=== PATIENT | male | born 1960 | race Caucasian/White ===

== ENCOUNTER 2020-02-10 10:08 | Outpatient (REF) | payer BC, SELFPAY ==
[2020-02-10 11:46] LABS: Estimated Average Glucose 166 mg/dL; Hemoglobin A1c % 7.4 %
[2020-02-10 12:02] LABS: Alanine Aminotransferase 55 U/L (0-40); Anion Gap 12 (12-20); Aspartate Amino Transferase 30 U/L (5-37); Blood Urea Nitrogen 15 mg/dL (9-16); Calcium 8.8 mg/dL (8.4-10.2); Carbon Dioxide 28 mmol/L (22-29); Chloride 102 mmol/L (96-108); Cholesterol 134 mg/dL; Estimated Glomerular Filt Rate > 60; Glucose Fasting 118 mg/dL (60-99); HDL Cholesterol 31 mg/dL; LDL Cholesterol Calculated 85 mg/dl; Potassium 4.6 mmol/l (3.3-5.1); Sodium 137 mmol/L (135-145); Triglycerides 94 mg/dL
[2020-02-10 12:23] LABS: Creatinine Urine 162.46 mg/dL; Microalbum/Creatinine Ratio Ur 14.1 ug/mg cr
== END 2020-02-10 10:09 | disposition home or self-care (01) ==
LOC: HO.HMGCLDS 10:08
PROVIDERS: PCP Internal Medicine; Visit Provider Internal Medicine
DX: E78.5 Hyperlipidemia, unspecified (principal); I10 Essential (primary) hypertension; E11.65 Type 2 diabetes mellitus with hyperglycemia
CPT/HCPCS: 80048; 80061; 82043; 83036; 84450; 84460

== ENCOUNTER 2020-05-27 10:47 | Outpatient (REF) | payer BC, SELFPAY ==
[2020-05-27 14:36] LABS: Alanine Aminotransferase 45 U/L (0-40); Anion Gap 13 (12-20); Aspartate Amino Transferase 25 U/L (5-37); Blood Urea Nitrogen 19 mg/dL (9-16); Calcium 8.6 mg/dL (8.4-10.2); Carbon Dioxide 26 mmol/L (22-29); Chloride 101 mmol/L (96-108); Cholesterol 122 mg/dL; Estimated Glomerular Filt Rate > 60; Glucose Fasting 119 mg/dL (60-99); HDL Cholesterol 26 mg/dL; LDL Cholesterol Calculated 78 mg/dl; Potassium 4.3 mmol/L (3.3-5.1); Sodium 136 mmol/L (135-145); Triglycerides 93 mg/dL
[2020-05-27 14:39] LABS: Microalbumin Urine < 5.0 mg/L
== END 2020-05-27 10:48 | disposition home or self-care (01) ==
LOC: HO.HMGCLDS 10:47
PROVIDERS: PCP Internal Medicine; Visit Provider Internal Medicine
DX: I10 Essential (primary) hypertension (principal); E66.9 Obesity, unspecified; E78.2 Mixed hyperlipidemia; E11.65 Type 2 diabetes mellitus with hyperglycemia
CPT/HCPCS: 36415; 80048; 80061; 82043; 84450; 84460

== ENCOUNTER 2020-10-24 11:48 | Outpatient (REF) | payer BC, SELFPAY ==
[2020-10-24 14:13] LABS: Estimated Average Glucose 209 mg/dL; Hemoglobin A1C 282.1692 umol/L; Hemoglobin A1c % 8.9 %
[2020-10-24 15:26] LABS: Alanine Aminotransferase 33 U/L (0-40); Anion Gap 15 (12-20); Aspartate Amino Transferase 21 U/L (5-37); Blood Urea Nitrogen 13 mg/dL (9-16); Calcium 8.9 mg/dL (8.4-10.2); Carbon Dioxide 24 mmol/L (22-29); Chloride 105 mmol/L (96-108); Cholesterol 121 mg/dL; Estimated Glomerular Filt Rate > 60; Glucose Fasting 151 mg/dL (60-99); HDL Cholesterol 30 mg/dL; LDL Cholesterol Calculated 68 mg/dl; Potassium 4.6 mmol/L (3.3-5.1); Sodium 139 mmol/L (135-145); Triglycerides 119 mg/dL
== END 2020-10-24 11:49 | disposition home or self-care (01) ==
LOC: HO.HMGCLDS 11:48
PROVIDERS: PCP Internal Medicine; Visit Provider Internal Medicine
DX: E11.65 Type 2 diabetes mellitus with hyperglycemia (principal); E66.9 Obesity, unspecified; E78.2 Mixed hyperlipidemia; I10 Essential (primary) hypertension
CPT/HCPCS: 36415; 80048; 80061; 83036; 84450; 84460

== ENCOUNTER 2021-02-03 07:05 | Outpatient (REF) | payer BC, SELFPAY ==
[2021-02-03 12:06] LABS: Estimated Average Glucose 203 mg/dL; Hemoglobin A1c % 8.7 %
[2021-02-03 12:11] LABS: Alanine Aminotransferase 54 U/L (0-40); Anion Gap 14 (12-20); Aspartate Amino Transferase 29 U/L (5-37); Blood Urea Nitrogen 13 mg/dL (9-16); Calcium 8.9 mg/dL (8.4-10.2); Carbon Dioxide 25 mmol/L (22-29); Chloride 103 mmol/L (96-108); Cholesterol 180 mg/dL; Estimated Glomerular Filt Rate > 60; Glucose Fasting 169 mg/dL (60-99); HDL Cholesterol 30 mg/dL; LDL Cholesterol Calculated 130 mg/dl; Potassium 4.6 mmol/L (3.3-5.1); Sodium 137 mmol/L (135-145); Triglycerides 103 mg/dL
== END 2021-02-03 07:06 | disposition home or self-care (01) ==
LOC: HO.HMGCLDS 07:05
PROVIDERS: PCP Internal Medicine; Visit Provider Internal Medicine
DX: I10 Essential (primary) hypertension (principal); E66.9 Obesity, unspecified; E78.2 Mixed hyperlipidemia; E11.65 Type 2 diabetes mellitus with hyperglycemia
CPT/HCPCS: 36415; 80048; 80061; 83036; 84450; 84460

== ENCOUNTER 2021-05-24 06:01 | Outpatient (REF) | payer BC, SELFPAY ==
[2021-05-24 11:34] LABS: Alanine Aminotransferase 37 U/L (0-40); Anion Gap 16 (12-20); Aspartate Amino Transferase 21 U/L (5-37); Blood Urea Nitrogen 14 mg/dL (9-16); Calcium 9.3 mg/dL (8.4-10.2); Carbon Dioxide 26 mmol/L (22-29); Chloride 101 mmol/L (96-108); Cholesterol 123 mg/dL; Estimated Glomerular Filt Rate > 60; Glucose Fasting 133 mg/dL (60-99); HDL Cholesterol 27 mg/dL; LDL Cholesterol Calculated 76 mg/dl; Potassium 4.7 mmol/L (3.3-5.1); Sodium 138 mmol/L (135-145); Triglycerides 102 mg/dL
[2021-05-24 12:13] LABS: Creatinine Urine 214.45 mg/dL; Microalbum/Creatinine Ratio Ur 9.3 ug/mg cr
[2021-05-24 12:17] LABS: Estimated Average Glucose 177 mg/dL; Hemoglobin A1c % 7.8 %
== END 2021-05-24 06:02 | disposition home or self-care (01) ==
LOC: HO.HMGCLDS 06:01
PROVIDERS: Visit Provider Internal Medicine
DX: E11.65 Type 2 diabetes mellitus with hyperglycemia (principal); E78.2 Mixed hyperlipidemia; E66.9 Obesity, unspecified; I10 Essential (primary) hypertension
CPT/HCPCS: 36415; 80048; 80061; 82043; 83036; 84450; 84460

== ENCOUNTER 2021-07-06 16:35 | Outpatient (REF) | payer BC, SELFPAY ==
[2021-07-06 16:48] LABS: Appearance Urine CLEAR; Color Urine YELLOW; Glucose Urine UA NEG (NEG); Leukocyte Esterase Urine NEG (NEG); Nitrite Urine NEG (NEG); Specific Gravity - Urine >= 1.030 (1.005-1.025); UACC Culture Trigger NO; Urine Blood 1+ (NEG); Urine Ketones NEG (NEG); Urine Protein 1+ MG/DL (NEG-TRACE)
[2021-07-06 17:02] LABS: Bacteria Urine TRACE /LPF; RBC Urine 0-2 /HPF (0); Squamous Epithelial Cell Urine TRACE /LPF; WBC Urine 0 /HPF (0-4)
== END 2021-07-06 16:36 | disposition home or self-care (01) ==
LOC: HO.LNP 16:35
PROVIDERS: Visit Provider Internal Medicine
DX: R10.30 Lower abdominal pain, unspecified (principal)
CPT/HCPCS: 81001

== ENCOUNTER 2021-07-28 08:53 | Outpatient (REF) | payer BC, SELFPAY ==
--- NOTE | ~2021-07-28 | US_ITS ---
EXAMINATION: US PELVIS LIMITED (BLADDER) CLINICAL INFORMATION: Lower abdominal pain, unspecified. COMPARISON: X-ray abdomen 08/29/2019. TECHNIQUE: Real-time imaging of the bladder. FINDINGS: BLADDER: Well distended and normal. Bilateral ureteral jets are demonstrated. Prevoid bladder volume is 524 mL. Postvoid bladder volume is 166 mL. ADDITIONAL FINDINGS: The prostate is enlarged. US/US bladder IMPRESSION: Moderate to significant postvoid urinary bladder retention. Normal bilateral ureteral jets seen.
== END 2021-07-28 08:54 | disposition home or self-care (01) ==
LOC: HO.HMGCX 08:53
PROVIDERS: Visit Provider Internal Medicine
DX: R10.30 Lower abdominal pain, unspecified (principal); R31.29 Other microscopic hematuria
CPT/HCPCS: 76857

== ENCOUNTER 2021-09-05 08:09 | Outpatient (REF) | payer BC, SELFPAY ==
[2021-09-05 11:56] LABS: Alanine Aminotransferase 39 U/L (0-40); Anion Gap 16 (12-20); Aspartate Amino Transferase 20 U/L (5-37); Blood Urea Nitrogen 24 mg/dL (9-16); Calcium 9.1 mg/dL (8.4-10.2); Carbon Dioxide 24 mmol/L (22-29); Chloride 102 mmol/L (96-108); Cholesterol 125 mg/dL; Estimated Glomerular Filt Rate > 60; Glucose Fasting 147 mg/dL (60-99); HDL Cholesterol 29 mg/dL; LDL Cholesterol Calculated 76 mg/dl; Potassium 4.7 mmol/L (3.3-5.1); Sodium 137 mmol/L (135-145); Triglycerides 101 mg/dL
[2021-09-05 12:18] LABS: Estimated Average Glucose 166 mg/dL; Hemoglobin A1c % 7.4 %
== END 2021-09-05 08:10 | disposition home or self-care (01) ==
LOC: HO.HMGCLDS 08:09
PROVIDERS: PCP Internal Medicine; Visit Provider Internal Medicine
DX: E11.65 Type 2 diabetes mellitus with hyperglycemia (principal); I10 Essential (primary) hypertension; E66.9 Obesity, unspecified; E78.2 Mixed hyperlipidemia
CPT/HCPCS: 36415; 80048; 80061; 83036; 84450; 84460

== ENCOUNTER 2022-02-02 06:16 | Outpatient (REF) | payer BC, SELFPAY ==
[2022-02-02 12:00] LABS: Estimated Average Glucose 174 mg/dL; Hemoglobin A1c % 7.7 %
[2022-02-02 12:50] LABS: Alanine Aminotransferase 43 U/L (0-40); Anion Gap 16 (12-20); Aspartate Amino Transferase 22 U/L (5-37); Blood Urea Nitrogen 15 mg/dL (9-16); Carbon Dioxide 25 mmol/L (22-29); Chloride 102 mmol/L (96-108); Cholesterol 90 mg/dL; Estimated Glomerular Filt Rate > 60; Glucose Fasting 154 mg/dL (60-99); HDL Cholesterol 25 mg/dL; LDL Cholesterol Calculated 50 mg/dl; Potassium 4.3 mmol/L (3.3-5.1); Sodium 139 mmol/L (135-145); Triglycerides 78 mg/dL
== END 2022-02-02 06:17 | disposition home or self-care (01) ==
LOC: HO.HMGCLDS 06:16
PROVIDERS: PCP Internal Medicine; Visit Provider Internal Medicine
DX: I10 Essential (primary) hypertension (principal); E66.9 Obesity, unspecified; E78.2 Mixed hyperlipidemia; E11.65 Type 2 diabetes mellitus with hyperglycemia
CPT/HCPCS: 36415; 80048; 80061; 83036; 84450; 84460

== ENCOUNTER → 2022-03-19 07:11 | Outpatient (REF) | payer BC, SELFPAY | LOC: HO.CARD 07:11 | PROVIDERS: Visit Provider Internal Medicine | DX: R00.0 Tachycardia, unspecified (principal); I10 Essential (primary) hypertension | CPT/HCPCS: 93242 ==

== ENCOUNTER → 2022-03-22 12:38 | Outpatient (BNVA) | payer BC, SELFPAY | PROVIDERS: PCP Internal Medicine; Referring Provider Internal Medicine; Visit Provider Internal Medicine | DX: Z13.89 Encounter for screening for other disorder (principal) ==

== ENCOUNTER 2022-03-22 13:21 | Inpatient (IN) | payer BC, SELFPAY ==
[2022-03-22 13:25] VITALS: BP 147/95; PULSE 138; RESP 18; TEMP 36.4; O2SAT 96; BMI 35.9
--- NOTE | 2022-03-22 13:40 | ED_ITS ---
HPI - General Adult General Chief complaint: Arrhythmia/Palpitations Stated complaint: sent from cardiology. a-flutter Time Seen by Provider: 03/22/22 13:39 Source: patient Mode of arrival: ambulatory Limitations: no limitations History of Present Illness HPI narrative: Patient is a 61 year old assigned male at with a history of HTN and DM presenting to the emergency department today with palpitations. Patient states that over the last few weeks he has had palpitations. Patient states that he was evaluated by cardiology who recommended he come to the emergency department, immediately. Patient states that he is somewhat short of breath. Patient denies any dizziness, lightheadedness, abdominal pain, nausea, vomiting, fever, chills, blurry vision, double vision, loss of vision, chest pain, back pain, night sweats, pain with urination, increased urinary frequency, increased urinary urgency, blood in his urine or stool, syncope or a near syncopal episode, recent trauma or falls, bowel incontinence, bladder incontinence, bowel retention, bladder retention, or any other complaints at this time. Onset (ago): week(s) Severity: mild Severity scale (1-10): 2 Relieving factors: none Exacerbating factors: none Associated symptoms: shortness of breath Treatments prior to arrival: none Related Data Home Medications Medication Instructions Recorded Confirmed aspirin 81 mg tablet,delayed 81 mg PO DAILY 03/07/22 03/22/22 release (Adult Low Dose Aspirin) Previous Rx's Medication Instructions Recorded atorvastatin 80 mg tablet 80 mg PO DAILY #90 tabs 12/19/21 lisinopril 20 mg tablet 20 mg PO DAILY #90 tabs 12/19/21 metformin 1,000 mg tablet 1,000 mg PO BID #180 tabs 12/19/21 metoprolol succinate 25 mg 25 mg PO DAILY #30 tabs 03/07/22 tablet,extended release 24 hr Allergies Allergy/AdvReac Type Severity Reaction Status Date / Time No Known Allergies Allergy Verified 03/22/22 12:52 Review of Systems Constitutional: Constitutional: Reports no additional constitutional complaints, Denies chills, Denies fever(s) and Denies night sweats Eyes: Eyes: Reports no additional eye complaints, Denies blurry vision, Denies change in vision, Denies diplopia, Denies eye discharge, Denies loss of vision and Denies eye pain ENT: Denies dizziness Cardiovascular: Cardiovascular: Reports no additional cardiovascular complaints, Denies chest pain, Reports rapid heart rate, Denies lightheadedness, Denies Loss of Consciousness and Reports dyspnea Respiratory: Respiratory: Reports no additional respiratory complaints and Reports dyspnea Gastrointestinal: Gastrointestinal: Reports no additional gastrointestinal complaints, Denies abdominal pain, Denies melena, Denies hematochezia, Denies change in bowel habits and Denies change in stool character Genitourinary: Genitourinary: Reports no additional male genitourinary complaints, Denies hematuria, Denies oliguria, Denies difficulty urinating, Denies dysuria, Denies urinary frequency, Denies urinary hesitancy, Denies urin db incontinence and Denies urinary urgency Musculoskeletal: Musculoskeletal: Reports no additional musculoskeletal complaints, Denies numbness and Denies tingling Neurologic: Denies dizziness, Denies loss of vision, Denies numbness and Denies tingling Psychiatric: Psychiatric: Reports no additional psychiatric complaints Endocrine: Endocrine: Reports no additional endocrine complaints Hematologic/Lymphatic: Hematologic/Lymphatic: Reports no additional hematologic/lymphatic complaints Allergic/Immunologic: Allergic/Immunologic: Reports no additional allergic/immunologic complaints [facility] Past Medical History Attestation statement: The following information was validated with the patient. Source: old records reviewed and nursing notes reviewed Medical History COVID-19 vaccination refused Depression Diabetes mellitus with hyperglycemia, without long-term current use of insulin Essential hypertension History of COVID-19 Incomplete right bundle branch block Lower abdominal pain Mixed dyslipidemia Obesity Sinus tachycardia Tubular adenoma of colon Urethral stricture Surgical History No pertinent past surgical history Family History Family History Father Diabetes mellitus Smoker High cholesterol Mother Cirrhosis Brother No problems noted. Sister No problems noted. Son No problems noted. Daughter No problems noted. 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 Current occupational exposures/hazards: Yes Cognitive needs: No Hearing needs: No Vision needs: Yes Physical Exam ED Vital Signs: Vital Signs - 24 hr 03/22/22 13:25 Temperature 97.5 F Pulse Rate 138 H Respiratory Rate 18 Blood Pressure 147/95 H Pulse Oximetry 96 Oxygen Delivery Method Room Air BMI result Body Mass Index 35.9 Const General: cooperative, no acute distress, alert and awake Nutritional Appearance: well nourished Orientation/consciousness: patient oriented x3 Limitations: no limitations HENMT Head: Yes normal to inspection and Yes atraumatic Ears: hearing grossly normal bilaterally and external ears normal General nose exam: Normal external nose present, no nasal discharge noted and no epistaxis Face and sinus: Yes normal facial exam, No abrasion and No laceration Mouth: Normal oral and palatal mucosa present, no drooling and no muffled voice Eyes General: appearance normal, both eyes and all related structures Periorbital: periorbital findings normal Eyelids: Yes eyelids normal Conjunctivae: conjunctivae normal Pupils: Equal, round and reactive pupils present EOM: EOMs intact bilaterally Neck Neck: Yes normal visual inspection, Yes full ROM and Yes no lymphadenopathy Chest Chest palpation & inspection: normal inspection of the chest Resp Effort & Inspection: normal respiratory effort and able to speak in complete sentences Auscultation: clear to auscultation bilaterally Cardio Rate: regular rate Rhythm: abnormal rhythm irregularly irregular GI Inspection: Yes normal to inspection Palpation (GI): Soft to palpation, not firm, nontender, no guarding and not rigid Neuro General: patient oriented x3 and moves all extremities Cranial nerves: Yes Equal, round and reactive pupils present Cognition (Neuro): normal cognition Motor exam (neuro): 5/5 motor strength present throughout Sensory Exam: Normal double simultaneous stimulation for sensation Coordination: [id number] test normal Extrem General: Yes normal to inspection, Yes full ROM and Yes capillary refill normal Psych Appearance: grossly normal Mental Status: mental status grossly normal Affect: normal affect Attitude: cooperative Thought process: Normal thought process present Thought content: Normal thought content present Insight: Good insight present (Psych) Medications Administered Generic Name Dose Route Start Last Admin Trade Name Freq PRN Reason Stop Dose Admin Diltiazem HCl 125 mg/ Sodium 125 mls @ 0 mls/hr 03/22/22 16:30 03/22/22 17:21 Chloride IVCONT 15 mg/hr .Q0M MUU 15 mls/hr Titration Protocol Per Protocol Discontinued Medications Generic Name Dose Route Start Last Admin Trade Name Lamar PRN Reason Stop Dose Admin Diltiazem HCl 10 mg 03/22/22 16:14 03/22/22 16:20 Diltiazem Hcl 50 Mg/10 Ml Vial IVPUSH 03/22/22 16:15 10 mg STAT STA Administration Sodium Chloride 1,000 mls @ 999 mls/hr 03/22/22 14:15 03/22/22 15:41 Ns IV 03/22/22 15:15 Infused .Q1H1M UMU Infusion Metoprolol Tartrate 5 mg 03/22/22 13:40 03/22/22 14:16 Metoprolol Tartrate 5 Mg/5 Ml Vial IVPUSH 03/22/22 13:41 5 mg ONCE ONE Administration Metoprolol Tartrate 5 mg 03/22/22 14:48 03/22/22 15:25 Metoprolol Tartrate 5 Mg/5 Ml Vial IVPUSH 03/22/22 14:49 5 mg ONCE ONE Administration Metoprolol Tartrate 5 mg 03/22/22 15:31 03/22/22 15:52 Metoprolol Tartrate 5 Mg/5 Ml Vial IVPUSH 03/22/22 15:32 5 mg ONCE ONE Administration Medical Decision Making Medical Decision Making [facility] Narrative: Patient is a 61 year old assigned male at with a history of HTN and DM presenting to the emergency department today with a rapid heart rate. Patient's physical exam showed a rapid irregular cardiac rhythm but was otherwise unremarkable. Patient's blood work was unremarkable. Patient's EKG auto-read as sinus tachycardia however, the vice president marketing & development read it as atrial flutter with a rapid rate. Patient's chest x-ray showed no acute process. I explained my physical exam findings as well as all test results to the patient. I answered all questions asked by the patient. Patient was given 5mg of lopressor every 15 minutes for a total of 15mg that did not decrease his heart rate. Patient was given 10mg of Cardizem that did not decrease his heart rate. Patient was then started on a cardizem drip. I spoke to Dr. Valadez who recommended the patient be admitted to medicine and cardiology will consult. I spoke to the hospitalist team who agreed to admission. Patient verbalized agreement and understanding with this treatment plan and admission. Differential Diagnosis Differential Diagnoses: The differential diagnosis associated with the prese ntation includes atrial flutter with RVR Consult Healthcare Provider Management of the patient was discussed with: Hospitalist (agreed to admission) and District Resource Officer (spoke to Dr. Valadez who recommended admission with cards follow) Lab Data MDM Lab Attestation statement: I reviewed the patient's lab results. Result Diagrams: 03/22/22 13:55 03/22/22 13:55 Labs: Lab Results 03/22/22 03/22/22 03/22/22 Range/Units 13:55 13:55 13:55 WBC 9.5 (4.8-10.8) X10*3/uL RBC 5.33 (4.60-5.80) X10*6/uL Hgb 14.6 (14.0-18.0) g/dl Hct 43.8 (42.0-52.0) % MCV 82.2 (80.0-98.0) fL MCH 27.4 (27.0-33.0) pg MCHC 33.3 (31.0-36.0) g/dl RDW 12.7 (11.0-16.0) % Plt Count 347 (160-400) X10*3/uL MPV 9.1 L (9.4-12.4) fL Immature Gran % (Auto) 0.3 (0.0-0.4) % Neut % (Auto) 59.1 (45-73) % Lymph % (Auto) 25.1 (20-40) % [place] % (Auto) 9.8 (2-11) % Eos % (Auto) 5.0 H (0-4) % Baso % (Auto) 0.7 (0-2) % Lymph # (Auto) 2.4 (1.2-4.9) X10*3/uL [place] # (Auto) 0.9 (0.1-1.2) X10*3/uL Eos # (Auto) 0.5 H (0.0-0.4) X10*3/uL Baso # (Auto) 0.1 (0.0-0.2) X10*3/uL Abs Immat Gran (auto) 0.03 (0.00-0.03) X10*3/uL Absolute Neuts (auto) 5.6 (2.0-8.3) x10*3/uL Absolute Nucleated RBC 0.000 (0.0-0.012) X10*3/uL Nucleated RBC % (auto) 0.0 (0.0-0.2) /100WBC PT 13.6 H (10.0-13.1) SEC INR 1.2 H (0.9-1.1) APTT 33.3 (26.0-36.4) SEC D-Dimer High Sensitivty NG/ML Sodium 138 (135-145) mmol/L Potassium 4.8 (3.3-5.1) mmol/L Chloride 106 (96-108) mmol/L Carbon Dioxide 23 (22-29) mmol/L Anion Gap 14 (12-20) BUN 17 H (9-16) mg/dL Creatinine 0.86 (0.5-1.4) mg/dL Estim Creat Clear Calc 115.1 Estimated GFR > 60 Random Glucose 122 H (60-115) mg/dL Calcium 9.0 (8.4-10.2) mg/dL Total Bilirubin 0.5 (0.0-1.0) mg/dL AST 19 (5-37) U/L ALT 29 (0-40) U/L Alkaline Phosphatase 60 (39-117) U/L Troponin I High Sens (<3.5-35.0) ng/L Total Protein 6.8 (6.5-8.0) g/dL Albumin 4.1 (3.5-5.0) g/dL COVID-19 (BHUPINDER) (Negative) COVID-19 Clin Com 03/22/22 03/22/22 03/22/22 Range/Units 13:55 17:07 17:08 WBC (4.8-10.8) X10*3/uL RBC (4.60-5.80) X10*6/uL Hgb (14.0-18.0) g/dl Hct (42.0-52.0) % MCV (80.0-98.0) fL MCH (27.0-33.0) pg MCHC (31.0-36.0) g/dl RDW (11.0-16.0) % Plt Count (160-400) X10*3/uL MPV (9.4-12.4) fL Immature Gran % (Auto) (0.0-0.4) % Neut % (Auto) (45-73) % Lymph % (Auto) (20-40) % [place] % (Auto) (2-11) % Eos % (Auto) (0-4) % Baso % (Auto) (0-2) % Lymph # (Auto) (1.2-4.9) X10*3/uL [place] # (Auto) (0.1-1.2) X10*3/uL Eos # (Auto) (0.0-0.4) X10*3/uL Baso # (Auto) (0.0-0.2) X10*3/uL Abs Immat Gran (auto) (0.00-0.03) X10*3/uL Absolute Neuts (auto) (2.0-8.3) x10*3/uL Absolute Nucleated RBC (0.0-0.012) X10*3/uL Nucleated RBC % (auto) (0.0-0.2) /100WBC PT (10.0-13.1) SEC INR (0.9-1.1) APTT (26.0-36.4) SEC D-Dimer High Sensitivty 218 NG/ML Sodium (135-145) mmol/L Potassium (3.3-5.1) mmol/L Chloride (96-108) mmol/L Carbon Dioxide (22-29) mmol/L Anion Gap (12-20) BUN (9-16) mg/dL Creatinine (0.5-1.4) mg/dL Estim Creat Clear Calc Estimated GFR Random Glucose (60-115) mg/dL Calcium (8.4-10.2) mg/dL Total Bilirubin (0.0-1.0) mg/dL AST (5-37) U/L ALT (0-40) U/L Alkaline Phosphatase (39-117) U/L Troponin I High Sens 4.2 (<3.5-35.0) ng/L Total Protein (6.5-8.0) g/dL Albumin (3.5-5.0) g/dL COVID-19 (BHUPINDER) Negative (Negative) COVID-19 Clin Com See Note Radiology Impression Discussion of test interpretation with radiology: I have reviewed the radiologist's reading. Radiologist Impression: EXAMINATION: XR CHEST CLINICAL INFORMATION: Atrial fibrillation. COMPARISON: Chest and rib radiographs dated 04/25/2018. TECHNIQUE: 2 views of the chest were obtained. FINDINGS: No significant abnormality is noted involving the heart, lungs, mediastinum, bony thorax or soft tissues. XR/XR chest 2V IMPRESSION: No acute cardiopulmonary process. Dictated By: Jose Angel Gamboa MD Signed By: Electronically signed by Jose Angel Gamboa MD 03/22/22 1506 Critical Care Time Critical Care Time Critical Care Time: Yes Total Critical Care Time: 30 Attestation: I spent 30 minutes of Critical Care Time with this patient. This does not include time spent on separately reported billable procedures. Discharge Plan Discharge Clinical Impression: Atrial flutter with rapid ventricular response Patient Disposition: Admitted As Inpatient Prescriptions: No Action metformin 1,000 mg tablet 1,000 mg PO BID Qty: 180 1RF atorvastatin 80 mg tablet 80 mg PO DAILY Qty: 90 1RF lisinopril 20 mg tablet 20 mg PO DAILY Qty: 90 1RF aspirin [Adult Low Dose Aspirin] 81 mg tablet,delayed release (DR/EC) 81 mg PO DAILY metoprolol succinate 25 mg tablet extended release 24 hr 25 mg PO DAILY Qty: 30 1RF
--- NOTE | 2022-03-22 13:41 | ECG_ITS ---
Test Reason : PALPUTATIONS Blood Pressure : / mmHG Vent. Rate : 137 BPM Atrial Rate : 137 BPM P-R Int : 120 ms QRS Dur : 130 ms QT Int : 306 ms P-R-T Axes : 072 122 -10 degrees QTc Int : 462 ms Atrial flutter Right bundle branch block Left posterior fascicular block Bifascicular block Abnormal ECG When compared with ECG of 06-MAR-2010 07:26, Vent. rate has increased BY 77 BPM Right bundle branch block has replaced Incomplete right bundle branch block Nonspecific T wave abnormality now evident in Inferior leads T wave amplitude has decreased in Anterior leads Referred By: Fior Evans Electronically Signed By:Asher Garsia
[2022-03-22 13:59] LABS: MANUAL DIFF FLAG NO
[2022-03-22 14:01] LABS: Basophils Absolute Auto 0.1 X10*3/uL (0.0-0.2); Basophils Percent Auto 0.7 % (0-2); Eosinophils Absolute Auto 0.5 X10*3/uL (0.0-0.4); Hematocrit 43.8 % (42.0-52.0); Hemoglobin 14.6 g/dl (14.0-18.0); Imm Gran Abs Auto 0.03 X10*3/uL (0.00-0.03); Imm Gran Pct Auto 0.3 % (0.0-0.4); Lymphocytes Absolute Auto 2.4 X10*3/uL (1.2-4.9); Lymphocytes Percent Auto 25.1 % (20-40); Mean Corpuscular HGB Conc 33.3 g/dl (31.0-36.0); Mean Corpuscular Hemoglobin 27.4 pg (27.0-33.0); Mean Corpuscular Volume 82.2 fL (80.0-98.0); Mean Platelet Volume 9.1 fL (9.4-12.4); Monocytes Absolute Auto 0.9 X10*3/uL (0.1-1.2); Monocytes Percent Auto 9.8 % (2-11); Neutrophils Absolute Auto 5.6 x10*3/uL (2.0-8.3); Neutrophils Percent Auto 59.1 % (45-73); Platelet Count 347 X10*3/uL (160-400); Red Blood Count 5.33 X10*6/uL (4.60-5.80); Red Cell Distribution Width 12.7 % (11.0-16.0); White Blood Count 9.5 X10*3/uL (4.8-10.8)
[2022-03-22 14:08] LABS: INTERNATIONAL NORM RATIO 1.2 (0.9-1.1); Prothrombin Time 13.6 SEC (10.0-13.1)
[2022-03-22 14:11] LABS: Partial Thromboplastin Time 33.3 SEC (26.0-36.4)
[2022-03-22] MEDS: 0.9 % Sodium Chloride 1,000 ML 999 ML IV (14:15)
[2022-03-22 14:16] LABS: Alanine Aminotransferase 29 U/L (0-40); Albumin Level 4.1 g/dL (3.5-5.0); Alkaline Phosphatase 60 U/L (39-117); Anion Gap 14 (12-20); Aspartate Amino Transferase 19 U/L (5-37); Bilirubin Total 0.5 mg/dL (0.0-1.0); Blood Urea Nitrogen 17 mg/dL (9-16); Carbon Dioxide 23 mmol/L (22-29); Chloride 106 mmol/L (96-108); Creatinine Clr Calc Pharmacy 115.1; Estimated Glomerular Filt Rate > 60; Glucose Random 122 mg/dL (60-115); Potassium 4.8 mmol/L (3.3-5.1); Sodium 138 mmol/L (135-145); Total Protein 6.8 g/dL (6.5-8.0)
[2022-03-22] MEDS: Metoprolol Tartrate 5 MG/5 ML VIAL IVPUSH ×3 (14:16→15:52)
[2022-03-22 14:23] LABS: Troponin-I High Sensitivity 4.2 ng/L (<3.5-35.0)
[2022-03-22] MEDS: dilTIAZem HCL 50 MG/10 ML VIAL 10 MG IVPUSH (16:20)
[2022-03-22] MEDS: dilTIAZem HCL 125 MG in 0.9 % Sodium Chloride 100 ML 10 MG IVCONT (16:57)
[2022-03-22 17:39] LABS: D Dimer High Sensitivity 218 NG/ML
[2022-03-22 17:41] LABS: COVID-19 Test Negative (Negative); IDNOW Serial# 9DB6401D
--- NOTE | 2022-03-22 18:11 | PM.IMHP ---
History of Present Illness Date of Service: 03/22/22 Chief Complaint: dyspnea 61yo M with HTN, NIDDM, obesity, and HLD who was [place] to [place] Val[place] [facility] [place] his PCP, Dr Jeanna Harris, for a 2-month history of dyspnea on exertion. He denies lightheadedness, palpitations, or chest pain. In the office, he was found to have new-onset atrial flutter with rapid ventricular response in the 130s-140s. He was sent to the ED. He was given 5 mg of IV metoprolol three times without response. He was then given 10 mg of IV diltiazem, also without response. Thus, a diltiazem drip was ordered and hospital admission was requested. Review of Systems Review of Systems: Yes all other systems are reviewed and are negative [facility] Medical History COVID-19 vaccination refused Depression Diabetes mellitus with hyperglycemia, without long-term current use of insulin Essential hypertension History of COVID-19 Incomplete right bundle branch block Lower abdominal pain Mixed dyslipidemia Obesity Sinus tachycardia Tubular adenoma of colon Urethral stricture Family History Father Diabetes mellitus Smoker High cholesterol Mother Cirrhosis Brother No problems noted. Sister No problems noted. Son No problems noted. Daughter No problems noted. 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 Glucose (Glucose Gel 15 Gm Gel..Gram.) 15 gm PO Q15M PRN; Protocol PRN Reason: per Hypoglycemia Standing Ord. Diltiazem HCl 125 mg/ Sodium (Chloride) 125 mls @ 0 mls/hr IVCONT .Q0M [facility]; Protocol Last Titration: 03/22/22 17:21 Dose: 15 mg/hr, 15 mls/hr Insulin Human Lispro (Insulin Lispro 100 Unit/Ml 3 Ml Vial) 0 unit SUBCUT QIDACHS [facility]; Protocol Pharmacy Consult (Consult Rx Perform Med Rec) 1 each MISCELLANE ONCE PRN PRN Reason: will be admitted Pharmacy Consult (Consult Rx Perform Med Rec) 1 each MISCELLANE STAT STA Stop: 03/22/22 17:42 Home Medications Medication Instructions Recorded Confirmed Last Taken Type aspirin 81 mg tablet,delayed 81 mg PO DAILY 03/07/22 03/22/22 Unknown History release (Adult Low Dose Aspirin) Physical Exam Vital Signs and Narrative: Vital Signs: Last Vital Signs Temp 97.5 F 03/22/22 13:25 Pulse 138 H 03/22/22 13:25 Resp 18 03/22/22 13:25 BP 147/95 H 03/22/22 13:25 Pulse Ox 96 03/22/22 13:25 O2 Del Method 03/22/22 13:25 BMI result Body Mass Index 35.9 Gen: in no acute distress HEENT: sclera anicteric, moist mucus membranes Neck: supple, no JVD Lungs: clear to auscultation bilaterally Heart: regular, rapid in the 130s, no murmurs Abd: soft, non-tender, non-distended Ext: no edema Skin: warm/well-perfused Neuro: alert and oriented x3, no focal findings Psych: appropriate affect Results Labs CBC and Chem 7: 03/22/22 13:55 03/22/22 13:55 Labs: Laboratory Results - last 24 hr 03/22/22 03/22/22 03/22/22 13:55 13:55 13:55 MCV 82.2 MCH 27.4 MCHC 33.3 RDW 12.7 Plt Count 347 MPV 9.1 L Immature Gran % (Auto) 0.3 Neut % (Auto) 59.1 Lymph % (Auto) 25.1 [place] % (Auto) 9.8 Eos % (Auto) 5.0 H Baso % (Auto) 0.7 Lymph # (Auto) 2.4 [place] # (Auto) 0.9 Eos # (Auto) 0.5 H Baso # (Auto) 0.1 Abs Immat Gran (auto) 0.03 Absolute Neuts (auto) 5.6 Absolute Nucleated RBC 0.000 Nucleated RBC % (auto) 0.0 PT 13.6 H INR 1.2 H APTT 33.3 D-Dimer High Sensitivty Anion Gap 14 Estim Creat Clear Calc 115.1 Estimated GFR > 60 Random Glucose 122 H Calcium 9.0 Total Bilirubin 0.5 AST 19 ALT 29 Alkaline Phosphatase 60 Troponin I High Sens Total Protein 6.8 Albumin 4.1 COVID-19 (BHUPINDER) COVID-19 Clin Com 03/22/22 03/22/22 03/22/22 13:55 17:07 17:08 MCV MCH MCHC RDW Plt Count MPV Immature Gran % (Auto) Neut % (Auto) Lymph % (Auto) [place] % (Auto) Eos % (Auto) Baso % (Auto) Lymph # (Auto) [place] # (Auto) Eos # (Auto) Baso # (Auto) Abs Immat Gran (auto) Absolute Neuts (auto) Absolute Nucleated RBC Nucleated RBC % (auto) PT INR APTT D-Dimer High Sensitivty 218 Anion Gap Estim Creat Clear Calc Estimated GFR Random Glucose Calcium Total Bilirubin AST ALT Alkaline Phosphatase Troponin I High Sens 4.2 Total Protein Albumin COVID-19 (BHUPINDER) Negative COVID-19 Clin Com See Note Imaging Radiologist's Impressions: Impressions Chest X-Ray 03/22/22 14:40 IMPRESSION: No acute cardiopulmonary process. Assessment and Plan (1) Atrial flutter with rapid ventricular response: Status: Acute Plan 61yo M with HTN, HLD, obesity, and DM2 referred to Cardiology for 2 months of exertional dyspnea and found to have atrial flutter with RVR unresponsive to IV metoprolol and IV diltiazem push # AF/RVR - admit to [facility] [place]. start diltiazem IV infusion. [id number] 2, will anticoagulate with apixaban. check TSH + Mg. check TTE. Cardiology consultation. # HTN - continue lisinopril + metoprolol succinate # DM2, A1c 7.7 (Jan 2022) - hold MTF, give correction-dose lispro # HLD - continue atorvastatin # VTE prophylaxis: apixaban # code status: full I anticipate that the patient will stay at least 2 midnights as an inpatient in the hospital due to the above reasons. It is neither reasonable nor safe to care for them in a less acute setting. Time Spent With Patient Time: Total time managing care of this patient today ____ minutes. Quality Stroke Does the patient have a stroke diagnosis?: No VTE Prior VTE?: No VTE Risk Level:: Medical - moderate - high VTE Device Contraindication: N/A - Device Ordered VTE Drug Contraindication: N/A - Med Ordered
--- NOTE | 2022-03-22 18:21 | PHA.MEDREC ---
Pharmacy Consult ? Medication Reconciliation Pharmacy has completed the medication reconciliation.
[2022-03-22 18:31] LABS: Thyroid Stimulating Hormone 0.68 uIU/mL (0.32-4.0)
[2022-03-22] MEDS: Apixaban 5 MG TABLET PO (22:37)
[2022-03-22] MEDS: Metoprolol Succinate ER 25 MG TAB.ER.24H PO (22:37)
[2022-03-22 23:28] VITALS: BP 114/74; PULSE 107; RESP 16; TEMP 36.4; O2SAT 96
[2022-03-23] VITALS (7 sets, daily range): BP systolic 93–125; BP diastolic 56–83; PULSE 62–133; RESP 14–20; TEMP 36.1–37.1; O2SAT 91–96
[2022-03-23] MEDS: dilTIAZem HCL 125 MG in 0.9 % Sodium Chloride 100 ML 15 MG IVCONT ×2 (02:32→13:55)
[2022-03-23] MEDS: Aspirin Enteric Coated 81 MG TABLET.DR PO (08:29)
[2022-03-23] MEDS: Apixaban 5 MG TABLET PO ×2 (08:29→20:59)
[2022-03-23] MEDS: Atorvastatin Calcium 80 MG TABLET PO (08:29)
[2022-03-23] MEDS: lisinopriL 20 MG TABLET PO (08:30)
[2022-03-23] MEDS: Furosemide 40 MG/4 ML VIAL IVPUSH (10:04)
[2022-03-23] MEDS: Digoxin 0.125 MG TABLET 0.25 MG PO ×3 (10:04→21:00)
--- NOTE | 2022-03-23 11:25 | P.CONCA_ITS ---
History of Present Illness
--- NOTE | 2022-03-23 11:25 | PM.CNCAR ---
History of Present Illness History of Present Illness Date of Service: 03/23/22 Requesting physician: Sanket Valadez Chief complaint: aflutter, CHF Narrative: 61-year-old gentleman who is presenting for atrial flutter. He apparently saw his primary care physician and was referred to our office for atrial flutter. He also has been experiencing some shortness of breath. He was advised to get admitted to the hospital. He has been getting metoprolol and heart rates for anywhere between 110 to 120s. He does not feel any palpitations but he has been noticing some dyspnea. Denies any peripheral edema or abdominal distension. Denying any chest discomfort. [facility] Past Medical History Medical History COVID-19 vaccination refused Depression Diabetes mellitus with hyperglycemia, without long-term current use of insulin Essential hypertension History of COVID-19 Incomplete right bundle branch block Lower abdominal pain Mixed dyslipidemia Obesity Sinus tachycardia Tubular adenoma of colon Urethral stricture Family History Family History Father Diabetes mellitus Smoker High cholesterol Mother Cirrhosis Brother No problems noted. Sister No problems noted. Son No problems noted. Daughter No problems noted. Surgical History Surgical History No pertinent past surgical history Social History Social History Household Members: Spouse and Children Housing: Apartment Do you presently have visiting nurse or other home services: No Unable to assess alcohol history related to: Unknown Alcohol intake: current Patient Tobacco Use Status: Former Tobacco user Tobacco use type: Cigarette Years Smoked: 5 yrs Smoked in Last 30 Days: No e-Cigarette/Vaping Use: Never Used Patient Interested in Nicotine Replacement: No Patient Given Instructions on How to Stop Smoking: No Second Hand Smoke Exposure: No Use of substances other than those prescribed or required for medical reasons: No Currently Displaying Signs/Symptoms of Drug Intoxication Withdrawal: No Any prior treatment program specific to substance use: No Have you been hit, kicked, punched, or otherwise hurt by someone within the past year? 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 Current occupational exposures/hazards: Yes Cognitive needs: No Hearing needs: No Vision needs: Yes Meds Allergies Allergy/AdvReac Type Severity Reaction Status Date / Time No Known Allergies Allergy Verified 03/22/22 12:52 Active Medications: Current Medications Acetaminophen (Acetaminophen 325 Mg Tablet) 650 mg PO Q6H PRN PRN Reason: Pain, Mild (Pain Scale 1-3) Apixaban (Apixaban 5 Mg Tablet) 5 mg PO BID [facility] Last Admin: 03/23/22 08:29 Dose: 5 mg Aspirin (Aspirin Enteric Coated 81 Mg Tablet.Dr) 81 mg PO DAILY [facility] Last Admin: 03/23/22 08:29 Dose: 81 mg Atorvastatin Calcium (Atorvastatin Calcium 80 Mg Tablet) 80 mg PO DAILY [facility] Last Admin: 03/23/22 08:29 Dose: 80 mg Dextrose (Dextrose 50 % 25 Gm/50 Ml Syringe) 25 gm IVPUSH Q15M PRN; Protocol PRN Reason: per Hypoglycemia Standing Ord. Digoxin (Digoxin 0.125 Mg Tablet) 0.25 mg PO Q6H [facility] Stop: 03/24/22 03:01 Last Admin: 03/23/22 10:04 Dose: 0.25 mg Furosemide (Furosemide 40 Mg/4 Ml Vial) 40 mg IVPUSH DAILY [facility]; Protocol Last Admin: 03/23/22 11:18 Dose: Not Given Glucose (Glucose Gel 15 Gm Gel..Gram.) 15 gm PO Q15M PRN; Protocol PRN Reason: per Hypoglycemia Standing Ord. Diltiazem HCl 125 mg/ Sodium (Chloride) 125 mls @ 0 mls/hr IVCONT .Q0M [facility]; Protocol Last Titration: 03/23/22 08:35 Dose: 15 mg/hr, 15 mls/hr Insulin Human Lispro (Insulin Lispro 100 Unit/Ml 3 Ml Vial) 0 unit SUBCUT QIDACHS [facility]; Protocol Last Admin: 03/23/22 07:32 Dose: Not Given Lisinopril (Lisinopril 20 Mg Tablet) 20 mg PO DAILY [facility]; Protocol Last Admin: 03/23/22 08:30 Dose: 20 mg Metoprolol Succinate (Metoprolol Succinate Er 25 Mg Tab.Er.24h) 25 mg PO BEDTIME [facility]; Protocol Last Admin: 03/22/22 22:37 Dose: 25 mg Ondansetron HCl (Ondansetron Hcl 4 Mg/2 Ml Vial) 4 mg IVPUSH Q8H PRN PRN Reason: Nausea and Vomiting Sodium Chloride (0.9 % Sodium Chloride Flush 3 Ml Syringe) 3 ml IVFLUSH QSHIFT [facility] Last Admin: 03/23/22 08:33 Dose: Not Given Home Medications Medication Instructions Recorded Confirmed Last Taken Type aspirin 81 mg tablet,delayed 81 mg PO DAILY 03/07/22 03/22/22 03/22/22 History release (Adult Low Dose Aspirin) metoprolol succinate 25 mg 25 mg PO BEDTIME 03/22/22 03/22/22 03/21/22 History tablet,extended release 24 hr Physical Exam Vital Signs: Vital Signs: Last Vital Signs Temp 97.0 F 03/23/22 10:59 Pulse 64 03/23/22 10:59 Resp 20 03/23/22 10:59 BP 110/56 L 03/23/22 10:59 Pulse Ox 94 03/23/22 10:59 O2 Del Method 03/23/22 10:59 BMI result Body Mass Index 35.9 GENERAL APPEARANCE: in no acute distress, pleasant. NECK: no carotid bruit, positive jugular venous distention. SKIN: no suspicious lesions, warm and dry. HEART: no murmurs, regular rate and rhythm. Tachycardic. LUNGS: clear to auscultation bilaterally. ABDOMEN: soft, nontender. EXTREMITIES: no edema. PERIPHERAL PULSES: equal. NEUROLOGIC: No gross deficits, AAO X 3 Objective Labs and Meds Result diagrams: 03/22/22 13:55 03/22/22 13:55 Lab results: Laboratory Results - last 24 hr 03/22/22 03/22/22 03/22/22 13:55 13:55 13:55 WBC 9.5 RBC 5.33 Hgb 14.6 Hct 43.8 MCV 82.2 MCH 27.4 MCHC 33.3 RDW 12.7 Plt Count 347 MPV 9.1 L Immature Gran % (Auto) 0.3 Neut % (Auto) 59.1 Lymph % (Auto) 25.1 [place] % (Auto) 9.8 Eos % (Auto) 5.0 H Baso % (Auto) 0.7 Lymph # (Auto) 2.4 [place] # (Auto) 0.9 Eos # (Auto) 0.5 H Baso # (Auto) 0.1 Abs Immat Gran (auto) 0.03 Absolute Neuts (auto) 5.6 Absolute Nucleated RBC 0.000 Nucleated RBC % (auto) 0.0 PT 13.6 H INR 1.2 H APTT 33.3 D-Dimer High Sensitivty Sodium 138 Potassium 4.8 Chloride 106 Carbon Dioxide 23 Anion Gap 14 BUN 17 H Creatinine 0.86 Estim Creat Clear Calc 115.1 Estimated GFR > 60 POC Glucose Random Glucose 122 H Calcium 9.0 Magnesium 2.0 Total Bilirubin 0.5 AST 19 ALT 29 Alkaline Phosphatase 60 Troponin I High Sens Total Protein 6.8 Albumin 4.1 TSH 0.68 COVID-19 (BHUPINDER) COVID-2080 Media 03/22/22 03/22/22 03/22/22 13:55 17:07 17:08 WBC RBC Hgb Hct MCV MCH MCHC RDW Plt Count MPV Immature Gran % (Auto) Neut % (Auto) Lymph % (Auto) [place] % (Auto) Eos % (Auto) Baso % (Auto) Lymph # (Auto) [place] # (Auto) Eos # (Auto) Baso # (Auto) Abs Immat Gran (auto) Absolute Neuts (auto) Absolute Nucleated RBC Nucleated RBC % (auto) PT INR APTT D-Dimer High Sensitivty 218 Sodium Potassium Chloride Carbon Dioxide Anion Gap BUN Creatinine Estim Creat Clear Calc Estimated GFR POC Glucose Random Glucose Calcium Magnesium Total Bilirubin AST ALT Alkaline Phosphatase Troponin I High Sens 4.2 Total Protein Albumin TSH COVID-19 (BHUPINDER) Negative COVID-2080 Media See Note 03/23/22 03/23/22 07:20 10:57 WBC RBC Hgb Hct MCV MCH MCHC RDW Plt Count MPV Immature Gran % (Auto) Neut % (Auto) Lymph % (Auto) [place] % (Auto) Eos % (Auto) Baso % (Auto) Lymph # (Auto) [place] # (Auto) Eos # (Auto) Baso # (Auto) Abs Immat Gran (auto) Absolute Neuts (auto) Absolute Nucleated RBC Nucleated RBC % (auto) PT INR APTT D-Dimer High Sensitivty Sodium Potassium Chloride Carbon Dioxide Anion Gap BUN Creatinine Estim Creat Clear Calc Estimated GFR POC Glucose 147 H 175 H Random Glucose Calcium Magnesium Total Bilirubin AST ALT Alkaline Phosphatase Troponin I High Sens Total Protein Albumin TSH COVID-19 (BHUPINDER) COVID-19 Clin Com Imaging Radiologist's impression: Impressions Chest X-Ray 03/22/22 14:40 IMPRESSION: No acute cardiopulmonary process. Assessment and Plan (1) Atrial flutter with rapid ventricular response: Status: Acute (2) CHF (congestive heart failure): Status: Acute Plan 61-year-old gentleman presenting for atrial flutter and dyspnea. Clinically volume overloaded and heart failure. Agree with checking echo today to assess for cardiomyopathy. He is on beta-jairo. Would advise digoxin loading. Gentle diuresis. If he has cardiomyopathy then he will need cardioversion with BARB. We will follow along the you. Thank you for allowing me to participate in the care of your patient. Please feel free to contact me if you have any questions. Time Spent With Patient Time: Total time managing care of this patient today ____ minutes. Procedures Date of Service Date of Service: 03/23/22
--- NOTE | 2022-03-23 11:34 | HO.PM.IMPN ---
Subjective Subjective Date of Service: 03/23/22 Interval History: persistent atrial flutter in 120s-130s dyspnea with exertion no chest pain no edema Review of Systems Review of Systems: Yes all other systems are reviewed and are negative Physical Exam Vital Signs: Vital Signs: Last Vital Signs Temp 97.0 F 03/23/22 10:59 Pulse 64 03/23/22 10:59 Resp 20 03/23/22 10:59 BP 110/56 L 03/23/22 10:59 Pulse Ox 94 03/23/22 10:59 O2 Del Method 03/23/22 10:59 BMI result Body Mass Index 35.9 Gen: in no acute distress HEENT: sclera anicteric, moist mucus membranes Neck: supple, JVD Lungs: clear to auscultation bilaterally Heart: rapid, regular, no murmurs Abd: soft, non-tender, non-distended Ext: no edema Skin: warm/well-perfused Neuro: alert and oriented x3, no focal findings Psych: appropriate affect Objective Data Active Medications Acetaminophen (Acetaminophen 325 Mg Tablet) 650 mg PO Q6H PRN PRN Reason: Pain, Mild (Pain Scale 1-3) Apixaban (Apixaban 5 Mg Tablet) 5 mg PO BID [facility] Last Admin: 03/23/22 08:29 Dose: 5 mg Documented By: RADHA Aspirin (Aspirin Enteric Coated 81 Mg Tablet.) 81 mg PO DAILY [facility] Last Admin: 03/23/22 08:29 Dose: 81 mg Documented By: RADHA Atorvastatin Calcium (Atorvastatin Calcium 80 Mg Tablet) 80 mg PO DAILY [facility] Last Admin: 03/23/22 08:29 Dose: 80 mg Documented By: RADHA Dextrose (Dextrose 50 % 25 Gm/50 Ml Syringe) 25 gm IVPUSH Q15M PRN; Protocol PRN Reason: per Hypoglycemia Standing Ord. Digoxin (Digoxin 0.125 Mg Tablet) 0.25 mg PO Q6H [facility] Stop: 03/24/22 03:01 Last Admin: 03/23/22 10:04 Dose: 0.25 mg Documented By: RADHA Furosemide (Furosemide 40 Mg/4 Ml Vial) 40 mg IVPUSH DAILY [facility]; Protocol Last Admin: 03/23/22 11:18 Dose: Not Given Documented By: RADHA Non-Admin Reason: Previously Administered Glucose (Glucose Gel 15 Gm Gel..Gram.) 15 gm PO Q15M PRN; Protocol PRN Reason: per Hypoglycemia Standing Ord. Diltiazem HCl 125 mg/ Sodium (Chloride) 125 mls @ 0 mls/hr IVCONT .Q0M [facility]; Protocol Last Titration: 03/23/22 08:35 Dose: 15 mg/hr, 15 mls/hr Documented By: RADHA Insulin Human Lispro (Insulin Lispro 100 Unit/Ml 3 Ml Vial) 0 unit SUBCUT QIDACHS [facility]; Protocol Last Admin: 03/23/22 07:32 Dose: Not Given Documented By: RADHA Non-Admin Reason: No Insulin Coverage Lisinopril (Lisinopril 20 Mg Tablet) 20 mg PO DAILY [facility]; Protocol Last Admin: 03/23/22 08:30 Dose: 20 mg Documented By: RADHA Metoprolol Succinate (Metoprolol Succinate Er 25 Mg Tab.Er.24h) 25 mg PO BEDTIME [facility]; Protocol Last Admin: 03/22/22 22:37 Dose: 25 mg Documented By: SANKET Ondansetron HCl (Ondansetron Hcl 4 Mg/2 Ml Vial) 4 mg IVPUSH Q8H PRN PRN Reason: Nausea and Vomiting Sodium Chloride (0.9 % Sodium Chloride Flush 3 Ml Syringe) 3 ml IVFLUSH QSHIFT [facility] Last Admin: 03/23/22 08:33 Dose: Not Given Documented By: RADHA Non-Admin Reason: IV Running Labs CBC & Chem 7: 03/22/22 13:55 03/22/22 13:55 Labs: Laboratory Results - last 24 hr 03/22/22 03/22/22 03/22/22 13:55 13:55 13:55 MCV 82.2 MCH 27.4 MCHC 33.3 RDW 12.7 Plt Count 347 MPV 9.1 L Immature Gran % (Auto) 0.3 Neut % (Auto) 59.1 Lymph % (Auto) 25.1 [place] % (Auto) 9.8 Eos % (Auto) 5.0 H Baso % (Auto) 0.7 Lymph # (Auto) 2.4 [place] # (Auto) 0.9 Eos # (Auto) 0.5 H Baso # (Auto) 0.1 Abs Immat Gran (auto) 0.03 Absolute Neuts (auto) 5.6 Absolute Nucleated RBC 0.000 Nucleated RBC % (auto) 0.0 PT 13.6 H INR 1.2 H APTT 33.3 D-Dimer High Sensitivty Anion Gap 14 Estim Creat Clear Calc 115.1 Estimated GFR > 60 POC Glucose Random Glucose 122 H Calcium 9.0 Magnesium 2.0 Total Bilirubin 0.5 AST 19 ALT 29 Alkaline Phosphatase 60 Troponin I High Sens Total Protein 6.8 Albumin 4.1 TSH 0.68 COVID-19 (BHUPINDER) COVID-19 Clin Com 03/22/22 03/22/22 03/22/22 13:55 17:07 17:08 MCV MCH MCHC RDW Plt Count MPV Immature Gran % (Auto) Neut % (Auto) Lymph % (Auto) [place] % (Auto) Eos % (Auto) Baso % (Auto) Lymph # (Auto) [place] # (Auto) Eos # (Auto) Baso # (Auto) Abs Immat Gran (auto) Absolute Neuts (auto) Absolute Nucleated RBC Nucleated RBC % (auto) PT INR APTT D-Dimer High Sensitivty 218 Anion Gap Estim Creat Clear Calc Estimated GFR POC Glucose Random Glucose Calcium Magnesium Total Bilirubin AST ALT Alkaline Phosphatase Troponin I High Sens 4.2 Total Protein Albumin TSH COVID-19 (BHUPINDER) Negative COVID-19 Clin Com See Note 03/23/22 03/23/22 07:20 10:57 MCV MCH MCHC RDW Plt Count MPV Immature Gran % (Auto) Neut % (Auto) Lymph % (Auto) [place] % (Auto) Eos % (Auto) Baso % (Auto) Lymph # (Auto) [place] # (Auto) Eos # (Auto) Baso # (Auto) Abs Immat Gran (auto) Absolute Neuts (auto) Absolute Nucleated RBC Nucleated RBC % (auto) PT INR APTT D-Dimer High Sensitivty Anion Gap Estim Creat Clear Calc Estimated GFR POC Glucose 147 H 175 H Random Glucose Calcium Magnesium Total Bilirubin AST ALT Alkaline Phosphatase Troponin I High Sens Total Protein Albumin TSH COVID-19 (BHUPINDER) COVID-19 Clin Com Assessment and Plan (1) Atrial flutter with rapid ventricular response: Status: Acute Plan hospital d#2 61yo M with HTN, HLD, obesity, and DM2 referred to Cardiology for 2 months of exertional dyspnea and found to have atrial flutter with RVR unresponsive to IV metoprolol and IV diltiazem push # AF/RVR - persistent RVR despite diltiazem IV infusion; will load with digoxin orally.? [id number] 2, will anticoagulate with apixaban.? Cardiology consulted. TTE- if cardiomyopathic, will need BARB-guided DCV # acute HF with unknown EF - TTE, diurese with furosemide, continue KEMAR-I + B-jairo # HTN - continue lisinopril + metoprolol succinate # DM2, A1c 7.7 (Jan 2022) - hold MTF, give correction-dose lispro # HLD - continue atorvastatin # VTE prophylaxis: apixaban # dispo: anticipate home once rate controlled In my clinical judgment, the patient requires continued inpatient hospitalization for the following reasons: rate control, tachyarrhythmia Time Spent With Patient Time: Total time managing care of this patient today __26__ minutes. Quality Stroke Does the patient have a stroke diagnosis?: No VTE Prior VTE?: No VTE Risk Level:: Medical - moderate - high VTE Device Contraindication: N/A - Device Ordered VTE Drug Contraindication: N/A - Med Ordered
[2022-03-23] MEDS: Insulin Lispro 100 UNIT/ML 3 ML VIAL SUBCUT ×3 (11:47→21:02)
--- NOTE | 2022-03-23 15:59 | MHC.CM.PN ---
Male 61 DX A Flutter, CHF He lives with his family. He is independent works and drives. A HCP has been documented. DP Home self care car in [facility].
[2022-03-23] MEDS: Metoprolol Succinate ER 25 MG TAB.ER.24H PO (21:01)
[2022-03-24] MEDS: dilTIAZem HCL 125 MG in 0.9 % Sodium Chloride 100 ML 7 MG IVCONT (02:36)
[2022-03-24] MEDS: Digoxin 0.125 MG TABLET 0.25 MG PO (02:37)
[2022-03-24 02:58] VITALS: BP 112/72; PULSE 58; RESP 15; TEMP 36.3; O2SAT 96
--- NOTE | 2022-03-24 06:43 | PC.NURSE ---
SHIFT EVAL [id number]: PT CONTINUES IN A FLUTTER WITH HR 70'S-80'S. CARDIZEM DRIP INFUSING AT 7MG/HR (DECREASED FROM 10 MG/HR). PT DENIES PALPITATIONS. DENIES CHEST PAIN. OOB AD BEATRICE IN ROOM AND TO BATHROOM WITHOUT ILL EFFECT. DENIES SHORTNESS OF BREATH. RECEIVED DIGOXIN PO OVERNIGHT FOR A TOTAL OF 4 DOSES.
[2022-03-24 07:24] VITALS: BP 126/84; PULSE 94; RESP 18; TEMP 36.4; O2SAT 98
[2022-03-24] MEDS: Furosemide 40 MG/4 ML VIAL IVPUSH (08:50)
[2022-03-24] MEDS: lisinopriL 20 MG TABLET PO (08:50)
[2022-03-24] MEDS: Apixaban 5 MG TABLET PO ×2 (08:50→21:15)
[2022-03-24] MEDS: Atorvastatin Calcium 80 MG TABLET PO (08:50)
[2022-03-24] MEDS: Aspirin Enteric Coated 81 MG TABLET.DR PO (08:50)
[2022-03-24 11:15] VITALS: BP 140/87; PULSE 76; RESP 18; TEMP 36.3; O2SAT 93
[2022-03-24 11:30] LABS: B Type Natriuretic Peptide 43 pg/mL (<100)
[2022-03-24] MEDS: Insulin Lispro 100 UNIT/ML 3 ML VIAL SUBCUT ×2 (11:45→21:16)
[2022-03-24 11:47] LABS: Anion Gap 12 (12-20); Blood Urea Nitrogen 17 mg/dL (9-16); Calcium 9.3 mg/dL (8.4-10.2); Carbon Dioxide 28 mmol/L (22-29); Chloride 103 mmol/L (96-108); Creatinine Clr Calc Pharmacy 97.1; Estimated Glomerular Filt Rate > 60; Glucose Random 161 mg/dL (60-115); Magnesium 2.2 mg/dL (1.6-2.6); Potassium 4.3 mmol/L (3.3-5.1); Sodium 139 mmol/L (135-145)
--- NOTE | 2022-03-24 12:41 | HO.PM.IMPN ---
Subjective Subjective Date of Service: 03/24/22 Interval History: dyspneic HR still 110s persistent Afib/flutter Review of Systems Review of Systems: Yes all other systems are reviewed and are negative Physical Exam Vital Signs: Vital Signs: Last Vital Signs Temp 97.4 F 03/24/22 11:15 Pulse 76 03/24/22 11:15 Resp 18 03/24/22 11:15 BP 140/87 H 03/24/22 11:15 Pulse Ox 93 03/24/22 11:15 O2 Del Method 03/24/22 11:15 BMI result Body Mass Index 35.9 Gen: in no acute distress HEENT: sclera anicteric, moist mucus membranes Neck: supple Lungs: clear to auscultation bilaterally Heart: rapid, irregular, no murmurs Abd: soft, non-tender, non-distended Ext: trace LE edema Skin: warm/well-perfused Neuro: alert and oriented x3, no focal findings Psych: appropriate affect Objective Data Active Medications Acetaminophen (Acetaminophen 325 Mg Tablet) 650 mg PO Q6H PRN PRN Reason: Pain, Mild (Pain Scale 1-3) Apixaban (Apixaban 5 Mg Tablet) 5 mg PO BID [facility] Last Admin: 03/24/22 08:50 Dose: 5 mg Documented By: ALEJANDRA Aspirin (Aspirin Enteric Coated 81 Mg Tablet.) 81 mg PO DAILY [facility] Last Admin: 03/24/22 08:50 Dose: 81 mg Documented By: ALEJANDRA Atorvastatin Calcium (Atorvastatin Calcium 80 Mg Tablet) 80 mg PO DAILY [facility] Last Admin: 03/24/22 08:50 Dose: 80 mg Documented By: ALEJANDRA Dextrose (Dextrose 50 % 25 Gm/50 Ml Syringe) 25 gm IVPUSH Q15M PRN; Protocol PRN Reason: per Hypoglycemia Standing Ord. Glucose (Glucose Gel 15 Gm Gel..Gram.) 15 gm PO Q15M PRN; Protocol PRN Reason: per Hypoglycemia Standing Ord. Insulin Human Lispro (Insulin Lispro 100 Unit/Ml 3 Ml Vial) 0 unit SUBCUT QIDACHS [facility]; Protocol Last Admin: 03/24/22 11:45 Dose: 2 unit Documented By: ALEJANDRA Lisinopril (Lisinopril 20 Mg Tablet) 20 mg PO DAILY [facility]; Protocol Last Admin: 03/24/22 08:50 Dose: 20 mg Documented By: MARTELL-SOFJAQUELINE Metformin HCl (Metformin Hcl 1,000 Mg Tablet) 1,000 mg PO BID [facility] Metoprolol Succinate (Metoprolol Succinate Er 25 Mg Tab.Er.24h) 25 mg PO BID [facility]; Protocol Last Admin: 03/24/22 10:54 Dose: 25 mg Documented By: ALEJANDRA Ondansetron HCl (Ondansetron Hcl 4 Mg/2 Ml Vial) 4 mg IVPUSH Q8H PRN PRN Reason: Nausea and Vomiting Sodium Chloride (0.9 % Sodium Chloride Flush 3 Ml Syringe) 3 ml IVFLUSH QSHIFT [facility] Last Admin: 03/24/22 07:29 Dose: Not Given Documented By: MARTELL-HIRA Non-Admin Reason: See Note Labs CBC & Chem 7: 03/22/22 13:55 03/24/22 10:48 Labs: Laboratory Results - last 24 hr 03/23/22 03/23/22 03/24/22 16:03 19:39 07:23 Anion Gap Estim Creat Clear Calc Estimated GFR POC Glucose 197 H 156 H 125 H Random Glucose Calcium Magnesium B-Natriuretic Peptide 03/24/22 03/24/22 03/24/22 10:48 10:48 10:49 Anion Gap 12 Estim Creat Clear Calc 97.1 Estimated GFR > 60 POC Glucose 164 H Random Glucose 161 H Calcium 9.3 Magnesium 2.2 B-Natriuretic Peptide 43 Assessment and Plan (1) Atrial flutter with rapid ventricular response: Status: Acute Plan hospital d#3 61yo M with HTN, HLD, obesity, and DM2 referred to Cardiology for 2 months of exertional dyspnea and found to have atrial flutter with RVR unresponsive to IV metoprolol and IV diltiazem push # AF/RVR - start diltiazem CD 240 mg and take off drip; loaded with digoxin yesterday and metoprolol succinate increased to 25 mg bid. Apixaban for anticoagulation given [id number] 2. TTE as outpt. BARB-guided DCV as outpt to be considered. # acute HF with unknown EF - increase furosemide to bid, continue KEMAR-I + B-jairo # HTN - reduce lisinopril + metoprolol succinate # DM2, A1c 7.7 (Jan 2022) - hold MTF, give correction-dose lispro # HLD - continue atorvastatin # VTE prophylaxis: apixaban # dispo: anticipate home once rate controlled In my clinical judgment, the patient requires continued inpatient hospitalization for the following reasons: rate control, tachyarrhythmia Time Spent With Patient Time: Total time managing care of this patient today ____ minutes. Quality Stroke Does the patient have a stroke diagnosis?: No VTE Prior VTE?: No VTE Risk Level:: Medical - moderate - high VTE Device Contraindication: N/A - Device Ordered VTE Drug Contraindication: N/A - Med Ordered
--- NOTE | 2022-03-24 13:12 | PM.PNCARD ---
Subjective Subjective Date of Service: 03/24/22 Interval history: Seen examined at bedside. Continues to have atrial flutter with heart rates 90s. He was given a digoxin load yesterday. He also was started on Cardizem drip and is currently at 10 milligram/hour. Physical Exam Vital Signs: Last Vital Signs Temp 97.4 F 03/24/22 11:15 Pulse 76 03/24/22 11:15 Resp 18 03/24/22 11:15 BP 140/87 H 03/24/22 11:15 Pulse Ox 93 03/24/22 11:15 O2 Del Method 03/24/22 11:15 BMI result Body Mass Index 35.9 GENERAL APPEARANCE: in no acute distress, pleasant. NECK: no carotid bruit, positive jugular venous distention. SKIN: no suspicious lesions, warm and dry. HEART: no murmurs, regular rate and rhythm. LUNGS: clear to auscultation bilaterally. ABDOMEN: soft, nontender. EXTREMITIES: no edema. PERIPHERAL PULSES: equal. NEUROLOGIC: No gross deficits, AAO X 3 Objective Labs and Meds Result diagrams: 03/22/22 13:55 03/24/22 10:48 Lab results: Laboratory Results - last 24 hr 03/23/22 03/23/22 03/24/22 16:03 19:39 07:23 Sodium Potassium Chloride Carbon Dioxide Anion Gap BUN Creatinine Estim Creat Clear Calc Estimated GFR POC Glucose 197 H 156 H 125 H Random Glucose Calcium Magnesium B-Natriuretic Peptide 03/24/22 03/24/22 03/24/22 10:48 10:48 10:49 Sodium 139 Potassium 4.3 Chloride 103 Carbon Dioxide 28 Anion Gap 12 BUN 17 H Creatinine 1.02 Estim Creat Clear Calc 97.1 Estimated GFR > 60 POC Glucose 164 H Random Glucose 161 H Calcium 9.3 Magnesium 2.2 B-Natriuretic Peptide 43 Progress Note: A&P Assessment and plan (1) CHF (congestive heart failure): Status: Acute (2) Atrial flutter with rapid ventricular response: Status: Acute Plan 61-year-old gentleman who is presenting for atrial flutter and dyspnea. Clinically in heart failure. Increase Lasix to 40 mg IV b.i.d.. Give him to 40 mg of Cardizem and stop the Cardizem drip. Continue beta-jairo 25 mg twice a day. If after stopping the drip his heart rates are in 90s then he should be ambulated and if his heart rate stay below 120s with ambulation I think potentially can be discharged home today or tomorrow. Continue IV Lasix at 40 mg IV b.i.d.. I would favor sending him home on 40 mg p.o. b.i.d.. We will do further testing as outpatient and consider BARB cardioversion if indicated. Thank you for allowing me to participate in the care of your patient. Please feel free to contact me if you have any questions. Time Spent With Patient Time: Total time managing care of this patient today ____ minutes. Progress Note: Quality Stroke Does the patient have a stroke diagnosis?: No Procedures Date of Service Date of Service: 03/24/22
[2022-03-24 15:18] VITALS: BP 123/76; PULSE 90; RESP 16; TEMP 36.3; O2SAT 96
[2022-03-24 19:31] VITALS: BP 124/58; PULSE 104; RESP 16; TEMP 36.4; O2SAT 96
[2022-03-24] MEDS: 0.9 % Sodium Chloride Flush 3 ML SYRINGE IVFLUSH (21:16)
[2022-03-24 23:35] VITALS: BP 115/55; PULSE 55; RESP 14; TEMP 36.3; O2SAT 97
[2022-03-25 03:23] VITALS: BP 118/66; PULSE 59; RESP 18; TEMP 36.2; O2SAT 92
[2022-03-25 07:10] LABS: Anion Gap 15 (12-20); Blood Urea Nitrogen 22 mg/dL (9-16); Carbon Dioxide 26 mmol/L (22-29); Chloride 103 mmol/L (96-108); Creatinine Clr Calc Pharmacy 103.1; Estimated Glomerular Filt Rate > 60; Glucose Random 144 mg/dL (60-115); Potassium 4.5 mmol/L (3.3-5.1); Sodium 139 mmol/L (135-145)
[2022-03-25 07:15] VITALS: BP 154/60; PULSE 97; RESP 16; TEMP 36.3; O2SAT 97
[2022-03-25 07:15] LABS: B Type Natriuretic Peptide 23 pg/mL (<100)
[2022-03-25] MEDS: Insulin Lispro 100 UNIT/ML 3 ML VIAL SUBCUT (07:53)
[2022-03-25] MEDS: Aspirin Enteric Coated 81 MG TABLET.DR PO (07:54)
[2022-03-25] MEDS: Apixaban 5 MG TABLET PO (07:55)
[2022-03-25] MEDS: Atorvastatin Calcium 80 MG TABLET PO (07:55)
[2022-03-25] MEDS: 0.9 % Sodium Chloride Flush 3 ML SYRINGE IVFLUSH (07:55)
[2022-03-25 11:08] LABS: Glucose, Whole Blood 109 mg/dL (60-115)
--- NOTE | 2022-03-25 11:49 | PM.DS ---
DS: Providers Provider Date of Service: 03/25/22 Date of admission: 03/22/22 18:10 Date of discharge: 03/25/22 Primary care physician: Jeanna Harris MD Consults: 03/22/22 17:45 Consult to Cardiology Routine Consulting Provider: Asher Garsia Reason for consultation: new onset aflutter DS: Diagnosis Discharge Diagnosis (1) CHF (congestive heart failure): Status: Acute (2) Atrial flutter with rapid ventricular response: Status: Acute DS: Summary Hospital Course Hospital Course: from my admission history and physical on 03/22/22: 61yo M with HTN, NIDDM, obesity, and HLD who was [place] to Dr Lane Valadez [place] [facility] [place]CP, Dr Jeanna Harris, for a 2-month history of dyspnea on exertion.? He denies lightheadedness, palpitations, or chest pain.? In the office, he was found to have new-onset atrial flutter with rapid ventricular response in the 130s-140s. ? He was sent to the ED.? He was given 5 mg of IV metoprolol three times without response.? He was then given 10 mg of IV diltiazem, also without response.? Thus, a diltiazem drip was ordered and hospital admission was requested. 61yo M with HTN, HLD, obesity, and DM2 referred to Cardiology for 2 months of exertional dyspnea and found to have atrial flutter with RVR unresponsive to IV metoprolol and IV diltiazem push. He required diltiazem continuous infusion and oral digoxin loading. He remained in persistent atrial flutter with rate controlled. He was transitioned to oral diltiazem 240 mg daily and metoprolol succinate was increased from 25 mg daily to 25 mg bid. Apixaban for anticoagulation was started given [id number].? Cardiology was consulted. Echocardiogram will be done as outpatient next week. He was diuresed with furosemide given clinical signs of volume overloaded. He will follow up with Cardiology as an outpatient and cardioversion will likely be necessary. Time Spent with Patient Time attestation: Total time managing care of this patient today __35__ minutes. Discharge coordination time: Greater than 30 minutes Quality: Safe Use of Opioids Does Pt have an Active Cancer Diagnosis on the Problem List?: No Quality: Stroke Does the patient have a stroke diagnosis?: No Physical Exam Vital Signs: Vital Signs: Last Vital Signs Temp 97.4 F 03/25/22 07:15 Pulse 97 03/25/22 07:15 Resp 16 03/25/22 07:15 BP 154/60 H 03/25/22 07:15 Pulse Ox 97 03/25/22 07:15 O2 Del Method 03/25/22 07:15 BMI result Body Mass Index 35.9 Gen: in no acute distress HEENT: sclera anicteric, moist mucus membranes Neck: supple Lungs: clear to auscultation bilaterally Heart: regular rhythm, no murmurs Abd: soft, non-tender, non-distended, obese Ext: no edema Skin: warm/well-perfused Neuro: alert and oriented x3, no focal findings Psych: appropriate affect DS: Data Data Completed and Pending Completed studies during hospitalization [Text1]: Laboratory Results WBC 9.5 X10*3/uL (4.8-10.8) 03/22/22 13:55 RBC 5.33 X10*6/uL (4.60-5.80) 03/22/22 13:55 Hgb 14.6 g/dl (14.0-18.0) 03/22/22 13:55 Hct 43.8 % (42.0-52.0) 03/22/22 13:55 MCV 82.2 fL (80.0-98.0) 03/22/22 13:55 MCH 27.4 pg (27.0-33.0) 03/22/22 13:55 MCHC 33.3 g/dl (31.0-36.0) 03/22/22 13:55 RDW 12.7 % (11.0-16.0) 03/22/22 13:55 Plt Count 347 X10*3/uL (160-400) 03/22/22 13:55 MPV 9.1 fL (9.4-12.4) L 03/22/22 13:55 Immature Gran % (Auto) 0.3 % (0.0-0.4) 03/22/22 13:55 Neut % (Auto) 59.1 % (45-73) 03/22/22 13:55 Lymph % (Auto) 25.1 % (20-40) 03/22/22 13:55 Mcclain % (Auto) 9.8 % (2-11) 03/22/22 13:55 Eos % (Auto) 5.0 % (0-4) H 03/22/22 13:55 Baso % (Auto) 0.7 % (0-2) 03/22/22 13:55 Lymph # (Auto) 2.4 X10*3/uL (1.2-4.9) 03/22/22 13:55 Mcclain # (Auto) 0.9 X10*3/uL (0.1-1.2) 03/22/22 13:55 Eos # (Auto) 0.5 X10*3/uL (0.0-0.4) H 03/22/22 13:55 Baso # (Auto) 0.1 X10*3/uL (0.0-0.2) 03/22/22 13:55 Abs Immat Gran (auto) 0.03 X10*3/uL (0.00-0.03) 03/22/22 13:55 Absolute Neuts (auto) 5.6 x10*3/uL (2.0-8.3) 03/22/22 13:55 Absolute Nucleated RBC 0.000 X10*3/uL (0.0-0.012) 03/22/22 13:55 Nucleated RBC % (auto) 0.0 /100WBC (0.0-0.2) 03/22/22 13:55 PT 13.6 SEC (10.0-13.1) H 03/22/22 13:55 INR 1.2 (0.9-1.1) H 03/22/22 13:55 APTT 33.3 SEC (26.0-36.4) 03/22/22 13:55 D-Dimer High Sensitivty 218 NG/ML 03/22/22 17:08 Sodium 139 mmol/L (135-145) 03/25/22 06:01 Potassium 4.5 mmol/L (3.3-5.1) 03/25/22 06:01 Chloride 103 mmol/L (96-108) 03/25/22 06:01 Carbon Dioxide 26 mmol/L (22-29) 03/25/22 06:01 Anion Gap 15 (12-20) 03/25/22 06:01 BUN 22 mg/dL (9-16) H 03/25/22 06:01 Creatinine 0.96 mg/dL (0.5-1.4) 03/25/22 06:01 Estim Creat Clear Calc 103.1 03/25/22 06:01 Estimated GFR > 60 03/25/22 06:01 POC Glucose 109 mg/dL (60-115) 03/25/22 11:04 Random Glucose 144 mg/dL (60-115) H 03/25/22 06:01 Calcium 9.0 mg/dL (8.4-10.2) 03/25/22 06:01 Magnesium 2.0 mg/dL (1.6-2.6) 03/25/22 06:01 Total Bilirubin 0.5 mg/dL (0.0-1.0) 03/22/22 13:55 AST 19 U/L (5-37) 03/22/22 13:55 ALT 29 U/L (0-40) 03/22/22 13:55 Alkaline Phosphatase 60 U/L (39-117) 03/22/22 13:55 Troponin I High Sens 4.2 ng/L (<3.5-35.0) 03/22/22 13:55 B-Natriuretic Peptide 23 pg/mL (<100) 03/25/22 06:01 Total Protein 6.8 g/dL (6.5-8.0) 03/22/22 13:55 Albumin 4.1 g/dL (3.5-5.0) 03/22/22 13:55 TSH 0.68 uIU/mL (0.32-4.0) 03/22/22 13:55 COVID-19 (BHUPINDER) Negative (Negative) 03/22/22 17:07 COVID-19 Clin Com See Note 03/22/22 17:07 Impressions Chest X-Ray 03/22/22 14:40 IMPRESSION: No acute cardiopulmonary process. Discharge Plan Discharge Anticipated Discharge Date/Time: 03/25/22 11:45 Patient Disposition: Home, Self-Care Discharge Diagnosis: Atrial flutter with rapid ventricular response Congestive heart failure Referrals: Jeanna Harris MD [Primary Care Provider] - 1 Week Asher Garsia MD [Physician] - 1 Week Discharge Medications: New Eliquis 5 mg Tablet 5 mg PO BID Qty: 60 0RF metoprolol succinate 25 mg Tablet Extended Release 24 Hr 25 mg PO BID Qty: 60 0RF Protocol: Hold for SBP/HR < HOLD for SBP < : 90 HOLD for HR < : 60 Rx Instructions: increase from prior dose of 25 mg daily diltiazem HCl 240 mg Capsule,Extended Release 24hr 240 mg PO DAILY Qty: 30 0RF Protocol: Hold for SBP/HR < HOLD for SBP < : 90 HOLD for HR < : 60 furosemide 40 mg tablet 40 mg PO DAILY Qty: 30 0RF Continued metformin 1,000 mg tablet 1,000 mg PO BID Qty: 180 1RF atorvastatin 80 mg tablet 80 mg PO DAILY Qty: 90 1RF lisinopril 20 mg tablet 20 mg PO DAILY Qty: 90 1RF Discontinued metoprolol succinate 25 mg tablet extended release 24 hr 25 mg PO BEDTIME aspirin [Adult Low Dose Aspirin] 81 mg tablet,delayed release (DR/EC) 81 mg PO DAILY Discharge Orders: Discharge Order (Routine); Ordered 03/25/22 Ordered By: Juan R Mac Diet: Diabetic diet Activity on Discharge: As tolerated Stand Alone Forms: Patient Portal Discharge page Care Plan Goals: control of heart rate Health Concerns: Atrial flutter with rapid ventricular response Congestive heart failure Plan of Treatment: For rate control, increase metoprolol succinate to 25 mg TWICE daily and start diltiazem 240 mg once daily For stroke prevention, stop aspirin and start apixaban 5 mg twice daily For CHF, start furosemide 40 mg daily Follow up with [place] [facility] [place] within 1-2 weeks. Echocardiogram to be arranged this week. Please follow up with your primary care doctor within 1 week. Return to the hospital if you experience recurrent or worsening symptoms. Assessment: See Discharge Summary.
--- NOTE | 2022-03-25 11:50 | MHC.CM.PN ---
Patient has been medically cleared for dc to home today, self care.
== END 2022-03-25 12:47 | disposition home or self-care (01) | DRG 201 ==
LOC: HO.ED 17:50 → HO.EDOVER 18:16 → HO.IMC 21:59
PROVIDERS: Physician Assistant Medical; Admitting Provider Family Medicine; Emergency Provider Emergency Medicine Emergency Medical Services; PCP Internal Medicine; Visit Provider Family Medicine
DX: I48.92 Unspecified atrial flutter (principal); I11.0 Hypertensive heart disease with heart failure; I50.9 Heart failure, unspecified; E11.9 Type 2 diabetes mellitus without complications; E78.2 Mixed hyperlipidemia; E66.9 Obesity, unspecified; Z20.822 Contact with and (suspected) exposure to COVID-19; Z28.310 Unvaccinated for COVID-19; Z87.891 Personal history of nicotine dependence; Z79.01 Long term (current) use of anticoagulants; Z79.84 Long term (current) use of oral hypoglycemic drugs; Z79.899 Other long term (current) drug therapy
CPT/HCPCS: 36415; 71046; 80048; 80053; 82947; 83735; 83880; 84443; 84484; 85025; 85379; 85610; 85730; 87635; 93005; 99284; J1940

== ENCOUNTER → 2022-03-29 07:26 | Outpatient (REF) | payer BC, SELFPAY ==
--- NOTE | 2022-03-29 07:31 | CA_ITS ---
Transthoracic Echocardiogram Patient (Last, First, Middle): Hema Ramires, Gender: Male Date of : 1960 Age: 61 Procedure Date: 03/29/2022 Procedure Type: Transthoracic Echocardiogram Location: OP Height: 177.8 cm Weight: 113.4 kg BSA: 2.29 m2 Heart Rate: bpm BP: 124 / 88 mmHg Field Account Director: LINDSAY Referring MD: Asher Garsia MD Manufacturing Technician: Edi Brunner MD Symptoms: I48.92 - Unspecified atrial flutter Study Quality: Technically Difficult, contrast ECG Rhythm: Atrial flutter Conclusions: - 1. Technically difficult study due to rapid heart rate 2. LV systolic function appears depressed but with lower confidence of interpretation due to rapid heart rate with LVEF of 30-35% 3. Mild aortic regurgitation 4. No gross pericardial effusion Findings Procedure Information Contrast agent, definity, is being given per protocol without apparent complications. Left Ventricle The left ventricle was not well visualized. Normal left ventricular cavity size. There is mildly increased left ventricular wall thickness. The left ventricular systolic function is moderate to severely decreased. The visually estimated ejection fraction is between 30-35%. Diastolic function is indeterminate on the basis of available data. Right Ventricle Normal right ventricular cavity size and systolic function. Atria The left atrium is normal in size. Interatrial shunt cannot be excluded. The right atrium is normal in size. Aortic Valve There is mild calcification of the aortic valve. There is moderate thickening of the aortic valve. There is no aortic valve stenosis. There is mild aortic valve regurgitation. Mitral Valve Likely normal mitral valve structure and function. There is trace mitral valve regurgitation. There is no mitral valve stenosis. Pulmonic Valve The pulmonic valve was not well visualized. Tricuspid Valve Likely normal tricuspid valve structure and function. Tricuspid regurgitation envelope is inadequate for calculation of right ventricular systolic pressure. Normal right atrial pressure. Great Vessels The aorta was not well visualized. The pulmonary artery was not well visualized. Venous The inferior vena cava is normal in size. Pericardium/Pleural There is no evidence of pericardial effusion. Prior Study Comparison No prior study available for comparison. Measurements 2D Linear Measurements IVSd: 1.25 0.6-0.9/0.6-1.0 cm LVIDd: 4.79 3.9-5.3/4.2-5.9 cm LVIDd Index: 2.09 2.4-3.2/2.2-3.1 cm/m2 LVIDs: 3.21 2.0-3.6 cm LVPWd: 1.10 0.7-1.1 cm LA Diam: 4.50 2.7-3.8/3.0-4.0 cm LAIDs Index: 1.97 1.5-2.3 cm/m2 LV Mass: 264.26 67-162/88-224 g LV Mass Index: 115.40 43-95/49-115 g/m2 LVOT Diam: 2.20 3.0+(-)1.3 cm 2D Systolic Function EF 4C: 33.30 >55% EF 2C: 29.40 >55% EF BiP: 32.70 >55% Mitral Valve MV Pk E: 1.57 MV PK A: 0.97 MV Decel Time: 125.00 E/A: 1.60 E'Lateral: 8.27 E'Medial: 5.98 E/E' Med: 26.30 E/E' Lat: 19.00 PHT: 37.00 MVA PHT: 5.95 Decel Dundy: 12.54 Aortic Valve AoV Pk Jf: 1.67 AoV Mn Jf: 1.20 AoV VTI: 0.24 AoV Pk Grad: 11.00 Aov Mn Grad: 7.00 SHERIF Cont.VTI: 2.49 LVOT LVOT Pk Jf: 1.12 LVOT Mn Jf: 0.69 LVOT VTI: 0.16 LVOT Pk Grad: 5.00 LVOT Mn Grad: 2.00 LVOT Diam: 2.20 LVOT Area: 3.80 Diastolic Function MV Pk E: 1.57 MV Pk A: 0.97 E/A: 1.60 E'Medial: 5.98 E/E' Med: 26.30 E' Laterial: 8.27 E/E' Lat: 19.00 Right Ventricle TAPSE (mm): 17.30 TVS' Jf: 10.30 Tricuspid Valve RA Press: 3.00 Great Vessels Aorta Sinus of Valsalva: 3.30 2.0-3.[address] Ridge: 2.45 1.7-3.4 cm Ao Asc: 3.30 2.1-3.4 cm Updated in Other Vendor System with Status of Final Edi Brunner MD electronically signed on 03/29/2022 8:53:02 AM with status of Final
== END ==
LOC: HO.CARD 07:26
PROVIDERS: PCP Internal Medicine; Visit Provider Internal Medicine Cardiovascular Disease
DX: I48.92 Unspecified atrial flutter (principal)
CPT/HCPCS: 93306; Q9957

== ENCOUNTER 2022-03-29 09:34 | Observation (INO) | payer BC, SELFPAY ==
--- NOTE | ~2022-03-29 | XR_ITS ---
EXAMINATION: XR CHEST CLINICAL INFORMATION: Shortness of breath COMPARISON: None TECHNIQUE: Frontal view of the chest was obtained. FINDINGS: No significant abnormality is noted involving the heart, lungs, mediastinum, bony thorax or soft tissues. XR/XR chest 1V IMPRESSION: Unremarkable chest examination.
--- NOTE | 2022-03-29 09:42 | ECG_ITS ---
Test Reason : ARRYTHMIA/PALPITATIONS Blood Pressure : / mmHG Vent. Rate : 133 BPM Atrial Rate : 133 BPM P-R Int : 156 ms QRS Dur : 114 ms QT Int : 274 ms P-R-T Axes : 081 115 -01 degrees QTc Int : 407 ms Atrial fluuter with 2:1 conduction Incomplete right bundle branch block Left posterior fascicular block Incomplete right bundle branch block Possible Right ventricular hypertrophy Nonspecific ST abnormality Abnormal ECG When compared with ECG of 22-MAR-2022 13:54, No significant changes seen Referred By: Quin Singh Electronically Signed By:YAN CEE MD
[2022-03-29 09:46] VITALS: BMI 34.8
[2022-03-29 10:03] VITALS: BP 113/77; PULSE 131; RESP 14; TEMP 36.7; O2SAT 94
[2022-03-29 10:09] LABS: MANUAL DIFF FLAG NO
[2022-03-29 10:16] LABS: Basophils Absolute Auto 0.1 X10*3/uL (0.0-0.2); Basophils Percent Auto 0.5 % (0-2); Eosinophils Absolute Auto 0.5 X10*3/uL (0.0-0.4); Eosinophils Percent Auto 5.1 % (0-4); Hematocrit 49.4 % (42.0-52.0); Hemoglobin 16.3 g/dl (14.0-18.0); Imm Gran Abs Auto 0.05 X10*3/uL (0.00-0.03); Imm Gran Pct Auto 0.5 % (0.0-0.4); Lymphocytes Absolute Auto 2.2 X10*3/uL (1.2-4.9); Lymphocytes Percent Auto 22.5 % (20-40); Mean Corpuscular Hemoglobin 26.7 pg (27.0-33.0); Mean Platelet Volume 8.9 fL (9.4-12.4); Monocytes Absolute Auto 1.2 X10*3/uL (0.1-1.2); Monocytes Percent Auto 11.8 % (2-11); Neutrophils Absolute Auto 5.9 x10*3/uL (2.0-8.3); Neutrophils Percent Auto 59.6 % (45-73); Platelet Count 370 X10*3/uL (160-400); Red Cell Distribution Width 12.6 % (11.0-16.0); White Blood Count 9.9 X10*3/uL (4.8-10.8)
[2022-03-29 10:21] LABS: Appearance Urine Clear; Color Urine Yellow; Glucose Urine UA Negative (Negative); Leukocyte Esterase Urine Trace (Negative); Nitrite Urine Negative (Negative); PH 5.5 (5.0-9.0); UMIC TRIGGER UACC YES; Urine Blood Trace (Negative); Urine Ketones Negative (Negative); Urine Protein Negative (Neg-Trace)
[2022-03-29 10:23] LABS: Bacteria Urine None Seen (None Seen); Hyaline Casts Urine 0-2 /LPF (0-2); RBC Urine 0-2 /HPF (0-2); Squamous Epithelial Cell Urine 0-2 /HPF (0-2); WBC Urine 0-5 /HPF (0-5)
[2022-03-29 10:24] LABS: INTERNATIONAL NORM RATIO 1.5 (0.9-1.1); Prothrombin Time 17.4 SEC (10.0-13.1)
[2022-03-29 10:27] LABS: COVID-19 Test Negative (Negative); IDNOW Serial# 16C4AD1C
[2022-03-29 10:35] LABS: Alanine Aminotransferase 37 U/L (0-40); Albumin Level 4.4 g/dL (3.5-5.0); Alkaline Phosphatase 64 U/L (39-117); Anion Gap 13 (12-20); Aspartate Amino Transferase 18 U/L (5-37); B Type Natriuretic Peptide 28 pg/mL (<100); Bilirubin Total 1.3 mg/dL (0.0-1.0); Blood Urea Nitrogen 18 mg/dL (9-16); Calcium 9.7 mg/dL (8.4-10.2); Carbon Dioxide 28 mmol/L (22-29); Chloride 101 mmol/L (96-108); Creatinine Clr Calc Pharmacy 95.8; Estimated Glomerular Filt Rate > 60; Glucose Random 201 mg/dL (60-115); Potassium 4.9 mmol/L (3.3-5.1); Sodium 137 mmol/L (135-145); Total Protein 7.3 g/dL (6.5-8.0)
[2022-03-29 10:42] LABS: IDNOW Serial# 9DB6401D; Influenza A Negative (Negative); Influenza B2 Negative (Negative)
--- NOTE | 2022-03-29 10:56 | ED.ARRPALP ---
HPI - Arrhythmia/Palpitations General Chief Complaint: Arrhythmia/Palpitations Stated Complaint: Aflutter Time Seen by Provider: 03/29/22 09:42 Source: patient Mode of arrival: wheelchair History of Present Illness HPI narrative: 61-year-old male who is referred by the echo department and at that time noted that patient was in atrial flutter with RVR. Patient denies shortness of breath or dizziness and was diagnosed with atrial flutter on 03/22 and started on Eliquis at that time. Patient states that he has been taking his medication as prescribed and that he continues to drink coffee and occasionally alcohol but denies any drug use or cigarette smoking. Related Data Previous Rx's Medication Instructions Recorded atorvastatin 80 mg tablet 80 mg PO DAILY #90 tabs 12/19/21 lisinopril 20 mg tablet 20 mg PO DAILY #90 tabs 12/19/21 metformin 1,000 mg tablet 1,000 mg PO BID #180 tabs 12/19/21 apixaban 5 mg tablet (Eliquis) 5 mg PO BID #60 tabs 03/25/22 diltiazem HCl 240 mg 240 mg PO DAILY #30 caps 03/25/22 capsule,extended release 24 hr furosemide 40 mg tablet 40 mg PO DAILY #30 tabs 03/25/22 metoprolol succinate 25 mg 25 mg PO BID #60 tabs 03/25/22 tablet,extended release 24 hr Allergies Allergy/AdvReac Type Severity Reaction Status Date / Time No Known Allergies Allergy Verified 03/22/22 12:52 Review of Systems Review of Systems: Pertinent positives and negatives as stated in HPI. [facility] Past Medical History Source: nursing notes reviewed Medical History COVID-19 vaccination refused Depression Diabetes mellitus with hyperglycemia, without long-term current use of insulin Essential hypertension History of COVID-19 Incomplete right bundle branch block Lower abdominal pain Mixed dyslipidemia Obesity Sinus tachycardia Tubular adenoma of colon Urethral stricture Surgical History No pertinent past surgical history Family History Family History Father Diabetes mellitus Smoker High cholesterol Mother Cirrhosis Brother No problems noted. Sister No problems noted. Son No problems noted. Daughter No problems noted. Social History Social History Household Members: Spouse and Children Housing: Apartment Do you presently have visiting nurse or other home services: No Unable to assess alcohol history related to: Unknown Alcohol intake: current Alcohol intake frequency: a few times a week Patient Tobacco Use Status: Former Tobacco user Tobacco use type: Cigarette Years Smoked: 5 yrs Smoked in Last 30 Days: No e-Cigarette/Vaping Use: Never Used Second Hand Smoke Exposure: No Use of substances other than those prescribed or required for medical reasons: No Advance Directives: Yes Advance Directives on File: Yes Advance Directives Date on File: 03/27/22 service: No Current occupational status: employed 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 GENERAL: Well developed, well nourished, in no acute distress. HEAD: Normocephalic/atraumatic EYES: PERRLA, EOMI EARS: Ext canals without abnormality OROPHARYNX: no oral lesions noted, posterior pharynx clear LUNGS: Normal breath sounds. No adventitious sounds or accessory muscle use. SpO2<94> CARDIOVASCULAR: Tachycardic rate and rhythm without noted murmurs, no JVD or lower extremity edema. ABDOMEN: Soft, non-tender, non-distended with bowel sounds. MUSCULOSKELETAL: No tenderness, deformities, or effusions noted on gross inspection. EXTREMITIES: No cyanosis, clubbing or edema. SKIN: Inspection of the skin reveals no rashes NEUROLOGIC: Alert and oriented x 4. Strength and sensation to light touch were grossly intact x 4. Medical Decision Making Medical Decision Making MDM Narrative: 61-year-old male who arrives here in the ED with atrial fibrillation in RVR and hemodynamically stable and appears to be asymptomatic. Patient took his medications this morning and his RVR was noted during an echocardiogram procedure in the cardiology department. 1154: After reviewing all investigations in speaking with consultants I have noted that patient does not have evidence of infection, neither does he have evidence of electrolyte derangements, renal function is intact, and no evidence to suggest CHF at this time. Viral testing is negative thin patient received initial digoxin load of 0.25 mg IV. This was a recommendation by Cardiology. I did discuss extensively with the patient the importance of admission as he had originally expressed interest in being discharged. He has agreed for admission and is otherwise continuing to be observed after receiving digoxin until hospitalist sees the patient. Differential Diagnosis Differential Diagnoses: The differential diagnosis associated with the presentation includes I will rule out infection, anemia, electrolyte abnormalities, viral infection. 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 Brunner, cardiology, who recommends digoxin and/or Lopressor for rate control and admission for cardioversion under BARB tomorrow. 1144: I discussed this with the inpatient hospitalist who accepts admission Lab Data MDM Lab Attestation statement: I reviewed the patient's lab results. Please see above for discussion. Result Diagrams: 03/29/22 09:59 03/29/22 09:59 Labs: Lab Results 03/29/22 03/29/22 03/29/22 Range/Units 09:59 09:59 09:59 WBC 9.9 (4.8-10.8) X10*3/uL RBC 6.10 H (4.60-5.80) X10*6/uL Hgb 16.3 (14.0-18.0) g/dl Hct 49.4 (42.0-52.0) % MCV 81.0 (80.0-98.0) fL MCH 26.7 L (27.0-33.0) pg MCHC 33.0 (31.0-36.0) g/dl RDW 12.6 (11.0-16.0) % Plt Count 370 (160-400) X10*3/uL MPV 8.9 L (9.4-12.4) fL Immature Gran % (Auto) 0.5 H (0.0-0.4) % Neut % (Auto) 59.6 (45-73) % Lymph % (Auto) 22.5 (20-40) % [place] % (Auto) 11.8 H (2-11) % Eos % (Auto) 5.1 H (0-4) % Baso % (Auto) 0.5 (0-2) % Lymph # (Auto) 2.2 (1.2-4.9) X10*3/uL [place] # (Auto) 1.2 (0.1-1.2) X10*3/uL Eos # (Auto) 0.5 H (0.0-0.4) X10*3/uL Baso # (Auto) 0.1 (0.0-0.2) X10*3/uL Abs Immat Gran (auto) 0.05 H (0.00-0.03) X10*3/uL Absolute Neuts (auto) 5.9 (2.0-8.3) x10*3/uL Absolute Nucleated RBC 0.000 (0.0-0.012) X10*3/uL Nucleated RBC % (auto) 0.0 (0.0-0.2) /100WBC PT 17.4 H (10.0-13.1) SEC INR 1.5 H (0.9-1.1) Sodium 137 (135-145) mmol/L Potassium 4.9 (3.3-5.1) mmol/L Chloride 101 (96-108) mmol/L Carbon Dioxide 28 (22-29) mmol/L Anion Gap 13 (12-20) BUN 18 H (9-16) mg/dL Creatinine 1.05 (0.5-1.4) mg/dL Estim Creat Clear Calc 95.8 Estimated GFR > 60 Random Glucose 201 H (60-115) mg/dL Calcium 9.7 D (8.4-10.2) mg/dL Total Bilirubin 1.3 H (0.0-1.0) mg/dL AST 18 (5-37) U/L ALT 37 (0-40) U/L Alkaline Phosphatase 64 (39-117) U/L Troponin I High Sens (<3.5-35.0) ng/L B-Natriuretic Peptide (<100) pg/mL Total Protein 7.3 (6.5-8.0) g/dL Albumin 4.4 (3.5-5.0) g/dL Urine Color Urine Appearance Urine pH (5.0-9.0) Ur Specific [place] (1.005-1.025) Urine Protein (Neg-Trace) mg/dL Urine Glucose (UA) (Negative) mg/dL Urine Ketones (Negative) mg/dL Urine Blood (Negative) Urine Nitrite (Negative) Ur Leukocyte Esterase (Negative) Urine RBC (0-2) /HPF Urine WBC (0-5) /HPF Ur Squamous Epith Cells (0-2) /HPF Urine Bacteria (None Seen) Hyaline Casts (0-2) /LPF COVID-19 (BHUPINDER) (Negative) COVID-19 Clin Com Influenza Type A (SANDRA) (Negative) Influenza Type B (SANDRA) (Negative) Influenza A & B Note 03/29/22 03/29/22 03/29/22 Range/Units 09:59 09:59 09:59 WBC (4.8-10.8) X10*3/uL RBC (4.60-5.80) X10*6/uL Hgb (14.0-18.0) g/dl Hct (42.0-52.0) % MCV (80.0-98.0) fL MCH (27.0-33.0) pg MCHC (31.0-36.0) g/dl RDW (11.0-16.0) % Plt Count (160-400) X10*3/uL MPV (9.4-12.4) fL Immature Gran % (Auto) (0.0-0.4) % Neut % (Auto) (45-73) % Lymph % (Auto) (20-40) % [place] % (Auto) (2-11) % Eos % (Auto) (0-4) % Baso % (Auto) (0-2) % Lymph # (Auto) (1.2-4.9) X10*3/uL [place] # (Auto) (0.1-1.2) X10*3/uL Eos # (Auto) (0.0-0.4) X10*3/uL Baso # (Auto) (0.0-0.2) X10*3/uL Abs Immat Gran (auto) (0.00-0.03) X10*3/uL Absolute Neuts (auto) (2.0-8.3) x10*3/uL Absolute Nucleated RBC (0.0-0.012) X10*3/uL Nucleated RBC % (auto) (0.0-0.2) /100WBC PT (10.0-13.1) SEC INR (0.9-1.1) Sodium (135-145) mmol/L Potassium (3.3-5.1) mmol/L Chloride (96-108) mmol/L Carbon Dioxide (22-29) mmol/L Anion Gap (12-20) BUN (9-16) mg/dL Creatinine (0.5-1.4) mg/dL Estim Creat Clear Calc Estimated GFR Random Glucose (60-115) mg/dL Calcium (8.4-10.2) mg/dL Total Bilirubin (0.0-1.0) mg/dL AST (5-37) U/L ALT (0-40) U/L Alkaline Phosphatase (39-117) U/L Troponin I High Sens 4.3 (<3.5-35.0) ng/L B-Natriuretic Peptide 28 (<100) pg/mL Total Protein (6.5-8.0) g/dL Albumin (3.5-5.0) g/dL Urine Color Urine Appearance Urine pH (5.0-9.0) Ur Specific [place] (1.005-1.025) Urine Protein (Neg-Trace) mg/dL Urine Glucose (UA) (Negative) mg/dL Urine Ketones (Negative) mg/dL Urine Blood (Negative) Urine Nitrite (Negative) Ur Leukocyte Esterase (Negative) Urine RBC (0-2) /HPF Urine WBC (0-5) /HPF Ur Squamous Epith Cells (0-2) /HPF Urine Bacteria (None Seen) Hyaline Casts (0-2) /LPF COVID-19 (BHUPINDER) (Negative) COVID-19 Clin Com Influenza Type A (SANDRA) Negative (Negative) Influenza Type B (SANDRA) Negative (Negative) Influenza A & B Note See Note 03/29/22 03/29/22 Range/Units 09:59 10:11 WBC (4.8-10.8) X10*3/uL RBC (4.60-5.80) X10*6/uL Hgb (14.0-18.0) g/dl Hct (42.0-52.0) % MCV (80.0-98.0) fL MCH (27.0-33.0) pg MCHC (31.0-36.0) g/dl RDW (11.0-16.0) % Plt Count (160-400) X10*3/uL MPV (9.4-12.4) fL Immature Gran % (Auto) (0.0-0.4) % Neut % (Auto) (45-73) % Lymph % (Auto) (20-40) % [place] % (Auto) (2-11) % Eos % (Auto) (0-4) % Baso % (Auto) (0-2) % Lymph # (Auto) (1.2-4.9) X10*3/uL [place] # (Auto) (0.1-1.2) X10*3/uL Eos # (Auto) (0.0-0.4) X10*3/uL Baso # (Auto) (0.0-0.2) X10*3/uL Abs Immat Gran (auto) (0.00-0.03) X10*3/uL Absolute Neuts (auto) (2.0-8.3) x10*3/uL Absolute Nucleated RBC (0.0-0.012) X10*3/uL Nucleated RBC % (auto) (0.0-0.2) /100WBC PT (10.0-13.1) SEC INR (0.9-1.1) Sodium (135-145) mmol/L Potassium (3.3-5.1) mmol/L Chloride (96-108) mmol/L Carbon Dioxide (22-29) mmol/L Anion Gap (12-20) BUN (9-16) mg/dL Creatinine (0.5-1.4) mg/dL Estim Creat Clear Calc Estimated GFR Random Glucose (60-115) mg/dL Calcium (8.4-10.2) mg/dL Total Bilirubin (0.0-1.0) mg/dL AST (5-37) U/L ALT (0-40) U/L Alkaline Phosphatase (39-117) U/L Troponin I High Sens (<3.5-35.0) ng/L B-Natriuretic Peptide (<100) pg/mL Total Protein (6.5-8.0) g/dL Albumin (3.5-5.0) g/dL Urine Color Yellow Urine Appearance Clear Urine pH 5.5 (5.0-9.0) Ur Specific [place] 1.010 (1.005-1.025) Urine Protein Negative (Neg-Trace) mg/dL Urine Glucose (UA) Negative (Negative) mg/dL Urine Ketones Negative (Negative) mg/dL Urine Blood Trace H (Negative) Urine Nitrite Negative (Negative) Ur Leukocyte Esterase Trace H (Negative) Urine RBC 0-2 (0-2) /HPF Urine WBC 0-5 (0-5) /HPF Ur Squamous Epith Cells 0-2 (0-2) /HPF Urine Bacteria None Seen (None Seen) Hyaline Casts 0-2 (0-2) /LPF COVID-19 (BHUPINDER) Negative (Negative) COVID-19 Clin Com See Note Influenza Type A (SANDRA) (Negative) Influenza Type B (SANDRA) (Negative) Influenza A & B Note Independent Interpretation I performed an independent interpretation of an: EKG Interpretation: Atrial flutter, HR-133, no STEMI, EKG appears similar to prior on 03/22, QTC is within normal limits, QRS is mildly prolonged at 114. Radiology Impression Radiologist Impression: My interpretation is in agreement with radiologist impression of imaging study. External Record Review External record reviewed: Inpatient record, Office record, Outpatient record and Prior outpatient labs Prescription Management I considered prescription management with: Other Rate control medication Chronic Conditions Patient?s care impacted by: Diabetes and Other Atrial flutter Critical Care Time Critical Care Time Critical Care Time: Yes Total Critical Care Time: 60 Attestation: I personally attest to this time spent taking care of the patient. Discharge Plan Discharge Clinical Impression: Atrial flutter with rapid ventricular response, Chronic anticoagulation Patient Disposition: Admitted As Inpatient Prescriptions: No Action metformin 1,000 mg tablet 1,000 mg PO BID Qty: 180 1RF atorvastatin 80 mg tablet 80 mg PO DAILY Qty: 90 1RF lisinopril 20 mg tablet 20 mg PO DAILY Qty: 90 1RF Eliquis 5 mg Tablet 5 mg PO BID Qty: 60 0RF metoprolol succinate 25 mg Tablet Extended Release 24 Hr 25 mg PO BID Qty: 60 0RF Protocol: Hold for SBP/HR < HOLD for SBP < : 90 HOLD for HR < : 60 Rx Instructions: increase from prior dose of 25 mg daily diltiazem HCl 240 mg Capsule,Extended Release 24hr 240 mg PO DAILY Qty: 30 0RF Protocol: Hold for SBP/HR < HOLD for SBP < : 90 HOLD for HR < : 60 furosemide 40 mg tablet 40 mg PO DAILY Qty: 30 0RF
[2022-03-29 10:59] LABS: Troponin-I High Sensitivity 4.3 ng/L (<3.5-35.0)
[2022-03-29 11:51] VITALS: BP 104/70; PULSE 129; RESP 16; O2SAT 96
[2022-03-29] MEDS: Digoxin 0.5 MG/2 ML AMPUL 0.25 MG IVPUSH ×3 (12:12→19:18)
--- NOTE | 2022-03-29 12:35 | PC.NURSE ---
pt requesting a cheeseburger at this time. t/w educated pt on heart healthy foods.
--- NOTE | 2022-03-29 13:04 | P.HPHOSP_ITS ---
History of Present Illness Date of Service: 03/29/22 Chief Complaint: rapid a fib while getting outpatient echo The patient is a 61 year old male with a PMH of recently diagnosed A. Fib who presents to the ED after being directed from the outpatient echo lab where he was completing in a echocardiogram. The patients HR was in the 120-140s range and hence he was referred to the ED. Upon arrival to the ED, a. fib with RVR was confirmed. The ED provider discussed his case with cardiology who recommended digoxin loading +/- IV/PO metoprolol to control his HR (to avoid cardizem if possible). He has been given IV dig with his rates still in the 120s. In regards to his symptoms, the patient denies palpitations. He reports chronic SOB and orthopnea which have not acutely changed. He denies chest pain. Of note, the patient does report drinking 50-60 oz of coffee daily. Review of Systems Review of Systems: negative except HPI [facility] Medical History COVID-19 vaccination refused Depression Diabetes mellitus with hyperglycemia, without long-term current use of insulin Essential hypertension History of COVID-19 Incomplete right bundle branch block Lower abdominal pain Mixed dyslipidemia Obesity Sinus tachycardia Tubular adenoma of colon Urethral stricture Family History Father Diabetes mellitus Smoker High cholesterol Mother Cirrhosis Brother No problems noted. Sister No problems noted. Son No problems noted. Daughter No problems noted. Surgical History No pertinent past surgical history Social History Household Members: Spouse and Children Housing: Apartment Do you presently have visiting nurse or other home services: No Unable to assess alcohol history related to: Unknown Alcohol intake: current Alcohol intake frequency: a few times a week Patient Tobacco Use Status: Former Tobacco user Tobacco use type: Cigarette Years Smoked: 5 yrs Smoked in Last 30 Days: No e-Cigarette/Vaping Use: Never Used Second Hand Smoke Exposure: No Use of substances other than those prescribed or required for medical reasons: No Advance Directives: Yes Advance Directives on File: Yes Advance Directives Date on File: 03/27/22 service: No Current occupational status: employed 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 Current occupational exposures/hazards: Yes Cognitive needs: No Hearing needs: No Vision needs: Yes Meds Allergies Allergy/AdvReac Type Severity Reaction Status Date / Time No Known Allergies Allergy Verified 03/22/22 12:52 Active Medications: Current Medications Acetaminophen (Acetaminophen 325 Mg Tablet) 650 mg PO Q6H PRN PRN Reason: Pain, Mild (Pain Scale 1-3) Ondansetron HCl (Ondansetron Hcl 4 Mg/2 Ml Vial) 4 mg IVPUSH Q8H PRN PRN Reason: Nausea and Vomiting Pharmacy Consult (Consult Rx Perform Med Rec) 1 each MISCELLANE ONCE PRN PRN Reason: Consult order Sodium Chloride (0.9 % Sodium Chloride Flush 3 Ml Syringe) 3 ml IVFLUSH QSHIFT UMU Physical Exam Vital Signs and Narrative: Vital Signs: Last Vital Signs Temp 98.0 F 03/29/22 10:03 Pulse 129 H 03/29/22 11:51 Resp 16 03/29/22 11:51 BP 104/70 03/29/22 11:51 Pulse Ox 96 03/29/22 11:51 O2 Del Method 03/29/22 10:03 BMI result Body Mass Index 34.8 Const: Other: Constitutional - Awake and Alert, No apparent distress Eyes - PERRLA, EOMI Cardiovascular - S1S2, IRR (rates in the 120 at rest), No edema Respiratory - Normal lung expansion, Normal respiratory effort, No respiratory distress, CTA bilaterally Gastrointestinal - NT / ND; +BS; No rebound or guarding - No CVA tenderness Extremities - no calf tenderness bilaterally, no swelling Musculoskeletal - Normal inspection, normal ROM Skin - Warm/Dry Neurological - Alert & oriented x3, No focal deficit Psychological - Appropriate affect Results Labs CBC and Chem 7: 03/29/22 09:59 03/29/22 09:59 Labs: Laboratory Results - last 24 hr 03/29/22 03/29/22 03/29/22 09:59 09:59 09:59 MCV 81.0 MCH 26.7 L MCHC 33.0 RDW 12.6 Plt Count 370 MPV 8.9 L Immature Gran % (Auto) 0.5 H Neut % (Auto) 59.6 Lymph % (Auto) 22.5 [place] % (Auto) 11.8 H Eos % (Auto) 5.1 H Baso % (Auto) 0.5 Lymph # (Auto) 2.2 [place] # (Auto) 1.2 Eos # (Auto) 0.5 H Baso # (Auto) 0.1 Abs Immat Gran (auto) 0.05 H Absolute Neuts (auto) 5.9 Absolute Nucleated RBC 0.000 Nucleated RBC % (auto) 0.0 PT 17.4 H INR 1.5 H Anion Gap 13 Estim Creat Clear Calc 95.8 Estimated GFR > 60 Random Glucose 201 H Calcium 9.7 D Total Bilirubin 1.3 H AST 18 ALT 37 Alkaline Phosphatase 64 Troponin I High Sens B-Natriuretic Peptide Total Protein 7.3 Albumin 4.4 Urine Color Urine Appearance Urine pH Ur Specific [place] Urine Protein Urine Glucose (UA) Urine Ketones Urine Blood Urine Nitrite Ur Leukocyte Esterase Urine RBC Urine WBC Ur Squamous Epith Cells Urine Bacteria Hyaline Casts COVID-19 (BHUPINDER) COVID-19 Clin Com Influenza Type A (SANDRA) Influenza Type B (SANDRA) Influenza A & B Note 03/29/22 03/29/22 03/29/22 09:59 09:59 09:59 MCV MCH MCHC RDW Plt Count MPV Immature Gran % (Auto) Neut % (Auto) Lymph % (Auto) [place] % (Auto) Eos % (Auto) Baso % (Auto) Lymph # (Auto) [place] # (Auto) Eos # (Auto) Baso # (Auto) Abs Immat Gran (auto) Absolute Neuts (auto) Absolute Nucleated RBC Nucleated RBC % (auto) PT INR Anion Gap Estim Creat Clear Calc Estimated GFR Random Glucose Calcium Total Bilirubin AST ALT Alkaline Phosphatase Troponin I High Sens 4.3 B-Natriuretic Peptide 28 Total Protein Albumin Urine Color Urine Appearance Urine pH Ur Specific [place] Urine Protein Urine Glucose (UA) Urine Ketones Urine Blood Urine Nitrite Ur Leukocyte Esterase Urine RBC Urine WBC Ur Squamous Epith Cells Urine Bacteria Hyaline Casts COVID-19 (BHUPINDER) COVID-19 Clin Com Influenza Type A (SANDRA) Negative Influenza Type B (SANDRA) Negative Influenza A & B Note See Note 03/29/22 03/29/22 09:59 10:11 MCV MCH MCHC RDW Plt Count MPV Immature Gran % (Auto) Neut % (Auto) Lymph % (Auto) [place] % (Auto) Eos % (Auto) Baso % (Auto) Lymph # (Auto) [place] # (Auto) Eos # (Auto) Baso # (Auto) Abs Immat Gran (auto) Absolute Neuts (auto) Absolute Nucleated RBC Nucleated RBC % (auto) PT INR Anion Gap Estim Creat Clear Calc Estimated GFR Random Glucose Calcium Total Bilirubin AST ALT Alkaline Phosphatase Troponin I High Sens B-Natriuretic Peptide Total Protein Albumin Urine Color Yellow Urine Appearance Clear Urine pH 5.5 Ur Specific [place] 1.010 Urine Protein Negative Urine Glucose (UA) Negative Urine Ketones Negative Urine Blood Trace H Urine Nitrite Negative Ur Leukocyte Esterase Trace H Urine RBC 0-2 Urine WBC 0-5 Ur Squamous Epith Cells 0-2 Urine Bacteria None Seen Hyaline Casts 0-2 COVID-19 (BHUPINDER) Negative COVID-19 Clin Com See Note Influenza Type A (SANDRA) Influenza Type B (SANDRA) Influenza A & B Note Imaging Radiologist's Impressions: Impressions Chest X-Ray 03/29/22 10:20 IMPRESSION: Unremarkable chest examination. Assessment and Plan (1) Atrial flutter with rapid ventricular response: Status: Acute Plan 61 yo M with a PMH of HTN, HLD, DM, Obesity who presents to the ED for rapid a. flutter which was noted while at the echo lab. His rates remain difficult to control and he will be admitted for further treatment. 1. Persistent A. Fib/a. flutter with RVR case d/w cardiology -- pt likely to require BARB cardioversion if unable to control pharmacologically given 0.25mg dig IV in the ED, will give another 0.25mg IV now. 2 more doses of IV dig q6 hours starting this evening for dig load BP on the softer side, but once improved, can add beta blockers (IV or PO) Continue eliquis Cardiology consulted -- d/w Dr. Myesha DAVID after midnight 2. History of HTN BP on the softer side, likely related to rapid a. fib hold baseline meds for now 3. DM hold orals, given sliding scale 4. HLD statin Med rec pending, will continue baseline meds as appropriate once completed. Full Code DVT pptx, Javier Time Spent With Patient Time: Total time managing care of this patient today ____ minutes. Quality Stroke Does the patient have a stroke diagnosis?: No VTE Prior VTE?: No VTE Risk Level:: Medical - moderate - high VTE Device Contraindication: Treatment Not Indicated VTE Drug Contraindication: N/A - Med Ordered
--- NOTE | 2022-03-29 13:16 | PHA.MEDREC ---
Pharmacy Consult ? Medication Reconciliation Pharmacy has completed the medication reconciliation. Patient confirmed medications. Reports he is taking them even though there is no claim history for atorvastatin, lisinopril or metformin. Delaney Hopson, KymD
[2022-03-29 13:37] VITALS: BP 100/78; PULSE 116; RESP 14; O2SAT 97
[2022-03-29 13:38] LABS: Glucose, Whole Blood 173 mg/dL (60-115)
[2022-03-29] MEDS: Metoprolol Tartrate 12.5 MG HALFTAB PO ×2 (17:18→21:34)
[2022-03-29] MEDS: Insulin Lispro 100 UNIT/ML 3 ML VIAL SUBCUT ×2 (17:18→21:34)
[2022-03-29 17:29] VITALS: BP 114/84; PULSE 134; RESP 16; O2SAT 98
[2022-03-29 17:37] LABS: Glucose, Whole Blood 221 mg/dL (60-115)
--- NOTE | 2022-03-29 19:30 | PC.NURSE ---
Pt resting comfortably. No needs expressed at this time.
--- NOTE | 2022-03-29 19:44 | PC.NURSE ---
Pt resting comfortably, no needs expressed.
[2022-03-29 20:52] LABS: Glucose, Whole Blood 205 mg/dL (60-115)
[2022-03-29] MEDS: Apixaban 5 MG TABLET PO (21:34)
--- NOTE | 2022-03-29 21:43 | PC.NURSE ---
Pt resting quietly, pt requesting medication for sleep aid. MD notified.
--- NOTE | 2022-03-29 22:09 | MHC.EDTECH ---
pt had to be reminded to be mindful of others with his phone loud watching the game. pt ambulated to the BR, i gave him a pitcher of water he pour the water into his old water bottle and gave back the pitcher, ok thanks was said, he back in bed relaxing
[2022-03-29] MEDS: traZODone HCL 50 MG TABLET PO (22:22)
--- NOTE | 2022-03-29 23:15 | PC.NURSE ---
Pt watching TV resting quietly, no needs expressed.
[2022-03-30] VITALS (15 sets, daily range): BP systolic 106–135; BP diastolic 72–94; PULSE 85–136; RESP 14–18; TEMP 35.7–37; O2SAT 93–98; BMI 34.8
--- NOTE | 2022-03-30 | ECG_ITS ---
Test Reason : rythm check Blood Pressure : / mmHG Vent. Rate : 124 BPM Atrial Rate : 137 BPM P-R Int : 168 ms QRS Dur : 114 ms QT Int : 280 ms P-R-T Axes : 078 118 -29 degrees QTc Int : 402 ms Atrial flutter with 2:1 conduction Incomplete right bundle branch block Left posterior fascicular block Nonspecific T wave abnormality Abnormal ECG When compared with ECG of 29-MAR-2022 09:56, No significant changes seen Referred By: Dennise Cruz Electronically Signed By:YAN CEE MD
[2022-03-30] MEDS: Digoxin 0.5 MG/2 ML AMPUL 0.25 MG IVPUSH (01:32)
--- NOTE | 2022-03-30 02:19 | PC.NURSE ---
Pt sleeping respiration regular.
--- NOTE | 2022-03-30 04:11 | PC.NURSE ---
Pt sleeping respirations regular.
--- NOTE | 2022-03-30 05:53 | PC.NURSE ---
Pt sleeping respirations regular. Pt in no apparent distress.
--- NOTE | 2022-03-30 05:57 | MHC.EDTECH ---
pt is resting quietly , pt is now NPO, he is aware
--- NOTE | 2022-03-30 06:31 | PC.NURSE ---
Pt asked to lay in bed, pt refused. Pt states they are going to walk to the bathroom, this RN recommended a bedside commode since PT HR is elevated. PT refused bedside commode and stated they have to walk to the bathroom.
--- NOTE | 2022-03-30 06:37 | PC.NURSE ---
Pt sitting on the edge of bed. Pt asked to lay in bed because HR is high pt refused.
[2022-03-30] MEDS: Metoprolol Tartrate 5 MG/5 ML VIAL 2.5 MG IVPUSH (06:52)
[2022-03-30 07:11] LABS: Glucose, Whole Blood 156 mg/dL (60-115)
[2022-03-30] MEDS: Atorvastatin Calcium 80 MG TABLET PO (08:31)
[2022-03-30] MEDS: Metoprolol Tartrate 12.5 MG HALFTAB PO ×3 (08:31→22:16)
[2022-03-30] MEDS: Apixaban 5 MG TABLET PO ×2 (08:31→22:16)
[2022-03-30] MEDS: 0.9 % Sodium Chloride Flush 3 ML SYRINGE IVFLUSH ×3 (08:36→22:18)
--- NOTE | 2022-03-30 10:17 | P.CONCA_ITS ---
History of Present Illness History of Present Illness Date of Service: 03/30/22 Requesting physician: Dennise Cruz Consult reason: other (Persistent atrial flutter with rapid ventricular response, cardiomyopathy) Chief complaint: tachycardia, rapid a fib Narrative: I was consulted to see Hema in cardiology consultation today due to persistent atrial flutter with 2 is to 1 conduction. Patient was diagnosed with atrial flutter on routine clinical exam during his office visit with his primary care and was subsequently because of mild shortness of breath came to the hospital couple weeks ago. Was seen by Dr. Garsia and was started on oral anticoagulation therapy which she only started last week. He has been on metoprolol. Came for an echocardiogram yesterday very was noted to have reduced LV systolic function due to persistent atrial flutter was referred to the emergency room. He does complain of increased shortness of breath but he is trying to minimize it. Denies any orthopnea, PND. Denies any palpitation, fatigue, lightheadedness, syncope. Denies any exertional chest pain. Denies any clear leg swelling. Has been taking his oral anticoagulation for white week or so. Yesterday did receive a total loading dose of 1 mg of digoxin and has received IV metoprolol but this is limited due to lower blood pressure. Patient remains in persistent tachycardia at this point in time. Review of Systems Constitutional: Constitutional: Reports no additional constitutional complaints Eyes: Eyes: Reports no additional eye complaints Cardiovascular: Cardiovascular: Denies Abdominal Distension, Denies chest p ain, Denies rapid heart rate, Denies leg edema, Denies lightheadedness, Denies Loss of Consciousness, Denies palpitations, Reports dyspnea on exertion and Denies orthopnea Respiratory: Respiratory: Reports no additional respiratory complaints and Reports dyspnea on exertion Gastrointestinal: Gastrointestinal: Reports no additional gastrointestinal complaints Genitourinary: Genitourinary: Reports no additional male genitourinary compla ints Musculoskeletal: Musculoskeletal: Reports no additional musculoskeletal complaints Integumentary/Breasts: Skin/Breast: Reports system reviewed and no additional complaints, except as docu Neurologic: Reports system reviewed and no additional complaints, except as documented Psychiatric: Psychiatric: Reports no additional psychiatric complaints Endocrine: Endocrine: Reports no additional endocrine complaints and Denies palpitations Hematologic/Lymphatic: Hematologic/Lymphatic: Reports no additional hematologic/lymphatic complaints Allergic/Immunologic: Allergic/Immunologic: Reports no additional allergic/immunologic complaints PMFSH Past Medical History Medical History (Updated 03/30/22 @ 10:24 by Edi Brunner MD) COVID-19 vaccination refused Depression Diabetes mellitus with hyperglycemia, without long-term current use of insulin Essential hypertension History of COVID-19 Incomplete right bundle branch block Lower abdominal pain Mixed dyslipidemia Obesity Sinus tachycardia Tubular adenoma of colon Urethral stricture Family History Family History Father Diabetes mellitus Smoker High cholesterol Mother Cirrhosis Brother No problems noted. Sister No problems noted. Son No problems noted. Daughter No problems noted. Surgical History Surgical History No pertinent past surgical history Social History Social History Household Members: Spouse and Children Housing: Apartment Do you presently have visiting nurse or other home services: No Unable to assess alcohol history related to: Unknown Alcohol intake: current Alcohol intake frequency: a few times a week Patient Tobacco Use Status: Former Tobacco user Tobacco use type: Cigarette Years Smoked: 5 yrs Smoked in Last 30 Days: No e-Cigarette/Vaping Use: Never Used Second Hand Smoke Exposure: No Use of substances other than those prescribed or required for medical reasons: No Advance Directives: Yes Advance Directives on File: Yes Advance Directives Date on File: 03/27/22 service: No Current occupational status: employed 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 Current occupational exposures/hazards: Yes Cognitive needs: No Hearing needs: No Vision needs: Yes Meds Allergies Allergy/AdvReac Type Severity Reaction Status Date / Time No Known Allergies Allergy Verified 03/22/22 12:52 Active Medications: Current Medications Acetaminophen (Acetaminophen 325 Mg Tablet) 650 mg PO Q6H PRN PRN Reason: Pain, Mild (Pain Scale 1-3) Apixaban (Apixaban 5 Mg Tablet) 5 mg PO Q12H [facility] Last Admin: 03/30/22 08:31 Dose: 5 mg Atorvastatin Calcium (Atorvastatin Calcium 80 Mg Tablet) 80 mg PO DAILY [facility] Last Admin: 03/30/22 08:31 Dose: 80 mg Insulin Human Lispro (Insulin Lispro 100 Unit/Ml 3 Ml Vial) 0 unit SUBCUT QIDACHS [facility]; Protocol Last Admin: 03/30/22 08:15 Dose: Not Given Metoprolol Tartrate (Metoprolol Tartrate 12.5 Mg Halftab) 12.5 mg PO TID [facility]; Protocol Last Admin: 03/30/22 08:31 Dose: 12.5 mg Ondansetron HCl (Ondansetron Hcl 4 Mg/2 Ml Vial) 4 mg IVPUSH Q8H PRN PRN Reason: Nausea and Vomiting Ondansetron HCl (Ondansetron Hcl 4 Mg/2 Ml Vial) 4 mg IVPUSH ONCE PRN PRN Reason: Nausea and Vomiting Pharmacy Consult (Consult Rx Perform Med Rec) 1 each MISCELLANE ONCE PRN PRN Reason: Consult order Sodium Chloride (0.9 % Sodium Chloride Flush 3 Ml Syringe) 3 ml IVFLUSH QSHIFT [facility] Last Admin: 03/30/22 08:36 Dose: 3 ml Physical Exam Vital Signs: Vital Signs: Last Vital Signs Temp 96.2 F L 03/30/22 07:49 Pulse 130 H 03/30/22 10:07 Resp 15 03/30/22 10:07 BP 112/85 03/30/22 10:07 Pulse Ox 96 03/30/22 10:07 O2 Del Method 03/30/22 10:07 BMI result Body Mass Index 34.8 Const: General: cooperative, comfortable, no acute distress, alert and awake Nutritional Appearance: obese Orientation/consciousness: patient oriented x3 Limitations: no limitations HEENT: Head: Yes normocephalic and Yes atraumatic Neck: Neck: Yes trachea midline, Yes supple and Yes no JVD Resp: Effort & Inspection: normal respiratory effort Auscultation: clear to auscultation bilaterally Cardio: Jugular venous distension: no JVD Rate: tachycardic Rhythm: regular rhythm Heart sounds: S1 normal heart sound present, S2 normal heart sound present, no click, no gallops, no murmurs and no rubs GI: Auscultation: normal bowel sounds Skin: General skin exam: no rashes or lesions noted Neuro: General: patient oriented x3 and no focal motor deficits Extrem: General: Yes no clubbing, cyanosis or edema Psych: Appearance: grossly normal Objective Labs and Meds Result diagrams: 03/29/22 09:59 03/29/22 09:59 Lab results: Laboratory Results - last 24 hr 03/29/22 03/29/22 03/29/22 09:59 09:59 09:59 PT 17.4 H INR 1.5 H Sodium 137 Potassium 4.9 Chloride 101 Carbon Dioxide 28 Anion Gap 13 BUN 18 H Creatinine 1.05 Estim Creat Clear Calc 95.8 Estimated GFR > 60 POC Glucose Random Glucose 201 H Calcium 9.7 D Total Bilirubin 1.3 H AST 18 ALT 37 Alkaline Phosphatase 64 Troponin I High Sens 4.3 B-Natriuretic Peptide Total Protein 7.3 Albumin 4.4 Urine Color Urine Appearance Urine pH Ur Specific [place] Urine Protein Urine Glucose (UA) Urine Ketones Urine Blood Urine Nitrite Ur Leukocyte Esterase Urine RBC Urine WBC Ur Squamous Epith Cells Urine Bacteria Hyaline Casts COVID-19 (BHUPINDER) COVID-19 Clin Com Influenza Type A (SANDRA) Influenza Type B (SANDRA) Influenza A & B Note 03/29/22 03/29/22 03/29/22 09:59 09:59 09:59 PT INR Sodium Potassium Chloride Carbon Dioxide Anion Gap BUN Creatinine Estim Creat Clear Calc Estimated GFR POC Glucose Random Glucose Calcium Total Bilirubin AST ALT Alkaline Phosphatase Troponin I High Sens B-Natriuretic Peptide 28 Total Protein Albumin Urine Color Urine Appearance Urine pH Ur Specific [place] Urine Protein Urine Glucose (UA) Urine Ketones Urine Blood Urine Nitrite Ur Leukocyte Esterase Urine RBC Urine WBC Ur Squamous Epith Cells Urine Bacteria Hyaline Casts COVID-19 (BHUPINDER) Negative COVID-19 Clin Com See Note Influenza Type A (SANDRA) Negative Influenza Type B (SANDRA) Negative Influenza A & B Note See Note 03/29/22 03/29/22 03/29/22 10:11 13:34 17:03 PT INR Sodium Potassium Chloride Carbon Dioxide Anion Gap BUN Creatinine Estim Creat Clear Calc Estimated GFR POC Glucose 173 H 221 H Random Glucose Calcium Total Bilirubin AST ALT Alkaline Phosphatase Troponin I High Sens B-Natriuretic Peptide Total Protein Albumin Urine Color Yellow Urine Appearance Clear Urine pH 5.5 Ur Specific [place] 1.010 Urine Protein Negative Urine Glucose (UA) Negative Urine Ketones Negative Urine Blood Trace H Urine Nitrite Negative Ur Leukocyte Esterase Trace H Urine RBC 0-2 Urine WBC 0-5 Ur Squamous Epith Cells 0-2 Urine Bacteria None Seen Hyaline Casts 0-2 COVID-19 ([facility]UPINDER) COVID-19 Clin Com Influenza Type A (SANDRA) Influenza Type B (SANDRA) Influenza A & B Note 03/29/22 03/30/22 20:41 07:02 PT INR Sodium Potassium Chloride Carbon Dioxide Anion Gap BUN Creatinine Estim Creat Clear Calc Estimated GFR POC Glucose 205 H 156 H Random Glucose Calcium Total Bilirubin AST ALT Alkaline Phosphatase Troponin I High Sens B-Natriuretic Peptide Total Protein Albumin Urine Color Urine Appearance Urine pH Ur Specific [place] Urine Protein Urine Glucose (UA) Urine Ketones Urine Blood Urine Nitrite Ur Leukocyte Esterase Urine RBC Urine WBC Ur Squamous Epith Cells Urine Bacteria Hyaline Casts COVID-19 (BHUPINDER) COVID-19 Clin Com Influenza Type A (SANDRA) Influenza Type B (SANDRA) Influenza A & B Note EKG shows atrial flutter with rapid ventricular response with 2 is to 1 conduction with incomplete right bundle-branch block and left posterior fascicular block Imaging Radiologist's impression: Impressions Chest X-Ray 03/29/22 10:20 IMPRESSION: Unremarkable chest examination. Assessment and Plan (1) Atrial flutter with rapid ventricular response: Status: Acute Incessant atrial flutter unresponsive to regular rate control therapy with low blood pressure and development of LV systolic dysfunction. Patient require as rate control most likely with approach of rhythm control. Patient will require BARB guided cardioversion given that he has not been on oral anticoagulation for long-term to rule out intracardiac thrombi. If none then will pursue with synchronized cardioversion. Discussed with the patient the risks, benefits, alternatives to BARB as well as synchronized cardioversion. He understands agreeable. For now continue metoprolol. Most likely will require antiarrhythmic drug support once cardioverted. Clinically currently having no signs of overt heart failure, can use Multaq if converted successfully. Continue full oral anticoagulation, currently on Eliquis with CHADSVASc score of 2-3. Long-term oral anticoagulation therapy should be pursued. Patient require ischemic workup and as well as workup for sleep apnea as outpatient. (2) Cardiomyopathy: Status: Acute Cardiomyopathy process without any overt signs of heart failure. This is most likely appears to be rate-related cardiomyopathy. Therefore will pursue aggressive treatment of rapid atrial flutter and pursue synchronized cardioversion as above. Will most likely require antiarrhythmic drug therapy as above. Continue lisinopril and metoprolol therapy. Will require workup for sleep apnea as well as ischemia as outpatient. I expect his LV systolic function to improve once his rate is better controlled. Will continue to follow with you Time Spent With Patient Time: Total time managing care of this patient today ____ minutes. Procedures Date of Service Date of Service: 03/30/22
--- NOTE | 2022-03-30 10:27 | CA_ITS ---
Transesophageal Echocardiogram Patient (Last, First, Middle): Hema Ramires, Gender: Male Date of : 1960 Age: 61 Procedure Date: 03/30/2022 Procedure Type: Transesophageal Echocardiogram Location: [facility] [place] Height: 175.26 cm Weight: kg Etiquette Coach: JOHNATHAN Referring MD: Edi Brunner MD Symptoms: Pre cardioversion Conclusion: ??? 1. Moderate to severe LV systolic dysfunction with LVEF of 30 35% 2. Biatrial enlargement, right greater than left 3. No significant abnormality of cardiac valvular Dopplers 4. No intracardiac thrombi, masses or vegetations 5. No intracardiac shunting 6. Normal pericardium 7. Severe atherosclerotic changes in the descending thoracic aorta Findings Procedure Information Consent was obtained prior to the procedure. Pre BARB oral cavity was checked and revealed no overcrowding. The adult 3D probe was passed with no difficulty. This was a technically good study. Left Ventricle Normal left ventricular cavity size. There is normal left ventricular wall thickness. The visually estimated ejection fraction is between 30-35%. There is moderate global hypokinesis. There is no evidence of a mass in the left ventricle. Right Ventricle Mildly increased right ventricular cavity size. Atria The left atrium is mildly dilated. There is no evidence of interatrial shunt. The left atrial appendage is identified multiple views. Then no thrombi or masses seen in the left atrial appendage with no significant smoke formation. The left atrial appendage ejection velocity was greater than 60 centimeters/second. The left upper, right upper and right lower pulmonary vein draining normally into the left atrium. The left atrium was free of any thrombi or masses. The right atrium is mildly dilated. The right atrium was free of any thrombi or masses. The right atrial appendage was also identified without any thrombi or masses. The IVC and SVC drain normally into the right atrium. Aortic Valve Normal aortic valve structure and function. There is no aortic valve stenosis. There is trace (trivial) aortic valve regurgitation. Mitral Valve Normal mitral valve structure and function. There is trace mitral valve regurgitation. There is no mitral valve stenosis. Pulmonic Valve The pulmonic valve is likely normal. There is trace pulmonic valve regurgitation. Tricuspid Valve Normal tricuspid valve structure. There is trace tricuspid valve regurgitation. Great Vessels The pulmonary artery was not well visualized. Large plaque is seen in the arch and descending thoracic aorta. Venous The inferior vena cava is normal in size. Pericardium/Pleural There is no evidence of pericardial effusion. Updated by Edi Brunner on 04:09 PM with Status of Final Edi Brunner MD electronically signed on 03/30/2022 4:09:52 PM with status of Final
--- NOTE | 2022-03-30 10:27 | MHC.SHP ---
Pre-Procedural Eval Section A Date of Service: 03/30/22 The patient is an INPATIENT: Yes Changes since office visit: Yes New Medical Problems, Yes Changes in Medication and Yes Patient answered all questions; No Cold of Flu in the past 2 weeks The History & Physical has been completed within 30 days and I have reviewed it.: Yes Section B Chief Complaint: tachycardia, rapid a fib Allergies: Allergies Allergy/AdvReac Type Severity Reaction Status Date / Time No Known Allergies Allergy Verified 03/22/22 12:52 Plan I have reviewed the history and physical and performed a pertinent physical examination on my patient. No changes have occurred unless specified. Time Spent With Patient Time: Total time managing care of this patient today ____ minutes.
[2022-03-30] MEDS: Lactated Ringers 1,000 ML 50 ML IVCONT (11:43)
--- NOTE | 2022-03-30 13:08 | P.CONAN_ITS ---
HPI - Anesthesia Eval Consult details Narrative: 61 yo male patient for BARB, Cardioversion Eliquis, atorvastatin and metoprolol [facility] Active Problems Active Problems: All Active Problems (Updated 03/30/22 @ 10:24 by Edi Brunner MD) Cardiomyopathy (Acute) TTE 03/29/22 EF 30-35%. Mild AR Atrial flutter with rapid ventricular response (Acute) Chronic anticoagulation (Acute)- ekiquis for about 1 week Atrial flutter with rapid ventricular response (Acute) COVID-19 vaccination refused (Acute) Sinus tachycardia (Acute) Incomplete right bundle branch block (Acute) Essential hypertension (Acute) Obesity (Acute) Mixed dyslipidemia (Acute) Diabetes mellitus with hyperglycemia, without long-term current use of insulin (Acute) Past Medical History Medical History COVID-19 vaccination refused Depression Diabetes mellitus with hyperglycemia, without long-term current use of insulin Essential hypertension History of COVID-19 Incomplete right bundle branch block Lower abdominal pain Mixed dyslipidemia Obesity Sinus tachycardia Tubular adenoma of colon Urethral stricture Family History Family History Father Diabetes mellitus Smoker High cholesterol Mother Cirrhosis Brother No problems noted. Sister No problems noted. Son No problems noted. Daughter No problems noted. Family history of problems with anesthesia: No Surgical History Surgical History No pertinent past surgical history History of Problems with Anesthesia: No Social History Social History Household Members: Spouse and Children Housing: Apartment Do you presently have visiting nurse or other home services: No Unable to assess alcohol history related to: Unknown Alcohol intake: current Alcohol intake frequency: a few times a week Patient Tobacco Use Status: Former Tobacco user Tobacco use type: Cigarette Years Smoked: 5 yrs e-Cigarette/Vaping Use: Never Used Second Hand Smoke Exposure: No Advance Directives Date on File: 03/27/22 service: No Current occupational status: employed 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 Current occupational exposures/hazards: Yes Cognitive needs: No Hearing needs: No Vision needs: Yes Meds Allergies Allergy/AdvReac Type Severity Reaction Status Date / Time No Known Allergies Allergy Verified 03/22/22 12:52 Active Medications: Current Medications Acetaminophen (Acetaminophen 325 Mg Tablet) 650 mg PO Q6H PRN PRN Reason: Pain, Mild (Pain Scale 1-3) Apixaban (Apixaban 5 Mg Tablet) 5 mg PO Q12H [facility] Last Admin: 03/30/22 08:31 Dose: 5 mg Atorvastatin Calcium (Atorvastatin Calcium 80 Mg Tablet) 80 mg PO DAILY [facility] Last Admin: 03/30/22 08:31 Dose: 80 mg Insulin Human Lispro (Insulin Lispro 100 Unit/Ml 3 Ml Vial) 0 unit SUBCUT QIDACHS [facility]; Protocol Last Admin: 03/30/22 08:15 Dose: Not Given Metoprolol Tartrate (Metoprolol Tartrate 12.5 Mg Halftab) 12.5 mg PO TID [facility]; Protocol Last Admin: 03/30/22 08:31 Dose: 12.5 mg Ondansetron HCl (Ondansetron Hcl 4 Mg/2 Ml Vial) 4 mg IVPUSH Q8H PRN PRN Reason: Nausea and Vomiting Ondansetron HCl (Ondansetron Hcl 4 Mg/2 Ml Vial) 4 mg IVPUSH ONCE PRN PRN Reason: Nausea and Vomiting Pharmacy Consult (Consult Rx Perform Med Rec) 1 each MISCELLANE ONCE PRN PRN Reason: Consult order Sodium Chloride (0.9 % Sodium Chloride Flush 3 Ml Syringe) 3 ml IVFLUSH QSHIFT [facility] Last Admin: 03/30/22 08:36 Dose: 3 ml Exam Exam Date and Time: March 30, 2022 1308 Height,Weight and Vital Signs: Height 5 ft 11 in Weight 113.398 kg Last Vital Signs Temp 97.0 F 03/30/22 13:00 Pulse 132 H 03/30/22 13:00 Resp 16 03/30/22 13:00 BP 135/82 03/30/22 13:00 Pulse Ox 96 03/30/22 13:00 O2 Del Method 03/30/22 13:00 Pertinent Lab Results Pertinent Lab Results: Laboratory Tests 03/29/22 03/29/22 03/29/22 09:59 09:59 09:59 WBC 9.9 RBC 6.10 H Hgb 16.3 Hct 49.4 MCV 81.0 MCH 26.7 L MCHC 33.0 RDW 12.6 Plt Count 370 MPV 8.9 L Immature Gran % (Auto) 0.5 H Neut % (Auto) 59.6 Lymph % (Auto) 22.5 [place] % (Auto) 11.8 H Eos % (Auto) 5.1 H Baso % (Auto) 0.5 Lymph # (Auto) 2.2 [place] # (Auto) 1.2 Eos # (Auto) 0.5 H Baso # (Auto) 0.1 Abs Immat Gran (auto) 0.05 H Absolute Neuts (auto) 5.9 Absolute Nucleated RBC 0.000 Nucleated RBC % (auto) 0.0 PT 17.4 H INR 1.5 H Sodium 137 Potassium 4.9 Chloride 101 Carbon Dioxide 28 Anion Gap 13 BUN 18 H Creatinine 1.05 Estim Creat Clear Calc 95.8 Estimated GFR > 60 POC Glucose Random Glucose 201 H Calcium 9.7 D Total Bilirubin 1.3 H AST 18 ALT 37 Alkaline Phosphatase 64 Troponin I High Sens B-Natriuretic Peptide Total Protein 7.3 Albumin 4.4 Urine Color Urine Appearance Urine pH Ur Specific [place] Urine Protein Urine Glucose (UA) Urine Ketones Urine Blood Urine Nitrite Ur Leukocyte Esterase Urine RBC Urine WBC Ur Squamous Epith Cells Urine Bacteria Hyaline Casts COVID-19 (BHUPINDER) COVID-19 Clin Com Influenza Type A (SANDRA) Influenza Type B (SANDRA) Influenza A & B Note 03/29/22 03/29/22 03/29/22 09:59 09:59 09:59 WBC RBC Hgb Hct MCV MCH MCHC RDW Plt Count MPV Immature Gran % (Auto) Neut % (Auto) Lymph % (Auto) [place] % (Auto) Eos % (Auto) Baso % (Auto) Lymph # (Auto) [place] # (Auto) Eos # (Auto) Baso # (Auto) Abs Immat Gran (auto) Absolute Neuts (auto) Absolute Nucleated RBC Nucleated RBC % (auto) PT INR Sodium Potassium Chloride Carbon Dioxide Anion Gap BUN Creatinine Estim Creat Clear Calc Estimated GFR POC Glucose Random Glucose Calcium Total Bilirubin AST ALT Alkaline Phosphatase Troponin I High Sens 4.3 B-Natriuretic Peptide 28 Total Protein Albumin Urine Color Urine Appearance Urine pH Ur Specific [place] Urine Protein Urine Glucose (UA) Urine Ketones Urine Blood Urine Nitrite Ur Leukocyte Esterase Urine RBC Urine WBC Ur Squamous Epith Cells Urine Bacteria Hyaline Casts COVID-19 (BHUPINDER) COVID-19 Clin Com Influenza Type A (SANDRA) Negative Influenza Type B (SANDRA) Negative Influenza A & B Note See Note 03/29/22 03/29/22 03/29/22 09:59 10:11 13:34 WBC RBC Hgb Hct MCV MCH MCHC RDW Plt Count MPV Immature Gran % (Auto) Neut % (Auto) Lymph % (Auto) [place] % (Auto) Eos % (Auto) Baso % (Auto) Lymph # (Auto) [place] # (Auto) Eos # (Auto) Baso # (Auto) Abs Immat Gran (auto) Absolute Neuts (auto) Absolute Nucleated RBC Nucleated RBC % (auto) PT INR Sodium Potassium Chloride Carbon Dioxide Anion Gap BUN Creatinine Estim Creat Clear Calc Estimated GFR POC Glucose 173 H Random Glucose Calcium Total Bilirubin AST ALT Alkaline Phosphatase Troponin I High Sens B-Natriuretic Peptide Total Protein Albumin Urine Color Yellow Urine Appearance Clear Urine pH 5.5 Ur Specific [place] 1.010 Urine Protein Negative Urine Glucose (UA) Negative Urine Ketones Negative Urine Blood Trace H Urine Nitrite Negative Ur Leukocyte Esterase Trace H Urine RBC 0-2 Urine WBC 0-5 Ur Squamous Epith Cells 0-2 Urine Bacteria None Seen Hyaline Casts 0-2 COVID-19 (BHUPINDER) Negative COVID-19 Clin Com See Note Influenza Type A (SANDRA) Influenza Type B (SANDRA) Influenza A & B Note 03/29/22 03/29/22 03/30/22 17:03 20:41 07:02 WBC RBC Hgb Hct MCV MCH MCHC RDW Plt Count MPV Immature Gran % (Auto) Neut % (Auto) Lymph % (Auto) [place] % (Auto) Eos % (Auto) Baso % (Auto) Lymph # (Auto) [place] # (Auto) Eos # (Auto) Baso # (Auto) Abs Immat Gran (auto) Absolute Neuts (auto) Absolute Nucleated RBC Nucleated RBC % (auto) PT INR Sodium Potassium Chloride Carbon Dioxide Anion Gap BUN Creatinine Estim Creat Clear Calc Estimated GFR POC Glucose 221 H 205 H 156 H Random Glucose Calcium Total Bilirubin AST ALT Alkaline Phosphatase Troponin I High Sens B-Natriuretic Peptide Total Protein Albumin Urine Color Urine Appearance Urine pH Ur Specific [place] Urine Protein Urine Glucose (UA) Urine Ketones Urine Blood Urine Nitrite Ur Leukocyte Esterase Urine RBC Urine WBC Ur Squamous Epith Cells Urine Bacteria Hyaline Casts COVID-19 (BHUPINDER) COVID-19 Clin Com Influenza Type A (SANDRA) Influenza Type B (SANDRA) Influenza A & B Note Narrative Narrative: Laboratory Results - last 24 hr 03/29/22 03/29/22 03/29/22 13:34 17:03 20:41 POC Glucose 173 H 221 H 205 H 03/30/22 03/30/22 07:02 13:10 POC Glucose 156 H 121 H Airway Mallampati Class: III TM Dist: >3cm Neck ROM: Full Loose/Missing/Broken Teeth: Yes (Loose bottom right- canine. Denies broken teeth) Heart: ? Regular. Rapid Lungs: CTAB Assessment and Plan Assessment Anesthesia Assessment: Anesthesia Plan Discussed and Chart Reviewed Final Anesthetic Review Family History of Problems with Anesthesia: No History of Problems with Anesthesia: No NPO: Yes ASA Class: III Final Preanesthetic Review: No Changes in Pt Med Stat, Meds/Allgs Chart Reviewed, Consent Obtained/Reviewed and Anes Risks/Benef Reviewed Patient Risk: Intermediate Procedure Risk: Intermediate Assessment/Block/Sedation in SS: Assess/Block/Sedation-SS Anesthetic Plan Anesthetic Plan: MAC: Disposition: Standard PACU and Inp. Admit - Standard Bed
[2022-03-30 13:13] LABS: Glucose, Whole Blood 121 mg/dL (60-115)
--- NOTE | 2022-03-30 13:27 | P.PNIM_ITS ---
Subjective Subjective Date of Service: 03/30/22 Interval History: afib with rvr,htn Review of Systems Heart rate still elevated, denies any chest pain or shortness of breath or abdominal pain or any palpitations. Physical Exam Vital Signs: Vital Signs: Last Vital Signs Temp 97.0 F 03/30/22 13:00 Pulse 132 H 03/30/22 13:00 Resp 16 03/30/22 13:00 BP 135/82 03/30/22 13:00 Pulse Ox 96 03/30/22 13:00 O2 Del Method 03/30/22 13:00 BMI result Body Mass Index 34.8 Constitutional - Awake and Alert, No apparent distress Eyes -? PERRLA, EOMI Cardiovascular -? S1S2, IRR (120-130), No edema Respiratory - Normal lung expansion, Normal respiratory effort, No respiratory distress, CTA bilaterally Gastrointestinal -? soft,NT, ND; +BS; No rebound or guarding Extremities - no calf tenderness bilaterally, no swelling Musculoskeletal - Normal inspection, normal ROM Skin - Warm/Dry Neurological -? Alert & oriented x3, No focal deficit Psychological - Appropriate affect Objective Data Active Medications Acetaminophen (Acetaminophen 325 Mg Tablet) 650 mg PO Q6H PRN PRN Reason: Pain, Mild (Pain Scale 1-3) Apixaban (Apixaban 5 Mg Tablet) 5 mg PO Q12H [facility] Last Admin: 03/30/22 08:31 Dose: 5 mg Documented By: SEBASTIAN Atorvastatin Calcium (Atorvastatin Calcium 80 Mg Tablet) 80 mg PO DAILY [facility] Last Admin: 03/30/22 08:31 Dose: 80 mg Documented By: SEBASTIAN Insulin Human Lispro (Insulin Lispro 100 Unit/Ml 3 Ml Vial) 0 unit SUBCUT QIDACHS [facility]; Protocol Last Admin: 03/30/22 08:15 Dose: Not Given Documented By: SEBASTIAN Non-Admin Reason: NPO Metoprolol Tartrate (Metoprolol Tartrate 12.5 Mg Halftab) 12.5 mg PO TID [facility]; Protocol Last Admin: 03/30/22 08:31 Dose: 12.5 mg Documented By: SEBASTIAN Ondansetron HCl (Ondansetron Hcl 4 Mg/2 Ml Vial) 4 mg IVPUSH Q8H PRN PRN Reason: Nausea and Vomiting Ondansetron HCl (Ondansetron Hcl 4 Mg/2 Ml Vial) 4 mg IVPUSH ONCE PRN PRN Reason: Nausea and Vomiting Pharmacy Consult (Consult Rx Perform Med Rec) 1 each MISCELLANE ONCE PRN PRN Reason: Consult order Sodium Chloride (0.9 % Sodium Chloride Flush 3 Ml Syringe) 3 ml IVFLUSH QSHIFT [facility] Last Admin: 03/30/22 08:36 Dose: 3 ml Documented By: SEBASTIAN Labs CBC & Chem 7: 03/29/22 09:59 03/29/22 09:59 Labs: Laboratory Results - last 24 hr 03/29/22 03/29/22 03/29/22 13:34 17:03 20:41 POC Glucose 173 H 221 H 205 H 03/30/22 03/30/22 07:02 13:10 POC Glucose 156 H 121 H Assessment and Plan (1) Atrial flutter with rapid ventricular response: Status: Acute (2) Chronic anticoagulation: Status: Acute (3) Obesity: Status: Acute Plan 61 yo M with a PMH of HTN, HLD, DM, Obesity who presents to the ED for rapid a. flutter which was noted while at the echo lab. His rates remain difficult to control and he will be admitted for further treatment. 1. Persistent A. Fib/a. flutter with RVR case d/w cardiology -- pt likely to require BARB cardioversion if unable to control pharmacologically received iv dig 0.25x 4 doses , continue metoprolol 12.5 mg tid. not much effect with above -needs cardioversion BP on the softer side, but once improved, can add beta blockers (IV or PO) Continue eliquis Cardiology consulted -- d/w Dr. Brunner NPO for cardioversion. 2. History of HTN BP on the softer side, likely related to rapid a. fib hold baseline meds for now 3. DM hold orals, given sliding scale 4. HLD statin 5. obesity: Encouraged to lose weight. Full Code DVT pptx, Eliquis ongoing hospitalisation need:persistent afib with rvr -need cardioversion and telemonitering Time Spent With Patient Time: Total time managing care of this patient today ____ minutes. Quality Stroke Does the patient have a stroke diagnosis?: No VTE Prior VTE?: No VTE Risk Level:: Medical - moderate - high VTE Device Contraindication: Treatment Not Indicated VTE Drug Contraindication: N/A - Med Ordered
--- NOTE | 2022-03-30 14:36 | ECG_ITS ---
Test Reason : postop Blood Pressure : / mmHG Vent. Rate : 089 BPM Atrial Rate : 089 BPM P-R Int : 192 ms QRS Dur : 102 ms QT Int : 342 ms P-R-T Axes : 039 113 020 degrees QTc Int : 416 ms Normal sinus rhythm Incomplete right bundle branch block Left posterior fascicular block Abnormal ECG When compared with ECG of 30-MAR-2022 08:31, Normal sinus rhythm has replaced atrial flutter Referred By: Edi Brunner Electronically Signed By:EDI BRUNNER MD
--- NOTE | 2022-03-30 14:37 | HO.CARDIVERS ---
Cardioversion Procedure Note Cardioversion Date of Procedure: Today Ordering Provider: Myself Performing Provider: Myself Indication for Procedure: Persistent insistent atrial flutter with cardiomyopathy Pre-Op Diagnosis: Same Post-Op Diagnosis: Sinus rhythm with cardiomyopathy Performed with Transesophageal Echo: Yes BARB findings (if BARB Performed): Dictated separately, no left atrial appendage thrombus History: See my consult note Consent: Verbal and Written consent was obtained from the patient before starting the procedure and confirming oral anticoagulation use and performing BARB. The patient was made aware of the risk of synchronized cardioversion including benefits and alternatives Procedure: After consent obtained, cardioversion pads were attached anteroposterior configuration and the patient was sedated by the anesthesia team. Once adequate sedation achieved, 200 joules of biphasic synchronized energy in anteroposterior configuration Complications: None Impression: Successful conversion to sinus rhythm Recommendations: 1. 12 lead EKG 2. Start Multaq 400 mg b.i.d. for maintaining rhythm 3. Continue full oral anticoagulation Eliquis 4. Twelve lead EKG tomorrow a.m. and possible discharge tomorrow
[2022-03-30 16:14] LABS: Glucose, Whole Blood 129 mg/dL (60-115)
[2022-03-30 20:59] LABS: Glucose, Whole Blood 196 mg/dL (60-115)
[2022-03-30] MEDS: Dronedarone HCl 400 MG TABLET PO (22:16)
[2022-03-30] MEDS: Insulin Lispro 100 UNIT/ML 3 ML VIAL SUBCUT (22:16)
--- NOTE | 2022-03-31 | ECG_ITS ---
Test Reason : AFIB Blood Pressure : / mmHG Vent. Rate : 076 BPM Atrial Rate : 076 BPM P-R Int : 202 ms QRS Dur : 108 ms QT Int : 366 ms P-R-T Axes : 040 106 058 degrees QTc Int : 411 ms Normal sinus rhythm Incomplete right bundle branch block Left posterior fascicular block Abnormal ECG When compared with ECG of 30-MAR-2022 14:54, Nonspecific T wave abnormality no longer evident in Inferior leads Referred By: Dennise Cruz Electronically Signed By:YAN CEE MD
[2022-03-31 03:57] VITALS: BP 123/64; PULSE 81; RESP 18; TEMP 36.8; O2SAT 97
[2022-03-31 07:37] VITALS: BP 141/84; PULSE 74; RESP 20; TEMP 36.3; O2SAT 96
[2022-03-31 07:44] LABS: Glucose, Whole Blood 165 mg/dL (60-115)
[2022-03-31] MEDS: Apixaban 5 MG TABLET PO (08:22)
[2022-03-31] MEDS: Atorvastatin Calcium 80 MG TABLET PO (08:22)
[2022-03-31] MEDS: Dronedarone HCl 400 MG TABLET PO (08:22)
[2022-03-31] MEDS: Metoprolol Tartrate 12.5 MG HALFTAB PO (08:22)
[2022-03-31] MEDS: Insulin Lispro 100 UNIT/ML 3 ML VIAL SUBCUT (08:23)
[2022-03-31] MEDS: 0.9 % Sodium Chloride Flush 3 ML SYRINGE IVFLUSH (08:23)
[2022-03-31 09:13] VITALS: O2SAT 95
--- NOTE | 2022-03-31 10:09 | PM.DS ---
DS: Providers Provider Date of Service: 03/31/22 Date of admission: 03/29/22 12:55 Primary care physician: Jeanna Harris MD Consults: 03/29/22 13:00 Consult to Cardiology Routine Consulting Provider: Edi Brunner Reason for consultation: a. fib with rvr DS: Diagnosis Discharge Diagnosis (1) Atrial flutter with rapid ventricular response: Status: Acute (2) Chronic anticoagulation: Status: Acute (3) Obesity: Status: Acute DS: Summary Hospital Course Hospital Course: 61 year old male with a PMH of recently diagnosed A. Grey who presents to the ED after being directed from the outpatient echo lab where he was completing in a echocardiogram. The patients HR was in the 120-140s range and hence he was referred to the ED. Upon arrival to the ED, a. fib with RVR was confirmed. The ED provider discussed his case with cardiology who recommended digoxin loading +/- IV/PO metoprolol to control his HR (to avoid cardizem if possible). He has been given IV dig with his rates still in the 120s. In regards to his symptoms, the patient denies palpitations. He reports chronic SOB and orthopnea which have not acutely changed. He denies chest pain. Of note, the patient does report drinking 50-60 oz of coffee daily. Hospital course: Patient was admitted for AFib with RVR-was given IV digoxin due to softer blood pressure as well as metoprolol was added: Patient heart rate was still uncontrolled so required synchronized cardioversion by Cardiology. now is sinus rythem,Patient was started on Multaq in addition to metoprolol and discontinued cardizem and lasix. Continue Eliquis. In addition patient was strongly advised to cut down his his coffee intake. Cardiology may arrange their own appointment, further management outpatient . Above management discussed with the patient in detail length he understand in agreement with the above plan, time spent 50 minute. Plan: Continue Multaq, Eliquis Cardizem and Lasix discontinued as per cardio. Follow-up with Cardiology outpatient . Time Spent with Patient Time attestation: Total time managing care of this patient today ____ minutes. Discharge coordination time: Greater than 30 minutes Quality: Safe Use of Opioids Does Pt have an Active Cancer Diagnosis on the Problem List?: No Quality: Stroke Does the patient have a stroke diagnosis?: No Physical Exam Vital Signs: Vital Signs: Last Vital Signs Temp 97.3 F 03/31/22 07:37 Pulse 74 03/31/22 07:37 Resp 20 03/31/22 07:37 BP 141/84 H 03/31/22 07:37 Pulse Ox 96 03/31/22 07:37 O2 Del Method 03/31/22 07:37 O2 Flow Rate 6 03/30/22 14:45 BMI result Body Mass Index 34.8 Constitutional - Awake and Alert, No apparent distress Eyes -? PERRLA, EOMI Cardiovascular -? S1S2,rrr, No edema Respiratory - Normal lung expansion, Normal respiratory effort, No respiratory distress, CTA bilaterally Gastrointestinal -? soft,NT, ND; +BS; No rebound or guarding Extremities - no calf tenderness bilaterally, no swelling Musculoskeletal - Normal inspection, normal ROM Skin - Warm/Dry Neurological -? Alert & oriented x3, No focal deficit Psychological - Appropriate affect ? DS: Data Data Completed and Pending Labs on day of discharge: Laboratory Results - last 24 hr 03/30/22 03/30/22 03/30/22 13:10 16:01 20:55 POC Glucose 121 H 129 H 196 H 03/31/22 07:39 POC Glucose 165 H Imaging Chest x-ray: Radiologist's impression: ITS Impressions Chest X-Ray 03/29/22 10:20 IMPRESSION: Unremarkable chest examination. Discharge Plan Discharge Patient Disposition: Home Health Service Discharge Diagnosis: afib -needed cardioversion Referrals: Alison KING [Outside] - 1 Week Jeanna Harris MD [Primary Care Provider] - 1 Week Discharge Medications: New Multaq 400 mg Tablet 400 mg PO BID Qty: 60 0RF Continued metformin 1,000 mg tablet 1,000 mg PO BID Qty: 180 1RF atorvastatin 80 mg tablet 80 mg PO DAILY Qty: 90 1RF lisinopril 20 mg tablet 20 mg PO DAILY Qty: 90 1RF Eliquis 5 mg Tablet 5 mg PO BID Qty: 60 0RF metoprolol succinate 25 mg Tablet Extended Release 24 Hr 25 mg PO BID Qty: 60 0RF Protocol: Hold for SBP/HR < HOLD for SBP < : 90 HOLD for HR < : 60 Rx Instructions: increase from prior dose of 25 mg daily Discontinued diltiazem HCl 240 mg Capsule,Extended Release 24hr 240 mg PO DAILY Qty: 30 0RF Protocol: Hold for SBP/HR < HOLD for SBP < : 90 HOLD for HR < : 60 furosemide 40 mg tablet 40 mg PO DAILY Qty: 30 0RF Discharge Orders: Discharge Order (Routine); Ordered 03/31/22 Ordered By: Dennise Cruz Diet: Diabetic diet Activity on Discharge: As tolerated Stand Alone Forms: Patient Portal Discharge page, Work/School Release Care Plan Goals: Patient was admitted for AFib with RVR-was given IV digoxin due to softer blood pressure as well as metoprolol was added: Patient heart rate was still uncontrolled so required synchronized cardioversion by Cardiology. Patient was started on Multaq in addition to metoprolol and discontinued cardizem and lasix. Continue Eliquis. In addition patient was strongly advised to cut down his his coffee intake. Cardiology may arrange their own appointment. Health Concerns: As above. Plan of Treatment: As above. Assessment: As above.
--- NOTE | 2022-03-31 10:53 | PM.PNCARD ---
Subjective Subjective Date of Service: 03/31/22 Principal diagnosis: Persistent atrial flutter, cardiomyopathy Interval history: Patient status post BARB guided cardioversion yesterday with no intracardiac thrombi. Converted successfully to sinus rhythm. Started on Multaq. Tolerating the medications. No EKG done this morning should be done. Denies any palpitations. Says his shortness of breath is better. Review of Systems Constitutional: Reports no additional constitutional complaints Physical Exam Vital Signs: Last Vital Signs Temp 97.3 F 03/31/22 07:37 Pulse 74 03/31/22 07:37 Resp 20 03/31/22 07:37 BP 141/84 H 03/31/22 07:37 Pulse Ox 95 03/31/22 09:13 O2 Del Method 03/31/22 09:13 O2 Flow Rate 6 03/30/22 14:45 BMI result Body Mass Index 34.8 Const General: cooperative, comfortable, no acute distress, alert, awake and Physically active Nutritional Appearance: obese Orientation/consciousness: patient oriented x3 Neck Neck: Yes trachea midline, Yes supple and Yes no JVD Resp Effort & Inspection: normal respiratory effort Auscultation: clear to auscultation bilaterally Cardio Jugular venous distension: no JVD Palpation: normal PMI Rate: regular rate Rhythm: regular rhythm Heart sounds: S1 normal heart sound present, S2 normal heart sound present, no click, no gallops, no murmurs and no rubs GI Inspection: Yes obesity Auscultation: normal bowel sounds Skin General skin exam: no rashes or lesions noted Neuro General: patient oriented x3 Extrem General: Yes no clubbing, cyanosis or edema Objective Labs and Meds Result diagrams: 03/29/22 09:59 03/29/22 09:59 Lab results: Laboratory Results - last 24 hr 03/30/22 03/30/22 03/30/22 13:10 16:01 20:55 POC Glucose 121 H 129 H 196 H 03/31/22 07:39 POC Glucose 165 H Progress Note: A&P Assessment and plan (1) Atrial flutter with rapid ventricular response: Status: Acute Assessment and Plan: Incessant difficult control atrial flutter status post BARB guided cardioversion. Maintaining sinus rhythm. I think this should lead to significant improvement is overall clinical syndrome. Continue Multaq for management of rhythm. Will follow with outpatient Holter and limited echocardiogram, see below. Also need a sleep study. Continue aggressive management of blood pressure. Continue full oral anticoagulation with Eliquis. Start valsartan 40 mg daily for blood pressure control as well as cardiomyopathy. Continue Toprol 25 mg daily. Avoidance of stimulants such as excessive caffeine was discussed. (2) Cardiomyopathy: Status: Acute Assessment and Plan: Cardiomyopathy most likely tachycardia mediated related to atrial flutter. Will need ischemic workup as outpatient. Will schedule the same. Start Diovan 40 mg daily as well as Toprol. Advised to monitor blood pressure at home. Currently currently no signs of heart failure does not require Lasix. Can use Lasix on a p.r.n. basis. Will set up for outpatient follow-up. Patient can be discharged home today. Time Spent With Patient Time: Total time managing care of this patient today ____ minutes. Progress Note: Quality Stroke Does the patient have a stroke diagnosis?: No Procedures Date of Service Date of Service: 03/31/22
[2022-03-31 11:02] VITALS: BP 134/72; PULSE 82; RESP 20; TEMP 36.5; O2SAT 96
[2022-03-31 11:04] LABS: Glucose, Whole Blood 181 mg/dL (60-115)
--- NOTE | 2022-03-31 11:07 | MHC.CM.PN ---
Patient has been medically cleared for dc to home today with services. A referral was made to [facility], [facility], who has been notified of today's dc.
--- NOTE | 2022-03-31 11:28 | HO.POSTANES ---
Post Anesthesia Evaluation Post Anesthesia Evaluation Vital Signs: Vital Signs Temp Pulse Resp BP Pulse Ox O2 Del Method 03/31/22 11:02 97.7 F 82 20 134/72 96 Room Air 03/31/22 09:13 95 Room Air 03/31/22 07:37 97.3 F 74 20 141/84 H 96 Room Air 03/31/22 03:57 98.2 F 81 18 123/64 97 Room Air 03/30/22 23:50 98.2 F 85 18 132/78 94 Room Air Anesthesia: Monitored Mental Status: Awake Pain Control: Satisfactory Nausea/Vomiting: None Hydration: Adequate Anesthesia-Related Issues: No Anes. Related Issues
[2022-03-31] MEDS: Furosemide 40 MG TABLET PO (11:45)
--- NOTE | 2022-03-31 12:11 | P.F2F_ITS ---
Service Date Service Date: 03/31/22 Encounter Date of encounter: 03/31/22 Encounter: A. Fib/a. flutter with RVR Reasons for Services Signs and symptoms assessed: moniter for palpatations or chest pain or shortness of breath. Reason for nursing home: CV/CP assess and/or care, medication management, medication treatment and teach disease management MD Overseeing Care: Jeanna Harris Homebound: Leaving the home is medically contraindicated at this time without the asist of a device and/or another person due th the listed conditions above and below. Reason homebound: weakness related to hospital stay Homebound supporting statement: Patient has multiple comorbidities-including AFib: Required cardioversion, need helps with monitering new symptoms and appointments. Certification: Based on the above findings, I certify that this patient is confined to the home and needs intermittent nursing home care, physical therapy and/or speech therapy, or continues to need occupational therapy. The patient is under my care, and I have initiated the establishment of the plan of care. The patient will be followed by a physician who will periodically review the plan of care. Time Spent With Patient Time: Total time managing care of this patient today ____ minutes.
--- NOTE | 2022-03-31 12:43 | MHC.CM.PN ---
[facility] is unable to accept Patient and thus far, neither is any other VNA for various reasons. Per MD's request, CHEYANNE called Hema on his cell and he indicated that he will be returning to work and will not even be home to receive VNA. CHEYANNE relayed this information to .
== END 2022-03-31 12:30 | disposition home health service (06) ==
LOC: HO.ED 12:20 → HO.EDOVER 13:04 → HO.IMC 03-30 14:48
PROVIDERS: Hospitalist; Internal Medicine Cardiovascular Disease; Admitting Provider Family Medicine; Emergency Provider Student in an Organized Health Care Education/Training Program; PCP Internal Medicine; Visit Provider Internal Medicine
PROC: (CPT 93312; principal; 2022-03-30 13:30)
PROC: 5A2204Z Restoration of Cardiac Rhythm, Single (ICD-10-PCS; CPT 93312; 2022-03-30 13:30)
DX: I48.92 Unspecified atrial flutter (principal); I48.19 Other persistent atrial fibrillation; I45.2 Bifascicular block; R00.0 Tachycardia, unspecified; I11.9 Hypertensive heart disease without heart failure; I43 Cardiomyopathy in diseases classified elsewhere; Z20.822 Contact with and (suspected) exposure to COVID-19; R06.02 Shortness of breath; E11.9 Type 2 diabetes mellitus without complications; E78.5 Hyperlipidemia, unspecified; E66.9 Obesity, unspecified; Z68.38 Body mass index [BMI] 38.0-38.9, adult; Z87.891 Personal history of nicotine dependence; Z79.01 Long term (current) use of anticoagulants; Z79.02 Long term (current) use of antithrombotics/antiplatelets; Z79.84 Long term (current) use of oral hypoglycemic drugs; Z79.899 Other long term (current) drug therapy
CPT/HCPCS: 93312; 71045; 80053; 81001; 82947; 83880; 84484; 85025; 85610; 87502; 87635; 92960; 93005; 96361; 96374; 96375; 96376; 99219; 99285; J1160; J2250

== ENCOUNTER → 2022-05-04 14:42 | Outpatient (REF) | payer BC, SELFPAY ==
--- NOTE | 2022-05-04 14:47 | CA_ITS ---
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 There is mildly increased left ventricular wall thickness. The visually estimated ejection fraction is between 60-65%. - Normal right ventricular cavity size and systolic function. Findings Left Ventricle Normal left ventricular size and systolic function. There is mildly increased left ventricular wall thickness. The visually estimated ejection fraction is between 60-65%. There is no evidence of regional wall motion abnormalities. Abnormal diastolic function is noted. Spectral Doppler is indicative of an impaired relaxation filling pattern. E/E prime ratio is >15, consistent with elevated filling pressures. Right Ventricle Normal right ventricular cavity size and systolic function. Aortic Valve There is a normal trileaflet aortic valve. There is mild calcification of the aortic valve. Venous The inferior vena cava is normal in size and collapses greater than 50% with inspiration. Pericardium/Pleural There is no evidence of pericardial effusion. Prior Study Comparison Changes noted compared to prior study dated: 03/30/2022. LVEF is normal now. Measurements 2D Linear Measurements IVSd: 1.34 0.6-0.9/0.6-1.0 cm LVIDd: 4.70 3.9-5.3/4.2-5.9 cm LVIDd Index: 2.08 2.4-3.2/2.2-3.1 cm/m2 LVIDs: 2.70 2.0-3.6 cm LVPWd: 1.29 0.7-1.1 cm LV Mass: 301.61 67-162/88-224 g LV Mass Index: 133.46 43-95/49-115 g/m2 LVOT Diam: 2.10 3.0+(-)1.3 cm 2D Systolic Function EF 4C: 63.10 >55% EF 2C: 57.60 >55% EF BiP: 61.10 >55% Mitral Valve MV Pk E: 1.03 MV PK A: 1.29 MV Decel Time: 318.00 E/A: 0.80 E'Lateral: 6.31 E'Medial: 5.55 E/E' Med: 18.60 E/E' Lat: 16.30 PHT: 93.00 MVA PHT: 2.37 Decel [place]: 3.23 LVOT LVOT Pk Jf: 1.39 LVOT Mn Jf: 0.94 LVOT VTI: 0.28 LVOT Pk Grad: 8.00 LVOT Mn Grad: 4.00 LVOT Diam: 2.10 LVOT Area: 3.46 Diastolic Function MV Pk E: 1.03 MV Pk A: 1.29 E/A: 0.80 E'Medial: 5.55 E/E' Med: 18.60 E' Laterial: 6.31 E/E' Lat: 16.30 Updated in Other Vendor System with Status of Final Asher Garsia MD electronically signed on 05/05/2022 10:16:55 PM with status of Final
== END ==
LOC: HO.CARD 14:42
PROVIDERS: PCP Internal Medicine; Visit Provider Internal Medicine Cardiovascular Disease
DX: I45.10 Unspecified right bundle-branch block (principal); I48.91 Unspecified atrial fibrillation; R00.0 Tachycardia, unspecified
CPT/HCPCS: 93308; Q9957

== ENCOUNTER 2022-05-08 14:19 | Outpatient (REF) | payer BC, SELFPAY ==
[2022-05-08 17:02] LABS: Alanine Aminotransferase 32 U/L (0-40); Anion Gap 15 (12-20); Aspartate Amino Transferase 20 U/L (5-37); Blood Urea Nitrogen 17 mg/dL (9-16); Carbon Dioxide 25 mmol/L (22-29); Chloride 104 mmol/L (96-108); Cholesterol 93 mg/dL; Estimated Glomerular Filt Rate > 60; Glucose Fasting 94 mg/dL (60-99); HDL Cholesterol 26 mg/dL; LDL Cholesterol Calculated 52 mg/dl; Potassium 4.7 mmol/L (3.3-5.1); Sodium 139 mmol/L (135-145); Triglycerides 77 mg/dL
[2022-05-08 17:29] LABS: Creatinine Urine 222.31 mg/dL; Microalbum/Creatinine Ratio Ur 28.7 ug/mg cr
[2022-05-08 17:35] LABS: Estimated Average Glucose 148 mg/dL; Hemoglobin A1c % 6.8 %
== END 2022-05-08 14:20 | disposition home or self-care (01) ==
LOC: HO.HMGCLDS 14:19
PROVIDERS: PCP Internal Medicine; Visit Provider Internal Medicine
DX: E11.65 Type 2 diabetes mellitus with hyperglycemia (principal); E78.2 Mixed hyperlipidemia; E66.9 Obesity, unspecified; I10 Essential (primary) hypertension
CPT/HCPCS: 36415; 80048; 80061; 82043; 83036; 84450; 84460

== ENCOUNTER → 2022-06-07 08:00 | Outpatient (REF) | payer BC, SELFPAY ==
--- NOTE | ~2022-06-07 | NM_ITS ---
Myocardial perfusion study Indication: Atrial fibrillation to evaluate for myocardial ischemia Technique: The patient was brought in for a Lexiscan perfusion study on 06/07/2022. Patient performed low-level exercise and was injected 0.4 mg of Lexiscan intravenously. Within a minute of injection, 40 mCi of sestamibi was given intravenously. Images were obtained using the SPECT gamma camera interlaced with the gating device. Images were obtained in supine position. Resting perfusion study was performed on 06/08/2022. Patient was administered 40 mCi of sestamibi intravenously at rest. Images were then obtained in supine position. Images obtained with and without CT attenuation. Total DLP 107 mGy-cm. Images were processed with the software and compared side to side in short axis, horizontal long axis and vertical long axis views. Findings: The stress perfusion study showed non attenuated images show mildly reduced uptake in the inferolateral and portion all lateral wall of the LV myocardium as well as mildly reduced uptake in the basal inferior wall of the LV myocardium. Attenuation corrected images show mildly reduced uptake in the apex as well as lateral wall of the LV myocardium as well as mildly reduced uptake in the distal anterior wall of the LV myocardium.. The gated study shows reduced LV systolic function with calculated LVEF of 42%. LV cavity is mildly dilated size. The gated study shows normal wall thickening and contraction of segments. Resting study shows improved uptake in the lateral and inferolateral wall of the LV myocardium on non attenuated images as well as improved uptake in the lateral and inferolateral as well as the distal anterior wall on attenuated corrected images. Gating at rest reveals normal systolic wall motion with ejection fraction at 56%. The findings are consistent with lateral and inferolateral wall ischemia. NM/NM cardiolite stress test Impression: 1. Myocardial perfusion imaging study shows lateral and inferolateral wall ischemia possible distal anterior wall ischemia 2. Gated LVEF is 42% with stress and 56% with rest 3. Transient ischemic dilatation not present EKG is nondiagnostic ischemia
--- NOTE | 2022-06-07 08:04 | CA_ITS ---
Acquisition Time: 2022-06-07 08:08:26 Total Exercise Time: 00:02:00 Test Indications: AFLUTTER Medications: SEE H Protocol: LEXISCAN Max HR: 099 BPM 61% of Pred: 160 BPM Max BP: 128/078 mmHG Max Work Load: 1.6 METS Pharmacological stress test with Lexiscan injection, while walking slow on treadmill, without anginal symptoms, without arrythmia, with normotensive response to injection, with nondiagnostic EKG for ischemia. Nuclear images pending. Test reviewed [facility] Dr Valadez Referred By: Edi Brunner Overread By: BRAD CANDELARIA
== END ==
LOC: HO.CARD 08:00
PROVIDERS: PCP Internal Medicine; Visit Provider Internal Medicine Cardiovascular Disease
DX: I45.10 Unspecified right bundle-branch block (principal); I48.91 Unspecified atrial fibrillation; R00.0 Tachycardia, unspecified; E66.9 Obesity, unspecified
CPT/HCPCS: 78452; 93017; A9500; J0280; J2785

== ENCOUNTER → 2022-06-08 08:45 | Outpatient (REF) | payer BC, SELFPAY ==
--- NOTE | 2022-06-08 08:50 | HM_ITS ---
Conclusion: 1. Patient was monitored for total period of 3 days 2. Baseline was normal sinus rhythm with average heart of 69 beats per minute 3. No significant pauses noted 4. Rare ectopy noted 5. No atrial fibrillation noted 6. One SVT run at 135 beats per minute lasting 9 beats 7. Patient activated the counter 1 time without associated symptoms which correlated with sinus rhythm MTDD
== END ==
LOC: HO.CARD 08:45
PROVIDERS: PCP Internal Medicine; Visit Provider Internal Medicine Cardiovascular Disease
DX: I45.10 Unspecified right bundle-branch block (principal); I48.91 Unspecified atrial fibrillation; R60.0 Localized edema
CPT/HCPCS: 93242

== ENCOUNTER 2022-06-28 15:09 | Outpatient (REF) | payer BC, SELFPAY ==
[2022-06-28 17:31] LABS: Anion Gap 14 (12-20); Blood Urea Nitrogen 20 mg/dL (9-16); Calcium 9.1 mg/dL (8.4-10.2); Carbon Dioxide 24 mmol/L (22-29); Chloride 105 mmol/L (96-108); Estimated Glomerular Filt Rate > 60; Glucose Random 89 mg/dL (60-115); Potassium 4.7 mmol/L (3.3-5.1); Sodium 138 mmol/L (135-145)
== END 2022-06-28 15:10 | disposition home or self-care (01) ==
LOC: HO.HMGCLDS 15:09
PROVIDERS: PCP Internal Medicine; Visit Provider Internal Medicine Cardiovascular Disease
DX: R94.39 Abnormal result of other cardiovascular function study (principal); I42.9 Cardiomyopathy, unspecified; I48.92 Unspecified atrial flutter
CPT/HCPCS: 36415; 80048

== ENCOUNTER → 2022-07-27 12:37 | Outpatient (BNVA) | payer BC, SELFPAY | PROVIDERS: PCP Internal Medicine; Referring Provider Internal Medicine; Visit Provider Nurse Practitioner Family | DX: Z13.89 Encounter for screening for other disorder (principal) ==

== ENCOUNTER 2022-09-26 07:51 | Outpatient (REF) | payer BC, SELFPAY ==
[2022-09-26 11:29] LABS: Estimated Average Glucose 137 mg/dL; Hemoglobin A1c % 6.4 %
[2022-09-26 11:44] LABS: Alanine Aminotransferase 31 U/L (0-40); Anion Gap 8 (12-20); Aspartate Amino Transferase 17 U/L (5-37); Blood Urea Nitrogen 14 mg/dL (9-16); Calcium 9.2 mg/dL (8.4-10.2); Carbon Dioxide 28 mmol/L (22-29); Chloride 104 mmol/L (96-108); Cholesterol 115 mg/dL; Estimated Glomerular Filt Rate > 60; Glucose Fasting 143 mg/dL (60-99); HDL Cholesterol 29 mg/dL; LDL Cholesterol Calculated 54 mg/dl; Potassium 4.5 mmol/L (3.3-5.1); Sodium 135 mmol/L (135-145); Triglycerides 161 mg/dL
== END 2022-09-26 07:52 | disposition home or self-care (01) ==
LOC: HO.HMGCLDS 07:51
PROVIDERS: PCP Internal Medicine; Visit Provider Internal Medicine
DX: E11.65 Type 2 diabetes mellitus with hyperglycemia (principal); E78.2 Mixed hyperlipidemia; I10 Essential (primary) hypertension
CPT/HCPCS: 36415; 80048; 80061; 83036; 84450; 84460

== ENCOUNTER 2023-01-03 07:27 | Outpatient (REF) | payer BC, SELFPAY ==
[2023-01-03 11:27] LABS: Alanine Aminotransferase 44 U/L (0-40); Anion Gap 17 (12-20); Aspartate Amino Transferase 24 U/L (5-37); Blood Urea Nitrogen 13 mg/dL (9-16); Calcium 9.2 mg/dL (8.4-10.2); Carbon Dioxide 25 mmol/L (22-29); Chloride 101 mmol/L (96-108); Cholesterol 113 mg/dL (<200); Estimated Glomerular Filt Rate > 60; Glucose Fasting 183 mg/dL (60-99); HDL Cholesterol 28 mg/dL (>40); LDL Cholesterol Calculated 64 mg/dL (<100); Potassium 4.5 mmol/L (3.3-5.1); Sodium 138 mmol/L (135-145); Triglycerides 105 mg/dL (<150)
[2023-01-03 12:43] LABS: Estimated Average Glucose 174 mg/dL; Hemoglobin A1c % 7.7 % (<6.0)
== END 2023-01-03 07:28 | disposition home or self-care (01) ==
LOC: HO.HMGCLDS 07:27
PROVIDERS: PCP Internal Medicine; Visit Provider Internal Medicine
DX: E78.2 Mixed hyperlipidemia (principal); E11.9 Type 2 diabetes mellitus without complications; I10 Essential (primary) hypertension
CPT/HCPCS: 36415; 80048; 80061; 83036; 84450; 84460

== ENCOUNTER 2023-01-10 15:34 | Outpatient (AMB) | payer BC, SELFPAY ==
[2023-01-10 15:42] VITALS: BP 122/70; PULSE 78; O2SAT 97; BMI 36.2
--- NOTE | 2023-01-10 15:42 | A.OFFPC_ITS ---
Vital Signs 01/10/23 15:42 Height 5 ft 10 in Weight 252 lb BMI 36.2 BP 122/70 Blood Pressure Location Lt brachial Position Sitting Pulse 78 Pulse Source Pulse Oximeter Pulse Oximetry (%) 97 Intake Visit Reasons: 4 M/F HTN, DM Intake Note: pt is here today for his 4mo. f/u htn,dm Allergies No Known Allergies Allergy (Verified 01/10/23 15:57) Medication List - Last Reconciled 01/10/23 by Jeanna Harris MD apixaban (Eliquis) 5 mg PO BID 90 days atorvastatin 80 mg PO DAILY blood sugar diagnostic (FreeStyle Lite Strips) Check Fasting blood sugar twice a day as directed blood-glucose meter (FreeStyle Lite Meter kit) check fasting blood sugar twice a day before a meal lancets (FreeStyle Lancets) Check fasting blood sugar twice a day as directed lisinopril 20 mg PO DAILY metformin 1,000 mg PO BID metoprolol succinate ER 25 mg See Protocol PO BID 90 days Tobacco use date assessed: 01/10/23 Dental Screening Dental Screen Date: 01/10/23 Did you have a dental visit in the last 12 months?: Yes Did you have a dental problem in the last 6 months where you did not have access to dental care?: No Was dental information given to patient?: Patient has dentist HPI 4 M/F HTN, DM HPI Details 62-year-old male here today for follow-u p on his diabetes, hypertension, and hyper lipidemia. He takes metformin a 1000 mg 1 tablet twice a day, lisinopril 20 mg daily and metoprolol succinate ER 25 mg once a day as well as atorvastatin 80 mg daily. He is up-to-date with his eye exam, no retinopathy seen. He has gained weight, admits to not being fully compliant with his diet and has to started exercising, went to the gym yesterday after several months. She complains of pain and stiffness in his upper back, would like a prescription for massage therapy, which his insurance remembers is as lost ers a prescription FORMERLY [facility], [facility] Medical History (Updated 01/10/23 @ 16:14 by Jeanna Harris MD) Diabetes mellitus, without long-term current use of insulin Current use of usp anticoagulation Atrial fibrillation status post cardioversion COVID-19 vaccination refused Sinus tachycardia Incomplete right bundle branch block Lower abdominal pain History of COVID-19 Essential hypertension Depression Mixed dyslipidemia Tubular adenoma of colon Urethral stricture Diabetes mellitus with hyperglycemia, without long-term current use of insulin Surgical History No pertinent past surgical history Family History Father Diabetes mellitus Smoker High cholesterol Mother Cirrhosis Brother No problems noted. Sister No problems noted. Son No problems noted. Daughter No problems noted. 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 How often do you have a drink containing alcohol?: Never Total Score: 0 BITA-7 AMB Questionnaire BITA-7 Date BITA - 7 assessed: 04/06/22 Source: Developed by Drs. Leo Moore, Awa Joaquin, Mychal Peter and colleagues, with an educational rigo from [employer]. Review of Systems Const Denies chills, Denies fatigue, Denies fever(s), Denies frequent falls and Denies weakness Eyes Denies change in vision ENT Denies dizziness Card Denies chest pain, Denies leg edema, Denies lightheadedness, Denies palpitations, Denies dyspnea, Denies dyspnea on exertion and Denies orthopnea Resp Denies cough, Denies dyspnea and Denies dyspnea on exertion GI Denies hematochezia and Denies change in stool character Musc Denies abnormal gait, Reports back pain (Upper back pain and shoulders), Denies muscle weakness, Denies numbness, Denies radiating pain into limb and Denies tingling Neuro Denies abnormal gait, Denies dizziness, Denies frequent falls, Denies numbness, Denies Sensory deficit (Neuro), Denies tingling and Denies weakness Endo Denies fatigue and Denies palpitations Joshua/Lymph Reports no additional complaints Aller/Immun Reports no additional complaints Physical exam (Primary Care) Vital Signs: Last Vital Signs Pulse 78 01/10/23 15:42 BP 122/70 01/10/23 15:42 Pulse Ox 97 01/10/23 15:42 BMI result Body Mass Index 36.2 BMI Assessment/Plan discussion: High BMI High, discussed plan: lifestyle, weight reduction, dietary and physical activity Tobacco/Smoking Status: Tobacco use Status Tobacco use date assessed 01/10/23 01/10/23 15:44 Patient Tobacco Use Status Former Tobacco user 01/10/23 15:44 Tobacco use type Cigarette 01/10/23 15:44 e-Cigarette/Vaping Use Never Used 01/10/23 15:44 Thrive Assessment: Date of Thrive Assessment Date Thrive assessed 04/06/22 01/10/23 15:44 Const General: no acute distress Orientation/consciousness: patient oriented x3 HENMT Ears: external ears normal, TM's normal bilaterally and EAC's normal General nose exam: Normal external nose present Mouth: oropharynx normal and moist mucous membranes Eyes General: appearance normal, both eyes and all related structures Neck Neck: Yes full ROM, Yes no lymphadenopathy and Yes supple Resp Effort & Inspection: normal respiratory effort and able to speak in complete sentences Auscultation: clear to auscultation bilaterally Cardio Rate: regular rate Rhythm: regular rhythm Heart sounds: S1 normal heart sound present and S2 normal heart sound present GI Inspection: Yes obesity Palpation (GI): Soft to palpation, nontender and no masses Auscultation: normal bowel sounds Back/Spine/Pelvis Back: back tenderness (Over bilateral trapezius and upper midback) Skin General skin exam: no rashes or lesions noted Neuro General: patient oriented x3, gait normal, tone normal, moves all extremities, Normal light touch and pain sensation and no focal motor deficits Cranial nerves: Yes CN's II-XII intact bilaterally Cognition (Neuro): normal cognition Sensory Exam: No Sensory deficit (Neuro) Extrem General: Yes full ROM, Yes no joint enlargement, Yes no clubbing, cyanosis or edema and Yes no calf tenderness Results Reviewed Results Reviewed: ENTERED: 01/03/[address]: ORDERED: Met Prof Fast, AST, ALT, Lipid Panel Test Result Flag Reference Site Sodium 138 135-145 mmol/L Potassium 4.5 3.3-5.1 mmol/L CL 101 96-108 mmol/L CO2 25 22-29 mmol/L Gap 17 12-20 BUN 13 9-16 mg/dL Creat 0.85 0.5-1.4 mg/dL EGFR > 60 NOTE: For -Lao individuals, multiply the result by 1.210. Chronic Kidney Disease: Estimated GFR < 60 mL/min/1.73m2 Severe Kidney Disease: Estimated GFR < 15 mL/min/1.73m2 FBS 183 H 60-99 mg/dL A fasting glucose of 126 mg/dl or greater on more than one occasion is considered diagnostic of diabetes. CA 9.2 8.4-10.2 mg/dL AST (GOT) 24 5-37 U/L ALT (GPT) 44 H 0-40 U/L Triglyceride 105 <150 mg/dL Desirable Triglyceride: less than 150 mg/dL Borderline High Triglyceride 150-199 mg/dL High Triglyceride: 200-499 mg/dL Very High Triglyceride: greater than or equal to 5OO mg/dL Cholesterol 113 <200 mg/dL Desirable Cholesterol: less than 200 mg/dL Borderline High Cholesterol: 200-239 mg/dL High Cholesterol: greater than 239 mg/dL LDL Calculated 64 <100 mg/dL Desirable LDL: less than 100 mg/dL Near Optimal/Above Optimal LDL: 110-129 mg/dL Borderline High LDL: 130-159 mg/dL High LDL: 160-189 mg/dL Very High LDL: greater than or equal to 190 mg/dL HDL 28 L >40 mg/dL Desirable HDL: greater than 40 mg/dL Note: This HDL assay may give artificially low results in patients with liver disease. ENTERED: 01/03/23 SANDRA : ORDERED: Hgb A1c Test Result Flag Reference Site A1c % 7.7 H <6.0 % Hemoglobin A1C Reference Range Adults: 4.8 - 6.0 % Non diabetic: < 6.0 % Goal: < 7.0 % Additional Action Suggested: > 8.0 % Note: Hemoglobin A1c results are invalid for patients with abnormal amounts of HbF. Blood transfusions may impact the HbA1c concentration in the patient sample. Est. Avg. Gluc 174 mg/dL Assessment and Plan Assessment & Plan (1) Muscle strain of upper back: Code(s): S29.012A - Strain of muscle and tendon of back wall of thorax, initial encounter Plan: Prescription written for massage therapy, which is reimbursed by his insurance (2) Obesity: Code(s): E66.9 - Obesity, unspecified Qualifiers: Body mass index: BMI 36.0-36.9 Obesity classification: adult class 2 (BMI 35 - 39.9) Obesity type: due to excess calories Serious obesity comorbidity presence: with serious comorbidity Qualified Code(s): E66.01 - Morbid (severe) obesity due to excess calories; Z68.36 - Body mass index [BMI] 36.0-36.9, adult Plan: Discussed need to increase activity and wt reduction. Recommended focusing on improving your health instead of dieting. : Eat Mediterranean diet, limit foods high in fat, sugar, and calories, eat slowly, pay attention to portion sizes, plan your meals ahead of time, start regular physical activity 150 minutes of moderate intensity exercise or 90 minutes/week of vigorous exercise and increase water intake. (3) Essential hypertension: Code(s): I10 - Essential (primary) hypertension Plan: Blood pressure at goal of less than 130/80. Continue with lisinopril 20 mg daily. Reinforced importance of following a low sodium diet, getting regular exercise, and lowering stress levels. (4) Mixed dyslipidemia: Code(s): E78.2 - Mixed hyperlipidemia Plan: Reviewed recent fasting lipid profile with patient with levels within normal limits, continue with atorvastatin 80 mg daily, in addition to adherence to low- cholesterol diet and regular exercise, at least 30 minutes 3 to 4 times a week. Advised patient to make healthy food choices, eat more fruits, vegetables, whole grains, wild caught fish and low-fat dairy. Limit amount of meat and fried or fatty food products, as well as processed foods and fast foods. Follow-up scheduled with repeat fasting lipid panel in 3 months. (5) Diabetes mellitus, without long-term current use of insulin: Code(s): E11.9 - Type 2 diabetes mellitus without complications Plan: Recent lab results reviewed with patient, with sugar and hemoglobin A1c higher than last check. Will continue on metformin a 1000 mg 1 tablet twice a day and continue to check fasting blood sugar at home, maintain log and bring to next appointment for review. Reinforced diabetic diet and regular exercise with patient. Up-to-date with yearly diabetes retinopathy screening. Patient advised to inspect feet daily, for any signs of injury, callus or infection. Compliance with diet and regular exercise again stressed. Blood pressure goal is less than 130/80, goal LDL is less than 100 and goal hemoglobin A1c is less than 7% follow-up appointment made in-3--months, after fasting labs done. Orders: Orders Hemoglobin A1c 3 Months E11.9 - Type 2 diabetes mellitus without complications, E66.9 - Obesity, unspecified, E78.2 - Mixed hyperlipidemia, I10 - Essential (primary) hypertension Microalbumin, Random (w Creat) 3 Months E11.9 - Type 2 diabetes mellitus without complications, E66.9 - Obesity, unspecified, E78.2 - Mixed hyperlipidemia, I10 - Essential (primary) hypertension Basic Metabolic Panel Fasting 3 Months E11.9 - Type 2 diabetes mellitus without complications, E66.9 - Obesity, unspecified, E78.2 - Mixed hyperlipidemia, I10 - Essential (primary) hypertension Aspartate Amino Transferase 3 Months E11.9 - Type 2 diabetes mellitus without complications, E66.9 - Obesity, unspecified, E78.2 - Mixed hyperlipidemia, I10 - Essential (primary) hypertension Alanine Aminotransferase 3 Months E11.9 - Type 2 diabetes mellitus without complications, E66.9 - Obesity, unspecified, E78.2 - Mixed hyperlipidemia, I10 - Essential (primary) hypertension Lipid Panel 3 Months E11.9 - Type 2 diabetes mellitus without complications, E66.9 - Obesity, unspecified, E78.2 - Mixed hyperlipidemia, I10 - Essential (primary) hypertension Medications: New [Massage therapy] Recommended therapeutic massage at least twice a month, lasting an hour each 1 ea 0RF S29.012A - Strain of muscle and tendon of back wall of thorax, initial encounter Refilled blood sugar diagnostic (FreeStyle Lite Strips) Check Fasting blood sugar twice a day as directed 100 ea 5RF E11.65 - Type 2 diabetes mellitus with hyperglycemia Coding Level of Care Code Est Pt Level 4 (17493) Diagnoses Muscle strain of upper back S29.012A Class 2 severe obesity due to excess calories with serious comorbidity and body mass index (BMI) of 36.0 to 36.9 in adult E66.01; Z68.36 Body mass index: BMI 36.0-36.9 Obesity classification: adult class 2 (BMI 35 - 39.9) Obesity type: due to excess calories Serious obesity comorbidity presence: with serious comorbidity Essential hypertension I10 Mixed dyslipidemia E78.2 Diabetes mellitus, without long-term current use of insulin E11.9
== END 2023-01-10 16:23 | disposition home or self-care (01) ==
PROVIDERS: PCP Internal Medicine; Visit Provider Internal Medicine
DX: S29.012A Strain of muscle and tendon of back wall of thorax, initial encounter (principal); E66.01 Morbid (severe) obesity due to excess calories; E11.9 Type 2 diabetes mellitus without complications; Z68.36 Body mass index [BMI] 36.0-36.9, adult; I10 Essential (primary) hypertension; E78.2 Mixed hyperlipidemia
CPT/HCPCS: 99214

== ENCOUNTER 2023-01-31 13:06 | Outpatient (AMB) | payer BC, SELFPAY ==
--- NOTE | 2023-01-31 13:23 | A.OFFVIS_ITS ---
Intake Vital Signs 01/31/23 13:26 Height 5 ft 10 in Weight 253 lb 8.505 oz BMI 36.4 BP 122/70 Blood Pressure Location Lt brachial Position Sitting Pulse 73 Intake Visit Reasons: 6 mth f/u per DC Intake Note: 6 month follow up Blood Typer Required: No Allergies No Known Allergies Allergy (Verified 01/31/23 13:26) Medication List - Last Reconciled 01/31/23 by Sanket Valadez MD apixaban (Eliquis) 5 mg PO BID 90 days atorvastatin 80 mg PO DAILY blood sugar diagnostic (FreeStyle Lite Strips) Check Fasting blood sugar twice a day as directed blood-glucose meter (FreeStyle Lite Meter kit) check fasting blood sugar twice a day before a meal lancets (FreeStyle Lancets) Check fasting blood sugar twice a day as directed lisinopril 20 mg PO DAILY [Massage therapy Recommended therapeutic massage at least twice a month, lasting an hour each] metformin 1,000 mg PO BID metoprolol succinate ER 25 mg See Protocol PO BID 90 days HPI HPI Comments History of Present Illness Details Hema returns for follow-up. Few months back, he was seen regarding tachycardia, he was also having exertion shortness of breath. EKG then showed atrial flutter with rapid rate and he was then admitted. Underwent BARB/cardioversion. Echocardiogram at shown cardiomyopathy. Any case, he did well after that and follow-up echocardiogram at shown improved LVEF. Now he states he feels fine. No new complaints. 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 Sister No problems noted. Son No problems noted. Daughter No problems noted. 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 Current occupational exposures/hazards: Yes Cognitive needs: No Hearing needs: No Vision needs: Yes Review of Systems Const All systems reviewed & are unremarkable except as noted in HPI and below Reports as per HPI and Reports no additional complaints Eyes Reports as per HPI and Denies no additional complaints ENT Denies no additional complaints and Reports as per HPI Card Reports as per HPI, Reports no additional complaints, Denies acrocyanosis, Denies chest pain, Denies leg edema, Denies lightheadedness, Denies palpitations and Denies dyspnea Resp Reports as per HPI, Denies no additional complaints and Denies dyspnea GI Reports as per HPI and Denies no additional complaints Reports no additional complaints and Reports as per HPI Musc Reports no additional complaints and Reports as per HPI Skin/Breast Reports system reviewed and no additional complaints, except as documented Neuro Reports no additional complaints and Reports as per HPI Psych Reports no additional complaints and Reports as per HPI Endo Reports no additional complaints, Reports as per HPI and Denies palpitations Joshua/Lymph Reports no additional complaints and Reports as per HPI Aller/Immun Reports no additional complaints and Reports as per HPI Physical Exam Vital Signs: Last Vital Signs Pulse 73 01/31/23 13:26 BP 122/70 01/31/23 13:26 BMI result Body Mass Index 36.4 Const General: comfortable and no acute distress Orientation/consciousness: patient oriented x3 HEENT Other: Unremarkable Head: Yes normal to inspection Neck Neck: Yes normal visual inspection Chest Chest palpation & inspection: normal inspection of the chest Resp Auscultation: clear to auscultation bilaterally Cardio Palpation: normal PMI Heart sounds: S1 normal heart sound present, S2 normal heart sound present, no gallops, no murmurs and no rubs GI Palpation (GI): Soft to palpation Back/Spine/Pelvis Other: unremarkable Skin General skin exam: no rashes or lesions noted Neuro General: patient oriented x3 Extrem General: Yes normal to inspection Psych Mental Status: mental status grossly normal Office Procedures EKG Details: EKG with sinus rhythm at 73/Min; incomplete right bundle-branch block type pattern; [place] [id number], Complete Assessment & Plan Assessment & Plan (1) Paroxysmal atrial flutter: Code(s): I48.92 - Unspecified atrial flutter Plan: EKG from March 2022 with atrial flutter rate of 137/Min. After that, patient underwent cardioversion. Notes then state that he was supposed to be Multaq, but not in his meds. EKG today shows sinus rhythm as above. May continue beta- blockers as he has been maintaining sinus rhythm. Continue with anticoagulation. Check sleep study for any occult sleep apnea. (2) Cardiomyopathy: Code(s): I42.9 - Cardiomyopathy, unspecified Qualifiers: Cardiomyopathy type: other Qualified Code(s): I42.8 - Other cardiomyopathies Plan: Echocardiogram from 03/2022 shows LVEF of 30-35%. Most recent study shows normal LVEF. 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 No clear symptoms of cardiomyopathy. Orders: Orders RT home sleep study Today G47.33 - Obstructive sleep apnea (adult) (pediatric) Coding Level of Care Code Est Pt Level 4 (41667) Diagnoses Paroxysmal atrial flutter I48.92 Other cardiomyopathy I42.8 Cardiomyopathy type: other CPT Codes EKG - CPT: 09437-[id number], Complete ([id number])
[2023-01-31 13:26] VITALS: BP 122/70; PULSE 73; BMI 36.4
== END 2023-01-31 13:49 | disposition home or self-care (01) ==
PROVIDERS: Visit Provider Internal Medicine
DX: I48.92 Unspecified atrial flutter (principal); I42.8 Other cardiomyopathies
CPT/HCPCS: 93010; 99214

== ENCOUNTER → 2023-01-31 13:06 | Outpatient (BNVA) | payer BC, SELFPAY | PROVIDERS: Visit Provider Internal Medicine | DX: I48.92 Unspecified atrial flutter (principal); I45.19 Other right bundle-branch block; I42.8 Other cardiomyopathies; I10 Essential (primary) hypertension; Z98.890 Other specified postprocedural states; Z79.01 Long term (current) use of anticoagulants | CPT/HCPCS: 93005 ==

== ENCOUNTER → 2023-03-20 15:43 | Outpatient (REF) | payer BC, SELFPAY | LOC: HO.SL 15:43 | PROVIDERS: PCP Internal Medicine; Visit Provider Internal Medicine | DX: G47.33 Obstructive sleep apnea (adult) (pediatric) (principal) | CPT/HCPCS: 95806 ==

== ENCOUNTER → 2023-03-20 15:50 | Outpatient (BNV) | payer BC, SELFPAY | PROVIDERS: PCP Internal Medicine; Visit Provider Internal Medicine | DX: G47.33 Obstructive sleep apnea (adult) (pediatric) (principal) | CPT/HCPCS: 95806 ==

== ENCOUNTER 2023-05-10 14:54 | Outpatient (AMB) | payer BC, SELFPAY ==
[2023-05-10 14:58] VITALS: BP 128/70; PULSE 68; O2SAT 96; BMI 35.9
--- NOTE | 2023-05-10 14:58 | A.OFFVIS_ITS ---
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 The patient is a 62-year-old gentleman with a known history of atrial flutter as well as underlying cardiovascular disease. The patient was referred over for an abnormal sleep study. The patient has been complaining of significant daytime drowsiness. His [place] score is elevated 01/22. . He has never had a sleep study. In view of his significant cardiovascular risk factors in the cardiac arrhythmia the patient was referred to have a home sleep study. We did review the home sleep study together. It appears that his AHI is close to 15 consistent with [id number] LANCE. He also has significant hypoxia. Based on this I explained to the patient that is crucial for him to start PAP therapy. The patient is agreeable this time. Will make arrangement for her to start APAP with local DME company. Once the patient gets his equipment start using it every night while sleeping. 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 Sister No problems noted. Son No problems noted. Daughter No problems noted. 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 Current occupational exposures/hazards: Yes Cognitive needs: No Hearing needs: No Vision needs: Yes Review of Systems Const Reports daytime sleepiness Eyes Reports as per HPI and Denies no additional complaints ENT Denies no additional complaints and Reports as per HPI Card Reports as per HPI, Reports no additional complaints, Denies acrocyanosis, Denies chest pain, Denies leg edema, Denies lightheadedness, Denies palpitations and Denies dyspnea Resp Denies no additional complaints and Denies dyspnea GI Reports no additional complaints Musc Reports no additional complaints Skin/Breast Reports system reviewed and no additional complaints, except as documented Neuro Reports no additional complaints and Reports as per HPI Psych Reports no additional complaints and Reports as per HPI Endo Reports no additional complaints, Reports as per HPI and Denies palpitations Joshua/Lymph Reports no additional complaints and Reports as per HPI Aller/Immun Reports no additional complaints and Reports as per HPI Physical Exam Vital Signs: Last Vital Signs Pulse 68 05/10/23 14:58 BP 128/70 05/10/23 14:58 Pulse Ox 96 05/10/23 14:58 Oxygen Delivery Method Room Air 05/10/23 14:58 BMI result Body Mass Index 35.9 Const General: comfortable and no acute distress Orientation/consciousness: patient oriented x3 HEENT Other: Unremarkable Head: Yes normal to inspection Neck Neck: Yes normal visual inspection Chest Chest palpation & inspection: normal inspection of the chest Resp Effort & Inspection: normal respiratory effort Auscultation: clear to auscultation bilaterally Cardio Heart sounds: S1 normal heart sound present, S2 normal heart sound present, no gallops, no murmurs and no rubs GI Palpation (GI): Soft to palpation Back/Spine/Pelvis Other: unremarkable Skin General skin exam: no rashes or lesions noted Neuro General: patient oriented x3 Extrem General: Yes normal to inspection Psych Mental Status: mental status grossly normal Assessment & Plan Assessment & Plan (1) LANCE (obstructive sleep apnea): Code(s): G47.33 - Obstructive sleep apnea (adult) (pediatric) Plan start APAP F/U 3 months Coding Level of Care Code New Pt Level 3 (24368) Diagnoses LANCE (obstructive sleep apnea) G47.33 Time Spent (min) 30
== END 2023-05-10 15:19 | disposition home or self-care (01) ==
PROVIDERS: PCP Internal Medicine; Visit Provider Hospitalist
DX: G47.33 Obstructive sleep apnea (adult) (pediatric) (principal)
CPT/HCPCS: 99203

== ENCOUNTER → 2023-05-10 14:54 | Outpatient (BNVA) | payer BC, SELFPAY | PROVIDERS: PCP Internal Medicine; Visit Provider Hospitalist ==

== ENCOUNTER 2023-05-17 08:19 | Outpatient (REF) | payer BC, SELFPAY ==
[2023-05-17 11:33] LABS: Estimated Average Glucose 212 mg/dL
[2023-05-17 11:49] LABS: Alanine Aminotransferase 41 U/L (0-40); Anion Gap 12 (12-20); Aspartate Amino Transferase 25 U/L (5-37); Blood Urea Nitrogen 12 mg/dL (9-16); Calcium 9.2 mg/dL (8.4-10.2); Carbon Dioxide 27 mmol/L (22-29); Chloride 103 mmol/L (96-108); Cholesterol 115 mg/dL (<200); Estimated Glomerular Filt Rate > 60; Glucose Fasting 191 mg/dL (60-99); HDL Cholesterol 28 mg/dL (>40); LDL Cholesterol Calculated 69 mg/dL (<100); Potassium 4.2 mmol/L (3.3-5.1); Sodium 138 mmol/L (135-145); Triglycerides 90 mg/dL (<150)
[2023-05-17 12:27] LABS: Creatinine Urine 188.76 mg/dL; Microalbum/Creatinine Ratio Ur 20.1 ug/mg cr (<30)
== END 2023-05-17 08:20 | disposition home or self-care (01) ==
LOC: HO.HMGCLDS 08:19
PROVIDERS: PCP Internal Medicine; Visit Provider Internal Medicine
DX: E66.9 Obesity, unspecified (principal); E78.2 Mixed hyperlipidemia; E11.9 Type 2 diabetes mellitus without complications; I10 Essential (primary) hypertension
CPT/HCPCS: 36415; 80048; 80061; 82043; 82570; 83036; 84450; 84460

== ENCOUNTER 2023-05-31 13:36 | Outpatient (AMB) | payer BC, SELFPAY ==
[2023-05-31 13:40] VITALS: BP 120/72; PULSE 76; O2SAT 96; BMI 35.7
--- NOTE | 2023-05-31 13:40 | A.OFFPC_ITS ---
Vital Signs 05/31/23 13:40 Height 5 ft 10 in Weight 249 lb BMI 35.7 BP 120/72 Blood Pressure Location Rt brachial Position Sitting Pulse 76 Pulse Source Pulse Oximeter Pulse Oximetry (%) 96 Oxygen Delivery Method Room Air Intake Visit Reasons: f/u labs Intake Note: pt is here to follow up for lab results Allergies No Known Allergies Allergy (Verified 09/12/23 15:59) Medication List - Last Reconciled 05/31/23 by Jeanna Harris MD apixaban (Eliquis) 5 mg PO BID 90 days atorvastatin 80 mg PO DAILY blood sugar diagnostic (FreeStyle Lite Strips) Check Fasting blood sugar twice a day as directed blood-glucose meter (FreeStyle Lite Meter kit) check fasting blood sugar twice a day before a meal lancets (FreeStyle Lancets) Check fasting blood sugar twice a day as directed lisinopril 20 mg PO DAILY [Massage therapy Recommended therapeutic massage at least twice a month, lasting an hour each] metformin 1,000 mg PO BID metoprolol succinate ER 25 mg See Protocol PO BID 90 days Tobacco use date assessed: 05/31/23 Dental Screening Dental Screen Date: 05/31/23 Did you have a dental visit in the last 12 months?: Yes Did you have a dental problem in the last 6 months where you did not have access to dental care?: No Was dental information given to patient?: Patient has dentist HPI f/u labs HPI Details 63-year-old male with diabetes mellitus, hypertension hyperlipidemia, here today for his follow-up. He is supposed to be taking metformin 1000 mg twice a day, but has not been very compliant with taking his medications, nor has he been fully compliant with diet or getting regular exercise. Latest hemoglobin A1c is at 9%, up from 7.7% 4 months ago recent fasting lipids however are within normal limits except for elevated triglycerides and low HDL cholesterol. At pressure is stable and controlled on lisinopril and metoprolol. [facility] Medical History (Updated 09/12/23 @ 16:14 by Jeanna Harris MD) Diabetes mellitus with hyperglycemia, without long-term current use of insulin LANCE (obstructive sleep apnea) Current use of fdc anticoagulation Atrial fibrillation status post cardioversion COVID-19 vaccination refused Sinus tachycardia Incomplete right bundle branch block Lower abdominal pain History of COVID-19 Essential hypertension Depression Mixed dyslipidemia Tubular adenoma of colon Urethral stricture Surgical History No pertinent past surgical history Family History Father Diabetes mellitus Smoker High cholesterol Mother Cirrhosis Brother No problems noted. Sister No problems noted. Son No problems noted. Daughter No problems noted. 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 1. Little interest or pleasure in doing things: not at all 2. Feeling down, depressed, or hopeless: not at all 3. Trouble falling or staying asleep, or sleeping too much: not at all 4. Feeling tired or having little energy: several days 5. Poor appetite or overeating: not at all 6. Feeling bad about yourself - or that you are a failure or have let yourself or your family down: not at all 7. Trouble concentrating on things, such as reading the newspaper or watching television: not at all 8. Moving or speaking so slowly that other people could have noticed. Or the opposite - being so fidgety or restless that you have been moving around a lot more than usual: not at all 9. Thoughts that you would be better off or of hurting yourself in some way: not at all Total score: 1 Depression Screening Interpretation: Negative Depression Screening Done: Yes 78745 - PHQ-9 Billing: Yes Source: Developed by Drs. Leo Moore, Awa Joaquin, Mychal Peter and colleagues, with an educational rigo from [employer]. Thrive Questionnaire Date Thrive assessed: 05/31/23 I am a: Patient What is your living situation today?: I have a steady place to live Within the past 12 months, did the food you bought not last and you didn't have the money to get more?: Often true Within the past 12 months, did you worry whether your food would run out before you got money to buy more?: Never true Do you have trouble paying for medicines?: No Do you have trouble getting transportation to medical appointments?: No Do you have trouble paying your heating and electricity bill?: No Do you have trouble taking care of your child, family member or friend?: No Do you have trouble with day-to-day activities such as bathing, preparing meals, shopping, managing finances, etc.?: No Are you currently unemployed and looking for a job?: No Are you interested in more education?: I choose not to answer this question THRIVE Score: 1 AUDIT C Alcohol Use Questionnaire (AUDIT-C) 1. How often do you have a drink containing alcohol?: Monthly or less 2. How many drinks containing alcohol do you have on a typical day when you are drinking?: 1 or 2 3. How often do you have six or more drinks on one occasion?: Never Total Score: 1 BITA-7 AMB Questionnaire BITA-7 Date BITA - 7 assessed: 05/31/23 Feeling nervous, anxious, or on edge: 0 = Not at all Not being able to stop or control worryin = Not at all Worrying too much about different things: 0 = Not at all Trouble relaxin = Not at all Being so restless that it is hard to sit still: 0 = Not at all Becoming easily annoyed or irritable: 0 = Not at all Feeling afraid as if something awful might happen: 0 = Not at all Total BITA-7 score (0-4 normal; 5-9 mild; 10-14 moderate; 15-21 severe): 0 Source: Developed by Drs. Leo Moore, Awa Joaquin, Mychal Peter and colleagues, with an educational rigo from [employer]. BITA-7 Assessment Billing BITA-7 Assessment Tool: BITA-7 Assessment 65572 Review of Systems Const Denies weakness Eyes Denies change in vision ENT Reports no additional complaints Card Denies chest pain, Denies chest pain with activity, Denies edema, Denies lightheadedness, Denies palpitations, Denies dyspnea and Denies dyspnea on exertion Resp Denies cough, Denies dyspnea and Denies dyspnea on exertion GI Denies abdominal pain, Denies melena, Denies bloating, Denies hematochezia, Denies change in bowel habits, Denies change in stool character and Denies heartburn Reports no additional complaints Musc Denies abnormal gait, Denies muscle cramps, Denies muscle weakness, Denies numbness, Denies radiating pain into limb and Denies tingling Neuro Denies abnormal gait, Denies numbness, Denies Sensory deficit (Neuro), Denies tingling and Denies weakness Endo Reports polydipsia, Reports polyuria and Denies palpitations Physical exam (Primary Care) Vital Signs: Last Vital Signs Pulse 76 05/31/23 13:40 BP 120/72 05/31/23 13:40 Pulse Ox 96 05/31/23 13:40 Oxygen Delivery Method Room Air 05/31/23 13:40 BMI result Body Mass Index 35.7 BMI Assessment/Plan discussion: High BMI High, discussed plan: lifestyle, weight reduction, dietary and physical activity Tobacco/Smoking Status: Tobacco use Status Tobacco use date assessed 05/31/23 05/31/23 13:47 Patient Tobacco Use Status Former Tobacco user 05/31/23 13:40 Tobacco use type Cigarette 05/31/23 13:40 e-Cigarette/Vaping Use Never Used 05/31/23 13:40 PHQ-9: PHQ-9 Score PHQ-9: Total score 1 09/16/23 02:05 Depression Screening Interpretation: Negative Thrive Assessment: Date of Thrive Assessment Date Thrive assessed 05/31/23 05/31/23 13:53 Const General: no acute distress Orientation/consciousness: patient oriented x3 HENMT General nose exam: Normal external nose present Mouth: oropharynx normal and moist mucous membranes Eyes General: appearance normal, both eyes and all related structures Neck Neck: Yes full ROM, Yes no lymphadenopathy and Yes supple Resp Effort & Inspection: normal respiratory effort and able to speak in complete sentences Auscultation: clear to auscultation bilaterally Cardio Rate: regular rate Rhythm: regular rhythm Heart sounds: S1 normal heart sound present and S2 normal heart sound present GI Inspection: Yes obesity Palpation (GI): Soft to palpation, nontender and no masses Auscultation: normal bowel sounds Skin General skin exam: no rashes or lesions noted Neuro General: patient oriented x3, gait normal, tone normal, moves all extremities, Normal light touch and pain sensation and no focal motor deficits Cranial nerves: Yes CN's II-XII intact bilaterally Cognition (Neuro): normal cognition Sensory Exam: No Sensory deficit (Neuro) Extrem General: Yes full ROM, Yes no joint enlargement, Yes no clubbing, cyanosis or edema and Yes no calf tenderness Results Reviewed Results Reviewed: Laboratory Tests 09/26/22 01/03/23 05/17/23 07:58 07:40 08:24 Estimat Average Glucose 137 174 212 Hemoglobin A1c % 6.4 7.7 H 9.0 H ENTERED: 05/17/[address] [facility] [address]: ORDERED: Met Prof Fast, AST, ALT, Lipid Panel Test Result Flag Reference Sodium 138 135-145 mmol/L Potassium 4.2 3.3-5.1 mmol/L CL 103 96-108 mmol/L CO2 27 22-29 mmol/L Gap 12 12-20 BUN 12 9-16 mg/dL Creat 0.91 0.5-1.4 mg/dL EGFR > 60 NOTE: For -Indian individuals, multiply the result by 1.210. Chronic Kidney Disease: Estimated GFR < 60 mL/min/1.73m2 Severe Kidney Disease: Estimated GFR < 15 mL/min/1.73m2 FBS 191 H 60-99 mg/dL A fasting glucose of 126 mg/dl or greater on more than one occasion is considered diagnostic of diabetes. CA 9.2 8.4-10.2 mg/dL AST (GOT) 25 5-37 U/L ALT (GPT) 41 H 0-40 U/L Triglyceride 90 <150 mg/dL Desirable Triglyceride: less than 150 mg/dL Borderline High Triglyceride 150-199 mg/dL High Triglyceride: 200-499 mg/dL Very High Triglyceride: greater than or equal to 5OO mg/dL Cholesterol 115 <200 mg/dL Desirable Cholesterol: less than 200 mg/dL Borderline High Cholesterol: 200-239 mg/dL High Cholesterol: greater than 239 mg/dL LDL Calculated 69 <100 mg/dL Desirable LDL: less than 100 mg/dL Near Optimal/Above Optimal LDL: 110-129 mg/dL Borderline High LDL: 130-159 mg/dL High LDL: 160-189 mg/dL Very High LDL: greater than or equal to 190 mg/dL HDL 28 L >40 mg/dL Desirable HDL: greater than 40 mg/dL Note: This HDL assay may give artificially low results in patients with liver disease. Assessment and Plan Assessment & Plan (1) Diabetes mellitus, without long-term current use of insulin: Code(s): E11.9 - Type 2 diabetes mellitus without complications Plan: Reinforced importance of taking medications as directed, currently on metformin 1000 mg taken 1 tablet twice a day. Stressed importance of following recommended diet and getting at least 15 minutes of cardio exercise to start off with and then increase amount of time as tolerated. Reminded to get his yearly eye exam done to check for any retinopathy (2) Essential hypertension: Code(s): I10 - Essential (primary) hypertension Plan: Blood pressure at goal of less than 130/80. Continue with current medication. Reinforced importance of following a low sodium diet, getting regular exercise, and lowering stress levels. (3) Mixed dyslipidemia: Code(s): E78.2 - Mixed hyperlipidemia Plan: Continue atorvastatin 80 mg daily Orders: Orders Lipid Panel 08/31/23 E11.9 - Type 2 diabetes mellitus without complications, I10 - Essential (primary) hypertension, E78.2 - Mixed hyperlipidemia Hemoglobin A1c 08/31/23 E11.9 - Type 2 diabetes mellitus without complications, I10 - Essential (primary) hypertension, E78.2 - Mixed hyperlipidemia Comprehensive [place]. Panel Fast 08/31/23 E11.9 - Type 2 diabetes mellitus w ithout complications, I10 - Essential (primary) hypertension, E78.2 - Mixed hyperlipidemia Basic Metabolic Panel Fasting 08/31/23 E11.9 - Type 2 diabetes mellitus without complications, I10 - Essential (primary) hypertension, E78.2 - Mixed hyperlipidemia Medications: Changed From metformin 1,000 mg PO BID 180 tabs 1RF To metformin 1,000 mg PO BID 180 tabs 3RF From blood sugar diagnostic Check Fasting blood sugar twice a day as directed 100 ea 5RF E11.65 - Type 2 diabetes mellitus with hyperglycemia To blood sugar diagnostic (FreeStyle Lite Strips) Check Fasting blood sugar twice a day as directed 100 ea 5RF E11.65 - Type 2 diabetes mellitus with hyperglycemia Refilled lisinopril 20 mg PO DAILY 90 tabs 3RF I10 - Essential (primary) hypertension atorvastatin 80 mg PO DAILY 90 tabs 3RF E78.2 - Mixed hyperlipidemia metoprolol succinate ER 25 mg See Protocol PO BID 180 tabs 3RF 90 days Coding Level of Care Code Est Pt Level 4 (69097) Diagnoses Diabetes mellitus, without long-term current use of insulin E11.9 Essential hypertension I10 Mixed dyslipidemia E78.2 Additional Codes BITA-7 Assessment Billing - BITA-7 Assessment Tool: BITA-7 Assessment 56487 ([id number])
== END 2023-05-31 15:55 | disposition home or self-care (01) ==
PROVIDERS: PCP Internal Medicine; Visit Provider Internal Medicine
DX: E11.9 Type 2 diabetes mellitus without complications (principal); I10 Essential (primary) hypertension; E78.2 Mixed hyperlipidemia
CPT/HCPCS: 99499

== ENCOUNTER 2023-08-12 14:11 | Outpatient (AMB) | payer BC, SELFPAY ==
[2023-08-12 14:20] VITALS: BP 128/68; PULSE 78; O2SAT 98; BMI 35.1
--- NOTE | 2023-08-12 14:20 | MHC.OFFVIS ---
Vital Signs 08/12/23 14:20 Height 5 ft 10 in Weight 244 lb 11.41 oz BMI 35.1 BP 128/68 Blood Pressure Location Lt brachial Position Sitting Pulse 78 Pulse Source Monitor Pulse Oximetry (%) 98 Oxygen Delivery Method Room Air Intake Visit Reasons: 6 mth fu Allergies No Known Allergies Allergy (Verified 05/31/23 13:57) Medication List - Last Reconciled 08/12/23 by Sanket Valadez MD apixaban (Eliquis) 5 mg PO BID 90 days atorvastatin 80 mg PO DAILY blood sugar diagnostic (FreeStyle Lite Strips) Check Fasting blood sugar twice a day as directed blood-glucose meter (FreeStyle Lite Meter kit) check fasting blood sugar twice a day before a meal lancets (FreeStyle Lancets) Check fasting blood sugar twice a day as directed lisinopril 20 mg PO DAILY [Massage therapy Recommended therapeutic massage at least twice a month, lasting an hour each] metformin 1,000 mg PO BID metoprolol succinate ER 25 mg See Protocol PO BID 90 days HPI Comments Details: Hema returns for follow-up. In 2021, he had symptomatic atrial flutter with rapid rate. Underwent BARB/cardioversion. Echocardiogram then showed cardiomyopathy. He did well after that. Brief use of Multaq but then he has been only on beta-blockers after that. Also anticoagulation. Overall, he feels good. No cardiac symptoms. [facility] Medical History LANCE (obstructive sleep apnea) Diabetes mellitus, without long-term current use of insulin Current use of shelter anticoagulation Atrial fibrillation status post cardioversion COVID-19 vaccination refused Sinus tachycardia Incomplete right bundle branch block Lower abdominal pain History of COVID-19 Essential hypertension Depression Mixed dyslipidemia Tubular adenoma of colon Urethral stricture Diabetes mellitus with hyperglycemia, without long-term current use of insulin Surgical History No pertinent past surgical history Family History Father Diabetes mellitus Smoker High cholesterol Mother Cirrhosis Brother No problems noted. Sister No problems noted. Son No problems noted. Daughter No problems noted. 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 Current occupational exposures/hazards: Yes Cognitive needs: No Hearing needs: No Vision needs: Yes Review of Systems Const Denies weakness ENT Denies dizziness Card Denies chest pain, Denies chest pain with activity, Denies syncope, Denies rapid heart rate, Denies pedal edema, Denies edema, Denies leg edema, Denies lightheadedness, Denies palpitations, Denies dyspnea, Denies dyspnea on exertion and Denies orthopnea Resp Denies cough, Denies dyspnea and Denies dyspnea on exertion GI Denies hematochezia and Denies change in stool character Musc Denies abnormal gait, Denies muscle cramps, Denies muscle weakness, Denies numbness, Denies radiating pain into limb and Denies tingling Neuro Denies abnormal gait, Denies dizziness, Denies syncope, Denies numbness, Denies tingling and Denies weakness Endo Denies palpitations Physical Exam Vital Signs: Last Vital Signs Pulse 78 08/12/23 14:20 BP 128/68 08/12/23 14:20 Pulse Ox 98 08/12/23 14:20 Oxygen Delivery Method Room Air 08/12/23 14:20 BMI result Body Mass Index 35.1 Const General: comfortable and no acute distress Orientation/consciousness: patient oriented x3 HEENT Other: Unremarkable Head: Yes normal to inspection Neck Neck: Yes normal visual inspection Chest Chest palpation & inspection: normal inspection of the chest Resp Auscultation: clear to auscultation bilaterally Cardio Palpation: normal PMI Heart sounds: S1 normal heart sound present, S2 normal heart sound present, no gallops, no murmurs and no rubs GI Palpation (GI): Soft to palpation Back/Spine/Pelvis Other: unremarkable Skin General skin exam: no rashes or lesions noted Neuro General: patient oriented x3 Extrem General: Yes normal to inspection Psych Mental Status: mental status grossly normal Assessment & Plan Assessment & Plan (1) Paroxysmal atrial flutter: Code(s): I48.92 - Unspecified atrial flutter Category: Medical Plan: EKG from March 2022 with atrial flutter rate of 137/Min. Status post cardioversion. Continue beta-blockers and anticoagulation. (2) Cardiomyopathy: Code(s): I42.9 - Cardiomyopathy, unspecified Category: Medical Qualifiers: Cardiomyopathy type: other Qualified Code(s): I42.8 - Other cardiomyopathies Plan: Echocardiogram from 03/2022 shows LVEF of 30-35%. Most recent study shows normal LVEF. 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 No clear symptoms of cardiomyopathy. (3) LANCE (obstructive sleep apnea): Code(s): G47.33 - Obstructive sleep apnea (adult) (pediatric) Category: Medical Plan: Mild LANCE. Already seen pulmonary and awaiting CPAP. Coding Level of Care Code Est Pt Level 4 (68962) Diagnoses Paroxysmal atrial flutter I48.92 Other cardiomyopathy I42.8 Cardiomyopathy type: other LANCE (obstructive sleep apnea) G47.33
== END 2023-08-12 14:32 | disposition home or self-care (01) ==
PROVIDERS: PCP Internal Medicine; Visit Provider Internal Medicine
DX: I48.92 Unspecified atrial flutter (principal); I42.8 Other cardiomyopathies; G47.33 Obstructive sleep apnea (adult) (pediatric)
CPT/HCPCS: 99214

== ENCOUNTER → 2023-08-12 14:11 | Outpatient (BNVA) | payer BC, SELFPAY | PROVIDERS: PCP Internal Medicine; Visit Provider Internal Medicine ==

== ENCOUNTER 2023-09-06 07:58 | Outpatient (REF) | payer BC, SELFPAY ==
[2023-09-06 10:51] LABS: Estimated Average Glucose 171 mg/dL; Hemoglobin A1c % 7.6 % (<6.0)
[2023-09-06 11:38] LABS: Alanine Aminotransferase 36 U/L (0-40); Alkaline Phosphatase 59 U/L (39-117); Anion Gap 10 (12-20); Aspartate Amino Transferase 22 U/L (5-37); Bilirubin Total 0.9 mg/dL (0.0-1.0); Blood Urea Nitrogen 16 mg/dL (9-16); Calcium 9.1 mg/dL (8.4-10.2); Carbon Dioxide 29 mmol/L (22-29); Chloride 105 mmol/L (96-108); Cholesterol 128 mg/dL (<200); Estimated Glomerular Filt Rate > 60; Glucose Fasting 179 mg/dL (60-99); HDL Cholesterol 32 mg/dL (>40); LDL Cholesterol Calculated 68 mg/dL (<100); Potassium 4.2 mmol/L (3.3-5.1); Sodium 140 mmol/L (135-145); Total Protein 6.9 g/dL (6.5-8.0); Triglycerides 142 mg/dL (<150)
== END 2023-09-06 07:59 | disposition home or self-care (01) ==
LOC: HO.HMGCLDS 07:58
PROVIDERS: PCP Internal Medicine; Visit Provider Internal Medicine
DX: E11.9 Type 2 diabetes mellitus without complications (principal); I10 Essential (primary) hypertension; E78.2 Mixed hyperlipidemia
CPT/HCPCS: 36415; 80053; 80061; 83036

== ENCOUNTER 2023-09-12 15:10 | Outpatient (AMB) | payer BC, SELFPAY ==
[2023-09-12 15:16] VITALS: BP 138/68; PULSE 68; O2SAT 96; BMI 35.5
--- NOTE | 2023-09-12 15:16 | A.OFFPC_ITS ---
Vital Signs 09/12/23 15:16 Height 5 ft 10 in Weight 247 lb 8 oz BMI 35.5 BP 138/68 Blood Pressure Location Rt brachial Position Sitting Pulse 68 Pulse Source Pulse Oximeter Pulse Oximetry (%) 96 Oxygen Delivery Method Room Air Intake Visit Reasons: follow up Intake Note: Pt is here today for a follow up Allergies No Known Allergies Allergy (Verified 09/12/23 15:59) Medication List - Last Reconciled 09/12/23 by Jeanna Harris MD apixaban (Eliquis) 5 mg PO BID 90 days atorvastatin 80 mg PO DAILY blood sugar diagnostic (FreeStyle Lite Strips) Check Fasting blood sugar twice a day as directed blood-glucose meter (FreeStyle Lite Meter kit) check fasting blood sugar twice a day before a meal lancets (FreeStyle Lancets) Check fasting blood sugar twice a day as directed lisinopril 20 mg PO DAILY [Massage therapy Recommended therapeutic massage at least twice a month, l asting an hour each] metformin 1,000 mg PO BID metoprolol succinate ER 25 mg See Protocol PO BID 90 days Tobacco use date assessed: 09/12/23 Dental Screening Dental Screen Date: 09/12/23 Did you have a dental visit in the last 12 months?: No Did you have a dental problem in the last 6 months where you did not have access to dental care?: No Was dental information given to patient?: Patient has dentist HPI follow up HPI Details 63-year-old male with hsitory of Diabet es mellitus , Hypertension, and Hyperlipidemia, here for his follow-up.. He takes metformin a 1000 mg 1 tablet twice a day, lisinopril 20 mg daily and metoprolol succinate ER 25 mg once a day as well as atorvastatin 80 mg daily. He is up-to-date with his eye exam, no retinopathy seen. He has not been able to lose weight, , admits to not fully compliant with diet but has started exercising again. Recent labs showed improvement in his A1c but still not at goal of less than 6.5%. Fasting lipids however are within normal limits He currently sees Cardiology for history of atrial fibrillation status post cardioversion and cardiomyopathy, currently on Eliquis. He also was diagnosed to have obstructive sleep apnea, sees Pulmonary, awaiting CPAP. 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 Sister No problems noted. Son No problems noted. Daughter No problems noted. 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 How often do you have a drink containing alcohol?: Monthly or less 2. How many drinks containing alcohol do you have on a typical day when you are drinking?: 1 or 2 3. How often do you have six or more drinks on one occasion?: Never Total Score: 1 Score Reviewed/Action Taken: Yes BITA-7 AMB Questionnaire BITA-7 Date BITA - 7 assessed: 05/31/23 Source: Developed by Drs. Leo Moore, Awa Joaquin, Mychal Peter and colleagues, with an educational rigo from [employer]. Review of Systems Const Denies weakness Eyes Denies change in vision ENT Reports no additional complaints Card Denies chest pain, Denies chest pain with activity, Denies edema, Denies lightheadedness, Denies palpitations, Denies dyspnea and Denies dyspnea on exertion Resp Denies cough, Denies dyspnea and Denies dyspnea on exertion GI Denies abdominal pain, Denies melena, Denies bloating, Denies hematochezia, Denies change in bowel habits, Denies change in stool character and Denies heartburn Reports no additional complaints Musc Denies abnormal gait, Denies muscle cramps, Denies muscle weakness, Denies numbness, Denies radiating pain into limb and Denies tingling Neuro Denies abnormal gait, Denies numbness, Denies Sensory deficit (Neuro), Denies tingling and Denies weakness Endo Denies palpitations Physical exam (Primary Care) Vital Signs: Last Vital Signs Pulse 68 09/12/23 15:16 BP 138/68 09/12/23 15:16 Pulse Ox 96 09/12/23 15:16 Oxygen Delivery Method Room Air 09/12/23 15:16 BMI result Body Mass Index 35.5 BMI Assessment/Plan discussion: High BMI High, discussed plan: lifestyle, weight reduction, dietary and physical activity Tobacco/Smoking Status: Tobacco use Status Tobacco use date assessed 09/12/23 09/12/23 15:18 Patient Tobacco Use Status Former Tobacco user 09/12/23 15:18 Tobacco use type Cigarette 09/12/23 15:18 e-Cigarette/Vaping Use Never Used 09/12/23 15:18 Thrive Assessment: Date of Thrive Assessment Date Thrive assessed 05/31/23 09/12/23 15:18 Const General: no acute distress Orientation/consciousness: patient oriented x3 HENMT Ears: external ears normal, TM's normal bilaterally and EAC's normal General nose exam: Normal external nose present Mouth: oropharynx normal and moist mucous membranes Eyes General: appearance normal, both eyes and all related structures Neck Neck: Yes full ROM, Yes no lymphadenopathy and Yes supple Resp Effort & Inspection: normal respiratory effort and able to speak in complete sentences Auscultation: clear to auscultation bilaterally Cardio Rate: regular rate Rhythm: regular rhythm Heart sounds: S1 normal heart sound present and S2 normal heart sound present GI Inspection: Yes obesity Palpation (GI): Soft to palpation, nontender and no masses Auscultation: normal bowel sounds Skin General skin exam: no rashes or lesions noted Neuro General: patient oriented x3, gait normal, tone normal, moves all extremities, Normal light touch and pain sensation and no focal motor deficits Cranial nerves: Yes CN's II-XII intact bilaterally Cognition (Neuro): normal cognition Sensory Exam: No Sensory deficit (Neuro) Extrem General: Yes full ROM, Yes no joint enlargement, Yes no clubbing, cyanosis or edema and Yes no calf tenderness Results Reviewed Results Reviewed: Laboratory Tests 05/17/23 09/06/23 08:24 08:05 Estimat Average Glucose 212 171 Hemoglobin A1c % 9.0 H 7.6 H Microalb/Creat Ratio 20.1 Name: Hema Ramires Age/Sex: 62/M : 1960 Unit#: [id number] Attend Dr: Jeanna Harris MD Re09/06/23 Status: DEP REF Location: [facility] Disch: SPEC : [id number] DANTE: 09/06/23 STATUS: COMP REQ : [id number] RECD: 09/06/[address]: Jeanna Harris MD COMP: 09/06/23 ENTERED: 09/06/[address]: ORDERED: CMP Fast, Lipid Panel Test Result Flag Reference Sodium 140 135-145 mmol/L Potassium 4.2 3.3-5.1 mmol/L CL 105 96-108 mmol/L CO2 29 22-29 mmol/L Gap 10 L 12-20 BUN 16 9-16 mg/dL Creat 0.90 0.5-1.4 mg/dL EGFR > 60 NOTE: For -[place] individuals, multiply the result by 1.210. Chronic Kidney Disease: Estimated GFR < 60 mL/min/1.73m2 Severe Kidney Disease: Estimated GFR < 15 mL/min/1.73m2 FBS 179 H 60-99 mg/dL A fasting glucose of 126 mg/dl or greater on more than one occasion is considered diagnostic of diabetes. CA 9.1 8.4-10.2 mg/dL Total Bili 0.9 0.0-1.0 mg/dL AST (GOT) 22 5-37 U/L ALT (GPT) 36 0-40 U/L Protein, Total 6.9 6.5-8.0 g/dL Alb 4.0 3.5-5.0 g/dL Triglyceride 142 <150 mg/dL Desirable Triglyceride: less than 150 mg/dL Borderline High Triglyceride 150-199 mg/dL High Triglyceride: 200-499 mg/dL Very High Triglyceride: greater than or equal to 5OO mg/dL Cholesterol 128 <200 mg/dL Desirable Cholesterol: less than 200 mg/dL Borderline High Cholesterol: 200-239 mg/dL High Cholesterol: greater than 239 mg/dL LDL Calculated 68 <100 mg/dL Desirable LDL: less than 100 mg/dL Near Optimal/Above Optimal LDL: 110-129 mg/dL Borderline High LDL: 130-159 mg/dL High LDL: 160-189 mg/dL Very High LDL: greater than or equal to 190 mg/dL HDL 32 L >40 mg/dL Desirable HDL: greater than 40 mg/dL Note: This HDL assay may give artificially low results in patients with liver disease. Alk Phos 59 39-117 U/L Assessment and Plan Assessment & Plan (1) Mixed dyslipidemia: Code(s): E78.2 - Mixed hyperlipidemia Plan: Continue on atorvastatin 80 mg daily in addition to adhering to recommended diet and getting regular exercise (2) Essential hypertension: Code(s): I10 - Essential (primary) hypertension Plan: Continued on lisinopril 40 mg daily and metoprolol succinate ER 25 mg twice a day (3) Diabetes mellitus with hyperglycemia, without long-term current use of insulin: Code(s): E11.65 - Type 2 diabetes mellitus with hyperglycemia Plan: Improvement in his diabetes control noted with latest hemoglobin A1c at 7.6%. Goal however is less than 6.5%, continue with metformin a 1000 mg 1 tablet twice a day and stressed importance of following recommended diet and getting regular exercise. Would like to try further improving his glucose control with diet and exercise. Prescription sent also for new continue meter and contour test strips, check twice a day before meals and or 2 hours after eating, and record copy of readings, to bring on next visit for review Orders: Orders Hemoglobin A1c 12/31/23 E11.9 - Type 2 diabetes mellitus without complications, E78.2 - Mixed hyperlipidemia, I10 - Essential (primary) hypertension Alanine Aminotransferase 12/31/23 E11.9 - Type 2 diabetes mellitus without complications, E78.2 - Mixed hyperlipidemia, I10 - Essential (primary) hypertension Aspartate Amino Transferase 12/31/23 E11.9 - Type 2 diabetes mellitus without complications, E78.2 - Mixed hyperlipidemia, I10 - Essential (primary) hypertension Basic Metabolic Panel Fasting 12/31/23 E11.9 - Type 2 diabetes mellitus without complications, E78.2 - Mixed hyperlipidemia, I10 - Essential (primary) hypertension Lipid Panel 12/31/23 E11.9 - Type 2 diabetes mellitus without complications, E78.2 - Mixed hyperlipidemia, I10 - Essential (primary) hypertension Medications: New blood-glucose meter (Contour Next Meter) Check fasting blood sugar twice a day before meals 1 ea 0RF E11.65 - Type 2 diabetes mellitus with hyperglycemia blood sugar diagnostic (Contour Next Test Strips) As directed 100 ea 5RF E11.65 - Type 2 diabetes mellitus with hyperglycemia Coding Level of Care Code Est Pt Level 4 (78470) Diagnoses Mixed dyslipidemia E78.2 Essential hypertension I10 Diabetes mellitus with hyperglycemia, without long-term current use of insulin E11.65
== END 2023-09-12 16:16 | disposition home or self-care (01) ==
PROVIDERS: PCP Internal Medicine; Visit Provider Internal Medicine
DX: E78.2 Mixed hyperlipidemia (principal); I10 Essential (primary) hypertension; E11.65 Type 2 diabetes mellitus with hyperglycemia
CPT/HCPCS: 99214

== ENCOUNTER 2024-01-21 07:38 | Outpatient (REF) | payer BC, SELFPAY ==
[2024-01-21 10:41] LABS: Alanine Aminotransferase 39 U/L (0-40); Anion Gap 12 (12-20); Aspartate Amino Transferase 30 U/L (5-37); Blood Urea Nitrogen 16 mg/dL (9-16); Calcium 9.6 mg/dL (8.4-10.2); Carbon Dioxide 27 mmol/L (22-29); Chloride 105 mmol/L (96-108); Cholesterol 122 mg/dL (<200); Estimated Glomerular Filt Rate > 60; Glucose Fasting 157 mg/dL (60-99); HDL Cholesterol 30 mg/dL (>40); LDL Cholesterol Calculated 72 mg/dL (<100); Sodium 140 mmol/L (135-145); Triglycerides 103 mg/dL (<150)
[2024-01-21 11:03] LABS: Estimated Average Glucose 192 mg/dL; Hemoglobin A1C 276.4385 umol/L; Hemoglobin A1c % 8.3 % (<6.0); Total Hemoglobin (HGBA1C) 4114.8807 umol/L
== END 2024-01-21 07:39 | disposition home or self-care (01) ==
LOC: HO.HMGCLDS 07:38
PROVIDERS: PCP Internal Medicine; Visit Provider Internal Medicine
DX: E11.9 Type 2 diabetes mellitus without complications (principal); I10 Essential (primary) hypertension; E78.2 Mixed hyperlipidemia
CPT/HCPCS: 36415; 80048; 80061; 83036; 84450; 84460

== ENCOUNTER 2024-01-23 15:03 | Outpatient (AMB) | payer BC, SELFPAY ==
[2024-01-23 15:39] VITALS: BP 148/80; PULSE 74; O2SAT 97; BMI 35.2
--- NOTE | 2024-01-23 15:39 | MHC.PC.OV ---
Vital Signs 01/23/24 15:39 Height 5 ft 10 in Weight 245 lb BMI 35.2 BP 148/80 H Blood Pressure Location Lt brachial Position Sitting Pulse 74 Pulse Source Pulse Oximeter Pulse Oximetry (%) 97 Oxygen Delivery Method Room Air Intake Visit Reasons: follow up dm Intake Note: Pt is here today for his f/u DM Allergies No Known Allergies Allergy (Verified 01/23/24 16:00) Medication List - Last Reconciled 01/23/24 by Jeanna Harris MD apixaban (Eliquis) 5 mg PO BID 90 days atorvastatin 80 mg PO DAILY blood sugar diagnostic (Contour Next Test Strips) Test blood sugar once a day blood-glucose meter (Contour Next Meter) Check fasting blood sugar twice a day before meals lancets (FreeStyle Lancets) Check fasting blood sugar twice a day as directed lisinopril 20 mg PO DAILY [Massage therapy Recommended therapeutic massage at least twice a month, lasting an hour each] metformin 1,000 mg PO BID metoprolol succinate ER 25 mg See Protocol PO BID 90 days Tobacco use date assessed: 01/23/24 Dental Screening Dental Screen Date: 01/23/24 Did you have a dental visit in the last 12 months?: Yes Did you have a dental problem in the last 6 months where you did not have access to dental care?: Yes Was dental information given to patient?: Patient has dentist HPI follow up dm HPI Details 63-year-old male here today for follow-up on his diabetes mellitus. Currently taking metformin 1000 mg 1 tablet twice a day , sometimes forgets to take his medicine and dietary compliance still remains an issue. Mostly sedentary, no exercise at all. Latest fasting labs showed hemoglobin A1c at 8.3%, with normal fasting lipids except for low HDL at 30, and normal electrolytes and renal function. Negative for microalbuminuria. 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 Sister No problems noted. Son No problems noted. Daughter No problems noted. 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 1. Little interest or pleasure in doing things: not at all 2. Feeling down, depressed, or hopeless: not at all 3. Trouble falling or staying asleep, or sleeping too much: not at all 4. Feeling tired or having little energy: not at all 5. Poor appetite or overeating: not at all 6. Feeling bad about yourself - or that you are a failure or have let yourself or your family down: not at all 7. Trouble concentrating on things, such as reading the newspaper or watching television: not at all 8. Moving or speaking so slowly that other people could have noticed. Or the opposite - being so fidgety or restless that you have been moving around a lot more than usual: not at all 9. Thoughts that you would be better off or of hurting yourself in some way: not at all Total score: 0 Depression Screening Interpretation: Negative Depression Screening Done: Yes 95762 - PHQ-9 Billing: Yes Source: Developed by Drs. Leo Moore, Awa Joaquin, Mychal Peter and colleagues, with an educational rigo from [employer]. Thrive Questionnaire Date Thrive assessed: 01/23/24 I am a: Patient What is your living situation today?: I have a steady place to live Within the past 12 months, did the food you bought not last and you didn't have the money to get more?: Never true Within the past 12 months, did you worry whether your food would run out before you got money to buy more?: Never true Do you have trouble paying for medicines?: No Do you have trouble getting transportation to medical appointments?: No Do you have trouble paying your heating and electricity bill?: No Do you have trouble taking care of your child, family member or friend?: No Do you have trouble with day-to-day activities such as bathing, preparing meals, shopping, managing finances, etc.?: No Are you currently unemployed and looking for a job?: No Are you interested in more education?: No Please select the resources that you would like help with: Food Currently or been in a relationship where the following occur: No concerns reported THRIVE Score: 0 AUDIT C Alcohol Use Questionnaire (AUDIT-C) 1. How often do you have a drink containing alcohol?: 2-4 times a month 2. How many drinks containing alcohol do you have on a typical day when you are drinking?: 1 or 2 3. How often do you have six or more drinks on one occasion?: Never Total Score: 2 BITA-7 AMB Questionnaire BITA-7 Date BITA - 7 assessed: 01/23/24 Feeling nervous, anxious, or on edge: 0 = Not at all Not being able to stop or control worryin = Not at all Worrying too much about different things: 0 = Not at all Trouble relaxin = Not at all Being so restless that it is hard to sit still: 0 = Not at all Becoming easily annoyed or irritable: 0 = Not at all Feeling afraid as if something awful might happen: 0 = Not at all Total BITA-7 score (0-4 normal; 5-9 mild; 10-14 moderate; 15-21 severe): 0 Source: Developed by Drs. Leo Moore, Awa Joaquin, Mychal Peter and colleagues, with an educational rigo from [employer] BITA-7 Assessment Billing BITA-7 Assessment Tool: BITA-7 Assessment 77876 Review of Systems Const Reports no additional complaints Eyes Details: overdue for diabetes retinopathy screen Denies change in vision ENT Reports no additional complaints Card Denies chest pain, Denies chest pain with activity, Denies edema, Denies lightheadedness, Denies dyspnea and Denies dyspnea on exertion Resp Denies cough, Denies dyspnea and Denies dyspnea on exertion GI Denies abdominal pain, Denies melena, Denies bloating, Denies hematochezia, Denies change in bowel habits, Denies change in stool character and Denies heartburn Reports no additional complaints Musc Denies abnormal gait, Denies muscle cramps, Denies muscle weakness, Denies numbness, Denies radiating pain into limb and Denies tingling Skin/Breast Denies dry skin and Denies lesions Neuro Denies abnormal gait, Denies numbness, Denies Sensory deficit (Neuro) and Denies tingling Endo Reports no additional complaints Physical exam (Primary Care) Vital Signs: Last Vital Signs Pulse 74 01/23/24 15:39 BP 148/80 H 01/23/24 15:39 Pulse Ox 97 01/23/24 15:39 Oxygen Delivery Method Room Air 01/23/24 15:39 BMI result Body Mass Index 35.2 BMI Assessment/Plan discussion: High BMI High, discussed plan: lifestyle, weight reduction, dietary and physical activity Tobacco/Smoking Status: Tobacco use Status Tobacco use date assessed 01/23/24 01/23/24 15:44 Patient Tobacco Use Status Former Tobacco user 01/23/24 15:39 Tobacco use type Cigarette 01/23/24 15:39 e-Cigarette/Vaping Use Never Used 01/23/24 15:39 PHQ-9: PHQ-9 Score PHQ-9: Total score 0 01/23/24 16:35 Depression Screening Interpretation: Negative Thrive Assessment: Date of Thrive Assessment Date Thrive assessed 01/23/24 01/23/24 15:44 Currently or been in a relationship where the following occur: No concerns reported Const General: no acute distress Nutritional Appearance: obese Orientation/consciousness: patient oriented x3 HENMT Ears: external ears normal, TM's normal bilaterally and EAC's normal General nose exam: Normal external nose present Mouth: oropharynx normal and moist mucous membranes Eyes General: appearance normal, both eyes and all related structures Neck Neck: Yes full ROM, Yes no lymphadenopathy and Yes supple Resp Effort & Inspection: normal respiratory effort and able to speak in complete sentences Auscultation: clear to auscultation bilaterally Cardio Rate: regular rate Rhythm: regular rhythm Heart sounds: S1 normal heart sound present and S2 normal heart sound present GI Inspection: Yes obesity Palpation (GI): Soft to palpation, nontender and no masses Auscultation: normal bowel sounds Skin General skin exam: no rashes or lesions noted Neuro General: patient oriented x3, gait normal, tone normal, moves all extremities, Normal light touch and pain sensation and no focal motor deficits Cranial nerves: Yes CN's II-XII intact bilaterally Cognition (Neuro): normal cognition Sensory Exam: No Sensory deficit (Neuro) Extrem General: Yes full ROM, Yes no joint enlargement, Yes no clubbing, cyanosis or edema and Yes no calf tenderness Office Procedures Flu Questionnaire Does the patient have a severe egg allergy?: No Does the patient have severe life threatening allergies?: No Does the patient have a fever or illness today?: No Has the patient ever had Guillain-[place] Syndrome?: No Has the patient ever had any past reaction to a flu shot?: No Immunizations Fluarix Triv [id number] (PF) 45 mcg (15 mcg x 3)/0.5 mL IM syringe Performing Provider: Jeanna Harris MD [place] [facility] Administered by: Pamela Diaz CMA on 01/23/24 16:34 Dose Route Admin Location Dispensed Lot Number Expiration Date [facility] Bike Designer 0.5 mL IM Right Deltoid 0.5 mL [id number] 09/28/24 [id number] [place] VIS Given Date VIS Provided VIS Publication Date 01/23/24 Single Vaccine 20 Eligibility Eligibility Date Funding Source Not [facility] Eligible 01/23/24 Private Results Reviewed Results Reviewed: Laboratory Tests 01/21/24 07:41 Estimat Average Glucose 192 Hemoglobin A1c % 8.3 H me: Hema Ramires Age/Sex: 63/M : 1960 Unit#: [id number] Attend Dr: Jeanna Harris MD Re01/21/24 Status: DEP REF Location: [facility] Disch: SPEC : [id number] DANTE: 01/21/24 STATUS: COMP REQ : [id number] RECD: 01/21/[address]: Jeanna Harris MD COMP: 01/21/241041 ENTERED: 01/21/24 [facility] DR: ORDERED: Met Prof Fast, AST, ALT, Lipid Panel Test Result Flag Reference Sodium 140 135-145 mmol/L Potassium 4.0 3.3-5.1 mmol/L CL 105 96-108 mmol/L CO2 27 22-29 mmol/L Gap 12 12-20 BUN 16 9-16 mg/dL Creat 1.00 0.5-1.4 mg/dL EGFR > 60 NOTE: For -[place]ong[place] individuals, multiply the result by 1.210. Chronic Kidney Disease: Estimated GFR < 60 mL/min/1.73m2 Severe Kidney Disease: Estimated GFR < 15 mL/min/1.73m2 FBS 157 H 60-99 mg/dL A fasting glucose of 126 mg/dl or greater on more than one occasion is considered diagnostic of diabetes. CA 9.6 8.4-10.2 mg/dL AST (GOT) 30 5-37 U/L ALT (GPT) 39 0-40 U/L Triglyceride 103 <150 mg/dL Desirable Triglyceride: less than 150 mg/dL Borderline High Triglyceride 150-199 mg/dL High Triglyceride: 200-499 mg/dL Very High Triglyceride: greater than or equal to 5OO mg/dL Cholesterol 122 <200 mg/dL Desirable Cholesterol: less than 200 mg/dL Borderline High Cholesterol: 200-239 mg/dL High Cholesterol: greater than 239 mg/dL LDL Calculated 72 <100 mg/dL Desirable LDL: less than 100 mg/dL Near Optimal/Above Optimal LDL: 110-129 mg/dL Borderline High LDL: 130-159 mg/dL High LDL: 160-189 mg/dL Very High LDL: greater than or equal to 190 mg/dL HDL 30 L >40 mg/dL Desirable HDL: greater than 40 mg/dL Note: This HDL assay may give artificially low results in patients with liver disease. Coding Level of Care Code Est Pt Level 4 (40610) Complex EM visit Add On G2211 Diagnoses Diabetes mellitus with hyperglycemia, without long-term current use of insulin E11.65 Mixed dyslipidemia E78.2 Additional Codes BITA-7 Assessment Billing - BITA-7 Assessment Tool: BITA-7 Assessment 16640 ([id number]) Assessment & Plan Assessment & Plan (1) Diabetes mellitus with hyperglycemia, without long-term current use of insulin: Code(s): E11.65 - Type 2 diabetes mellitus with hyperglycemia Category: Medical Plan: Continue metformin 1000 mg 1 tablet twice a day with meals. Will start on Mounjaro 2.5 mg injected subcutaneously once a week. Rotate sites of use, discussed possible side effects of medication, have a bland diet when taking the injection. Referred to diabetic nurse for guidance with using the injection and for diabetic diet recommendation. flu vaccine given today (2) Mixed dyslipidemia: Code(s): E78.2 - Mixed hyperlipidemia Category: Medical Plan: Reviewed recent fasting lipid profile with patient with levels within normal limits except for low good cholesterol . Continue atorvastatin 80 mg daily , in addition to adherence to low-cholesterol diet and regular exercise, at least 30 minutes 3 to 4 times a week. Advised patient to make healthy food choices, eat more fruits, vegetables, whole grains, wild caught fish and low-fat dairy. Limit amount of meat and fried or fatty food products, as well as processed foods and fast foods. Follow-up scheduled with repeat fasting lipid panel in 3 months. Orders: Orders Alanine Aminotransferase 04/17/24 E11.65 - Type 2 diabetes mellitus with hyperglycemia, E78.2 - Mixed hyperlipidemia, I10 - Essential (primary) hypertension Aspartate Amino Transferase 04/17/24 E11.65 - Type 2 diabetes mellitus with hyperglycemia, E78.2 - Mixed hyperlipidemia, I10 - Essential (primary) hypertension Influenza [id number] Immunization 01/23/24 Z23 - Encounter for immunization Hemoglobin A1c 04/17/24 E11.65 - Type 2 diabetes mellitus with hyperglycemia, E78.2 - Mixed hyperlipidemia, I10 - Essential (primary) hypertension Basic Metabolic Panel Fasting 04/17/24 E11.65 - Type 2 diabetes mellitus with hyperglycemia, E78.2 - Mixed hyperlipidemia, I10 - Essential (primary) hypertension Lipid Panel 04/17/24 E11.65 - Type 2 diabetes mellitus with hyperglycemia, E78.2 - Mixed hyperlipidemia, I10 - Essential (primary) hypertension Microalbumin, Random (w Creat) 04/17/24 E11.65 - Type 2 diabetes mellitus with hyperglycemia, E78.2 - Mixed hyperlipidemia, I10 - Essential (primary) hypertension Medications: New Mounjaro (tirzepatide) for 4 weeks 2.5 mg (0.5 mL) subcut QWEEK 2 mL 1RF NS E11.65 - Type 2 diabetes mellitus with hyperglycemia Refilled metformin 1,000 mg PO BID 180 tabs 3RF
== END 2024-01-23 16:54 | disposition home or self-care (01) ==
PROVIDERS: PCP Internal Medicine; Visit Provider Internal Medicine
DX: E11.65 Type 2 diabetes mellitus with hyperglycemia (principal); E78.2 Mixed hyperlipidemia

== ENCOUNTER → 2024-01-23 15:03 | Outpatient (BNVA) | payer BC, SELFPAY | PROVIDERS: PCP Internal Medicine; Visit Provider Internal Medicine | DX: E11.65 Type 2 diabetes mellitus with hyperglycemia (principal); E78.2 Mixed hyperlipidemia; Z79.84 Long term (current) use of oral hypoglycemic drugs; Z79.899 Other long term (current) drug therapy; Z23 Encounter for immunization | CPT/HCPCS: 90471; 90656; 96127 ==

== ENCOUNTER → 2024-01-31 14:46 | Outpatient (BNVA) | payer BC, SELFPAY | PROVIDERS: PCP Internal Medicine ==

== ENCOUNTER 2024-03-05 11:15 | Outpatient (REF) | payer BC, SELFPAY | END 2024-03-05 11:16 | disposition home or self-care (01) | LOC: HO.HMGCX 11:15 | PROVIDERS: PCP Internal Medicine; Visit Provider Internal Medicine | DX: M25.511 Pain in right shoulder (principal); M25.512 Pain in left shoulder | CPT/HCPCS: 73030 ==

== ENCOUNTER 2024-03-05 11:15 | Outpatient (AMB) | payer BC, SELFPAY ==
[2024-03-05 11:18] VITALS: BP 138/70; PULSE 89; O2SAT 97; BMI 35.3
--- NOTE | 2024-03-05 11:18 | A.OFFPC_ITS ---
Vital Signs 03/05/24 11:18 Height 5 ft 10 in Weight 246 lb 4 oz BMI 35.3 BP 138/70 Blood Pressure Location Lt brachial Position Sitting Pulse 89 Pulse Source Pulse Oximeter Pulse Oximetry (%) 97 Oxygen Delivery Method Room Air Intake Visit Reasons: follow up/ PT referral Intake Note: Pt is here today for a follow up and pt referral. Allergies No Known Allergies Allergy (Verified 03/05/24 12:52) Medication List - Last Reconciled 03/05/24 by Jeanna Harris MD apixaban (Eliquis) 5 mg PO BID 90 days atorvastatin 80 mg PO DAILY blood sugar diagnostic (Contour Next Test Strips) Test blood sugar once a day blood-glucose meter (Contour Next Meter) Check fasting blood sugar twice a day before meals lancets (FreeStyle Lancets) Check fasting blood sugar twice a day as directed lisinopril 20 mg PO DAILY [Massage therapy Recommended therapeutic massage at least twice a month, lasting an hour each] metformin 1,000 mg PO BID metoprolol succinate ER 25 mg See Protocol PO BID 90 days Ozempic (semaglutide) 0.25 mg (0.368 mL) subcut QWEEK 30 days NS Tobacco use date assessed: 03/05/24 Dental Screening Dental Screen Date: 03/05/24 Did you have a dental visit in the last 12 months?: Yes Did you have a dental problem in the last 6 months where you did not have access to dental care?: No Was dental information given to patient?: Patient has dentist HPI follow up/ PT referral HPI Details The patient is a 63-year-old male presenting with bilateral shoulder pain, primarily affecting the shoulders and upper back. 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 This repetitive lifting seems to have taken a toll over time. The shoulder pain is described as possibly arthritic in nature. The patient has not undergone any prior x-rays for his back but confirms shoulder pain as the primary issue. Massage therapy has been used for relief, focusing on the shoulders and upper back, with the patient noting some soreness in the lower back, although not as intense as the shoulder pain. Previous documentation refers to therapeutic massage as being recommended for managing his condition. 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 Sister No problems noted. Son No problems noted. Daughter No problems noted. 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 Current occupational exposures/hazards: Yes Cognitive needs: No Hearing needs: No Vision needs: Yes Questionnaire Thrive Questionnaire Date Thrive assessed: 03/05/24 I am a: Patient What is your living situation today?: I have a steady place to live Within the past 12 months, did the food you bought not last and you didn't have the money to get more?: Never true Within the past 12 months, did you worry whether your food would run out before you got money to buy more?: Never true Do you have trouble paying for medicines?: No Do you have trouble getting transportation to medical appointments?: No Do you have trouble paying your heating and electricity bill?: No Do you have trouble taking care of your child, family member or friend?: No Do you have trouble with day-to-day activities such as bathing, preparing meals, shopping, managing finances, etc.?: No Are you currently unemployed and looking for a job?: No Are you interested in more education?: No Please select the resources that you would like help with: Food Currently or been in a relationship where the following occur: No concerns reported THRIVE Score: 0 AUDIT C Alcohol Use Questionnaire (AUDIT-C) 1. How often do you have a drink containing alcohol?: 2-4 times a month 2. How many drinks containing alcohol do you have on a typical day when you are drinking?: 1 or 2 3. How often do you have six or more drinks on one occasion?: Never Total Score: 2 Score Reviewed/Action Taken: Yes BITA-7 AMB Questionnaire BITA-7 Date BITA - 7 assessed: 01/23/24 Source: Developed by Drs. Leo Moore, Awa Joaquin, Mychal Peter and colleagues, with an educational rigo from [employer]. Review of Systems Const All systems reviewed & are unremarkable except as noted in HPI and below Neuro Denies Sensory deficit (Neuro) Physical exam (Primary Care) Vital Signs: Last Vital Signs Pulse 89 03/05/24 11:18 BP 138/70 03/05/24 11:18 Pulse Ox 97 03/05/24 11:18 Oxygen Delivery Method Room Air 03/05/24 11:18 BMI result Body Mass Index 35.3 Tobacco/Smoking Status: Tobacco use Status Tobacco use date assessed 03/05/24 03/05/24 11:20 Patient Tobacco Use Status Former Tobacco user 03/05/24 11:20 Tobacco use type Cigarette 03/05/24 11:20 e-Cigarette/Vaping Use Never Used 03/05/24 11:20 Thrive Assessment: Date of Thrive Assessment Date Thrive assessed 03/05/24 03/05/24 11:20 Currently or been in a relationship where the following occur: No concerns r eported Const General: no acute distress Nutritional Appearance: obese Orientation/consciousness: patient oriented x3 Neck Neck: Yes full ROM, Yes no lymphadenopathy and Yes supple Resp Effort & Inspection: normal respiratory effort and able to speak in complete sentences Auscultation: clear to auscultation bilaterally Cardio Rate: regular rate Rhythm: regular rhythm Heart sounds: S1 normal heart sound present and S2 normal heart sound present Neuro General: patient oriented x3, gait normal, tone normal, moves all extremities, Normal light touch and pain sensation and no focal motor deficits Cranial nerves: Yes CN's II-XII intact bilaterally Cognition (Neuro): normal cognition Sensory Exam: No Sensory deficit (Neuro) Extrem General: Yes full ROM, Yes no joint enlargement, Yes no clubbing, cyanosis or edema and Yes no calf tenderness Coding Level of Care Code Est Pt Level 3 (16979) Diagnoses Chronic pain of both shoulders M25.511; M25.512; G89.29 Chronicity: chronic Assessment & Plan Assessment & Plan (1) Shoulder pain, bilateral: Code(s): M25.511 - Pain in right shoulder; M25.512 - Pain in left shoulder Category: Medical Qualifiers: Chronicity: chronic Qualified Code(s): M25.511 - Pain in right shoulder; M25.512 - Pain in left shoulder; G89.29 - Other chronic pain Plan - Bilateral shoulder pain and possible arthritis: I have ordered x-rays for both shoulders to evaluate the joint structures and rule out arthritis. The results will guide further management and documentation for insurance purposes. - Upper back pain: No further diagnostic testing ordered at this time as the primary complaint is related to shoulder issues. Therapeutic massage will continue to be part of the management strategy due to its effectiveness in pain relief. Letter done Indicating The need for therapeutic massages for this patient in order which has been helping relieve his bilateral shoulder pain - Proceed to obtain shoulder x-rays as ordered. - Continue therapeutic massage sessions twice a month for pain management. - Monitor shoulder pain and report any exacerbations or new symptoms. - Maintain current Ozumbic regimen for weight management. - Follow up once x-ray results are available for further discussion and management. Patient was informed and verbally consented to the use of an ambient scribe for clinic note documentation during this visit. Orders: Orders XR shoulder LT min 2V Today M25.511 - Pain in right shoulder, M25.512 - Pain in left shoulder XR shoulder RT min 2V Today M25.511 - Pain in right shoulder, M25.512 - Pain in left shoulder
== END 2024-03-05 12:01 | disposition home or self-care (01) ==
PROVIDERS: PCP Internal Medicine; Visit Provider Internal Medicine
DX: M25.511 Pain in right shoulder (principal); M25.512 Pain in left shoulder; G89.29 Other chronic pain

== ENCOUNTER 2024-04-17 09:07 | Outpatient (REF) | payer BC, SELFPAY ==
[2024-04-17 10:34] LABS: Estimated Average Glucose 140 mg/dL; Hemoglobin A1C 185.1422 umol/L; Hemoglobin A1c % 6.5 % (<6.0)
[2024-04-17 10:51] LABS: Alanine Aminotransferase 39 U/L (0-40); Anion Gap 8 (12-20); Aspartate Amino Transferase 26 U/L (5-37); Blood Urea Nitrogen 13 mg/dL (9-16); Calcium 8.8 mg/dL (8.4-10.2); Carbon Dioxide 27 mmol/L (22-29); Chloride 108 mmol/L (96-108); Cholesterol 90 mg/dL (<200); Estimated Glomerular Filt Rate > 60; Glucose Fasting 115 mg/dL (60-99); HDL Cholesterol 28 mg/dL (>40); LDL Cholesterol Calculated 53 mg/dL (<100); Potassium 4.3 mmol/L (3.3-5.1); Sodium 139 mmol/L (135-145); Triglycerides 49 mg/dL (<150)
[2024-04-17 11:01] LABS: Microalbum/Creatinine Ratio Ur 9.8 ug/mg cr (<30)
== END 2024-04-17 09:08 | disposition home or self-care (01) ==
LOC: HO.HMGCLDS 09:07
PROVIDERS: PCP Internal Medicine; Visit Provider Internal Medicine
DX: E11.65 Type 2 diabetes mellitus with hyperglycemia (principal); I10 Essential (primary) hypertension; E78.2 Mixed hyperlipidemia
CPT/HCPCS: 36415; 80048; 80061; 82043; 82570; 83036; 84450; 84460

== ENCOUNTER → 2024-04-23 15:56 | Outpatient (BNVA) | payer BC, SELFPAY | PROVIDERS: PCP Internal Medicine; Visit Provider Internal Medicine | DX: E11.9 Type 2 diabetes mellitus without complications (principal); E78.2 Mixed hyperlipidemia; I10 Essential (primary) hypertension; E66.01 Morbid (severe) obesity due to excess calories; Z68.36 Body mass index [BMI] 36.0-36.9, adult; Z79.84 Long term (current) use of oral hypoglycemic drugs; Z79.899 Other long term (current) drug therapy | CPT/HCPCS: 96127 ==

== ENCOUNTER 2024-08-12 15:00 | Outpatient (AMB) | payer BC, SELFPAY ==
[2024-08-12 15:04] VITALS: BP 128/70; PULSE 73; BMI 32.6
--- NOTE | 2024-08-12 15:04 | A.OFFVIS_ITS ---
Vital Signs 08/12/24 15:04 Height 5 ft 10 in Weight 227 lb 1.218 oz BMI 32.6 BP 128/70 Blood Pressure Location Lt brachial Position Sitting Pulse 73 Pulse Source Monitor Intake Visit Reasons: 1 yr f/up Allergies No Known Allergies Allergy (Verified 04/23/24 16:51) Medication List - Last Reconciled 08/12/24 by Sanket Valadez MD apixaban (Eliquis) 5 mg PO BID 90 days atorvastatin 80 mg PO DAILY blood sugar diagnostic (Contour Next Test Strips) Test blood sugar once a day blood-glucose meter (Contour Next Meter) Check fasting blood sugar twice a day before meals lancets (FreeStyle Lancets) Check fasting blood sugar twice a day as directed lisinopril 20 mg PO DAILY NS [Massage therapy Recommended therapeutic massage at least twice a month, lasting an hour each] metformin 1,000 mg PO BID metoprolol succinate ER 25 mg See Protocol PO BID 90 days Ozempic (semaglutide) 0.25 mg (0.368 mL) subcut QWEEK 30 days NS HPI Comments Details: Hema returns for follow-up. In 2021, he had symptomatic atrial flutter with rapid rate. Underwent BARB/cardioversion. Echocardiogram then showed cardiomyopathy, but recovered completely after sinus rhythm was restored. He did well after that. Brief use of Multaq, but then he has been only on beta- blockers after that. Also on anticoagulation. Overall, he feels good. No cardiac symptoms. He is asking about stopping some of his medications. [facility] Medical History (Updated 04/23/24 @ 17:02 by Jeanna Harris MD) Type 2 diabetes mellitus without complication, without long-term current use of insulin Hx of adenomatous polyp of colon History of cardioversion History of transesophageal echocardiography (BARB) Hx of atrial flutter Shoulder pain, bilateral Diabetes mellitus with hyperglycemia, without long-term current use of insulin LANCE (obstructive sleep apnea) Current use of retirement anticoagulation COVID-19 vaccination refused Incomplete right bundle branch block History of COVID-19 Essential hypertension Depression Mixed dyslipidemia Urethral stricture Surgical History No pertinent past surgical history Family History Father Diabetes mellitus Smoker High cholesterol Mother Cirrhosis Brother No problems noted. Sister No problems noted. Son No problems noted. Daughter No problems noted. 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 Current occupational exposures/hazards: Yes Cognitive needs: No Hearing needs: No Vision needs: Yes Review of Systems Const Denies weakness ENT Denies dizziness Card Denies chest pain, Denies chest pain with activity, Denies syncope, Denies rapid heart rate, Denies pedal edema, Denies edema, Denies leg edema, Denies lightheadedness, Denies palpitations, Denies dyspnea, Denies dyspnea on exertion and Denies orthopnea Resp Denies cough, Denies dyspnea and Denies dyspnea on exertion GI Denies hematochezia and Denies change in stool character Musc Denies abnormal gait, Denies muscle cramps, Denies muscle weakness, Denies numbness, Denies radiating pain into limb and Denies tingling Neuro Denies abnormal gait, Denies dizziness, Denies syncope, Denies numbness, Denies tingling and Denies weakness Endo Denies palpitations Physical Exam Vital Signs: Last Vital Signs Pulse 73 08/12/24 15:04 BP 128/70 08/12/24 15:04 BMI result Body Mass Index 32.6 Const General: comfortable and no acute distress Orientation/consciousness: patient oriented x3 HEENT Other: Unremarkable Head: Yes normal to inspection Neck Neck: Yes normal visual inspection Chest Chest palpation & inspection: normal inspection of the chest Resp Auscultation: clear to auscultation bilaterally Cardio Palpation: normal PMI Heart sounds: S1 normal heart sound present, S2 normal heart sound present, no gallops, no murmurs and no rubs GI Palpation (GI): Soft to palpation Back/Spine/Pelvis Other: unremarkable Skin General skin exam: no rashes or lesions noted Neuro General: patient oriented x3 Extrem General: Yes normal to inspection Psych Mental Status: mental status grossly normal Office Procedures EKG Details: EKG with underlying sinus rhythm at 73/Min; no ischemic changes; [place] [id number], Complete Assessment & Plan Assessment & Plan (1) Paroxysmal atrial flutter: Code(s): I48.92 - Unspecified atrial flutter Category: Medical Plan: History of cardioversion 2021 but stable since. He would like to cut back on his medications. He feels some sexual dysfunction possibly related to beta-blockers and hence we can cut back on that. With regard to anticoagulation, he would like to again cut back. We discussed about pros and cons of this. As he has not had any atrial arrhythmias for almost 2 years now and otherwise quite stable the risk of stroke is quite low and hence a decision was made to stop. If indeed he gets any recurrent arrhythmias, we will need to resume. We discussed at length about these issues including continuing anticoagulation versus stopping. He understands the benefits and risks of each approach. Eventually, he felt that he would rather be off the anticoagulation. (2) CAD (coronary artery disease): Code(s): I25.10 - Atherosclerotic heart disease of [place] coronary artery without angina pectoris Category: Medical Plan: Coronary CTA 2022 shows mild LAD disease, but otherwise unremarkable. Mainly, risk factor modification. On statins. Plan Discussion Notes I reviewed the benefits and risks of discontinuing anticoagulant therapy with the patient given his stable cardiac condition over the past two years and his request to stop some medications. We discussed the low but possible stroke risk off blood thinners. He was informed about the significance of adherence to the adjusted regimen for monitoring potential symptomatic changes. The patient consented to the discussed plan, appreciating the reduced medication burden. A follow-up in six months was recommended to assess this modified approach. Patient was informed and verbally consented to the use of an ambient scribe for clinic note documentation during this visit. Medications: New metoprolol succinate ER (Toprol XL) 25 mg PO DAILY 90 tabs 3RF Discontinued metoprolol succinate ER Discontinued Reason: Doctor's Order 25 mg See Protocol PO BID 90 days 180 tabs 3RF apixaban (Eliquis) Discontinued Reason: Doctor's Order 5 mg PO BID 90 days 180 tabs 3RF Patient Instructions: - Monitor for symptoms like dizziness or breathlessness or any other cardiac symptoms. - Maintain regular physical activity and report any changes. - Follow up in six months to evaluate medication changes. Coding Level of Care Code Est Pt Level 4 (68342) Complex EM visit Add On G2211 Diagnoses Paroxysmal atrial flutter I48.92 CAD (coronary artery disease) I25.10 CPT Codes EKG - CPT: 26639-[id number], Complete ([id number])
== END 2024-08-12 15:48 | disposition home or self-care (01) ==
LOC: HO.HCS 15:01
PROVIDERS: PCP Internal Medicine; Visit Provider Internal Medicine
DX: I48.92 Unspecified atrial flutter (principal); I25.10 Atherosclerotic heart disease of native coronary artery without angina pectoris
CPT/HCPCS: 93010; 99214

== ENCOUNTER → 2024-08-12 15:00 | Outpatient (BNVA) | payer BC, SELFPAY | PROVIDERS: PCP Internal Medicine; Visit Provider Internal Medicine | DX: I48.92 Unspecified atrial flutter (principal); I25.10 Atherosclerotic heart disease of native coronary artery without angina pectoris; Z79.01 Long term (current) use of anticoagulants; Z79.899 Other long term (current) drug therapy | CPT/HCPCS: 93005 ==

== ENCOUNTER 2024-08-17 06:38 | Outpatient (REF) | payer BC, SELFPAY ==
[2024-08-17 10:38] LABS: Estimated Average Glucose 128 mg/dL; Hemoglobin A1C 166.8093 umol/L; Hemoglobin A1c % 6.1 % (<6.0)
[2024-08-17 10:47] LABS: Alanine Aminotransferase 32 U/L (0-40); Anion Gap 12 (12-20); Aspartate Amino Transferase 23 U/L (5-37); Blood Urea Nitrogen 15 mg/dL (9-16); Calcium 8.7 mg/dL (8.4-10.2); Carbon Dioxide 25 mmol/L (22-29); Chloride 104 mmol/L (96-108); Cholesterol 111 mg/dL (<200); Estimated Glomerular Filt Rate > 60; Glucose Fasting 138 mg/dL (60-99); HDL Cholesterol 32 mg/dL (>40); LDL Cholesterol Calculated 64 mg/dL (<100); Sodium 137 mmol/L (135-145); Triglycerides 78 mg/dL (<150)
== END 2024-08-17 06:39 | disposition home or self-care (01) ==
LOC: HO.HMGCLDS 06:38
PROVIDERS: PCP Internal Medicine; Visit Provider Internal Medicine
DX: E11.9 Type 2 diabetes mellitus without complications (principal); E66.01 Morbid (severe) obesity due to excess calories; Z68.36 Body mass index [BMI] 36.0-36.9, adult; I10 Essential (primary) hypertension; E78.2 Mixed hyperlipidemia
CPT/HCPCS: 36415; 80048; 80061; 83036; 84450; 84460

== ENCOUNTER 2024-08-27 15:56 | Outpatient (AMB) | payer BC, SELFPAY ==
[2024-08-27 16:46] VITALS: BP 134/60; PULSE 85; RESP 18; TEMP 36.7; O2SAT 97; BMI 33.0
--- NOTE | 2024-08-27 16:46 | A.OFFPC_ITS ---
Vital Signs 08/27/24 16:46 Height 5 ft 10 in Weight 230 lb BMI 33.0 BP 134/60 Blood Pressure Location Lt brachial Position Sitting Respiration 18 Pulse 85 Pulse Source Pulse Oximeter Temp 98.0 F Temp Source Oral Pulse Oximetry (%) 97 Oxygen Delivery Method Room Air Intake Visit Reasons: 4m follow up Intake Note: Pt is here today for his 4mo. f/u Allergies No Known Allergies Allergy (Verified 08/27/24 17:00) Medication List - Last Reconciled 08/27/24 by Jeanna Harris MD atorvastatin 80 mg PO DAILY blood sugar diagnostic (Contour Next Test Strips) Test blood sugar once a day blood-glucose meter (Contour Next Meter) Check fasting blood sugar twice a day before meals lancets (FreeStyle Lancets) Check fasting blood sugar twice a day as directed lisinopril 20 mg PO DAILY NS [Massage therapy Recommended therapeutic massage at least twice a month, lasting an hour each] metformin 1,000 mg PO BID metoprolol succinate ER (Toprol XL) 25 mg PO DAILY Ozempic (semaglutide) 0.25 mg (0.368 mL) subcut QWEEK 30 days NS Tobacco use date assessed: 08/27/24 Dental Screening Dental Screen Date: 08/27/24 Did you have a dental visit in the last 12 months?: Yes Did you have a dental problem in the last 6 months where you did not have access to dental care?: Yes Was dental information given to patient?: Patient has dentist HPI 4m follow up HPI Details 63-year-old male with diabetes mellitus, hypertension, obesity and dyslipidemia, here today for his follow-up. He has been feeling well, has lost weight on Ozempic, has more energy, feels better. No complaints at present time. He is up-to-date with his diabetes retinopathy screening [facility] Medical History (Updated 08/27/24 @ 17:10 by Jeanna Harris MD) Type 2 diabetes mellitus without complication, without long-term current use of insulin Hx of adenomatous polyp of colon History of cardioversion History of transesophageal echocardiography (BARB) Hx of atrial flutter Shoulder pain, bilateral Diabetes mellitus with hyperglycemia, without long-term current use of insulin LANCE (obstructive sleep apnea) Current use of group home anticoagulation COVID-19 vaccination refused Incomplete right bundle branch block History of COVID-19 Essential hypertension Depression Mixed dyslipidemia Urethral stricture Surgical History No pertinent past surgical history Family History Father Diabetes mellitus Smoker High cholesterol Mother Cirrhosis Brother No problems noted. Sister No problems noted. Son No problems noted. Daughter No problems noted. 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 1. Little interest or pleasure in doing things: not at all 2. Feeling down, depressed, or hopeless: not at all 3. Trouble falling or staying asleep, or sleeping too much: not at all 4. Feeling tired or having little energy: not at all 5. Poor appetite or overeating: not at all 6. Feeling bad about yourself - or that you are a failure or have let yourself or your family down: not at all 7. Trouble concentrating on things, such as reading the newspaper or watching television: not at all 8. Moving or speaking so slowly that other people could have noticed. Or the opposite - being so fidgety or restless that you have been moving around a lot more than usual: not at all 9. Thoughts that you would be better off or of hurting yourself in some way: not at all Total score: 0 Depression Screening Interpretation: Negative Depression Screening Done: Yes 57993 - PHQ-9 Billing: Yes Source: Developed by Drs. Leo Moore, Awa Joaquin, Mychal Peter and colleagues, with an educational riog from [employer]. Thrive Questionnaire Date Thrive assessed: 04/23/24 I am a: Patient What is your living situation today?: I have a steady place to live Within the past 12 months, did the food you bought not last and you didn't have the money to get more?: I choose not to answer this question Within the past 12 months, did you worry whether your food would run out before you got money to buy more?: I choose not to answer this question Do you have trouble paying for medicines?: No Do you have trouble getting transportation to medical appointments?: No Do you have trouble paying your heating and electricity bill?: No Do you have trouble taking care of your child, family member or friend?: No Do you have trouble with day-to-day activities such as bathing, preparing meals, shopping, managing finances, etc.?: No Are you currently unemployed and looking for a job?: I choose not to answer this question Are you interested in more education?: No Please select the resources that you would like help with: None Currently or been in a relationship where the following occur: I choose not to answer THRIVE Score: 0 AUDIT C Alcohol Use Questionnaire (AUDIT-C) 1. How often do you have a drink containing alcohol?: Never Total Score: 0 BITA-7 AMB Questionnaire BITA-7 Date BITA - 7 assessed: 04/23/24 Source: Developed by Drs. Leo Moore, Awa Joaquin, Mychal Peter and colleagues, with an educational rigo from [employer]. Review of Systems Const Reports no additional complaints Eyes Denies change in vision ENT Reports no additional complaints Card Denies chest pain, Denies chest pain with activity, Denies edema, Denies lightheadedness, Denies dyspnea and Denies dyspnea on exertion Resp Denies cough, Denies dyspnea and Denies dyspnea on exertion GI Denies abdominal pain, Denies hematochezia, Denies change in bowel habits, Denies change in stool character and Denies heartburn Reports no additional complaints Musc Denies abnormal gait, Denies muscle cramps, Denies muscle weakness, Denies numbness, Denies radiating pain into limb and Denies tingling Skin/Breast Denies dry skin and Denies lesions Neuro Denies abnormal gait, Denies numbness, Denies Sensory deficit (Neuro) and Denies tingling Psych Reports no additional complaints Endo Reports no additional complaints Physical exam (Primary Care) Vital Signs: Last Vital Signs Temp 98.0 F 08/27/24 16:46 Pulse 85 08/27/24 16:46 Resp 18 08/27/24 16:46 BP 134/60 08/27/24 16:46 Pulse Ox 97 08/27/24 16:46 Oxygen Delivery Method Room Air 08/27/24 16:46 BMI result Body Mass Index 33.0 Tobacco/Smoking Status: Tobacco use Status Tobacco use date assessed 08/27/24 08/27/24 16:56 Patient Tobacco Use Status Former Tobacco user 08/27/24 16:49 Tobacco use type Cigarette 08/27/24 16:49 e-Cigarette/Vaping Use Never Used 08/27/24 16:49 Depression Screening Interpretation: Negative Thrive Assessment: Date of Thrive Assessment Date Thrive assessed 04/23/24 08/27/24 16:49 Currently or been in a relationship where the following occur: I choose not to answer Const General: no acute distress Nutritional Appearance: obese Orientation/consciousness: patient oriented x3 HENMT Mouth: Normal oral and palatal mucosa present, oropharynx normal and moist mucous membranes Eyes General: appearance normal, both eyes and all related structures Neck Neck: Yes full ROM, Yes no lymphadenopathy and Yes supple Resp Effort & Inspection: normal respiratory effort and able to speak in complete sentences Auscultation: clear to auscultation bilaterally Cardio Rate: regular rate Rhythm: regular rhythm Heart sounds: S1 normal heart sound present and S2 normal heart sound present GI Palpation (GI): Soft to palpation, nontender and no guarding Auscultation: normal bowel sounds Neuro General: patient oriented x3, gait normal, tone normal, moves all extremities, Normal light touch and pain sensation and no focal motor deficits Cranial nerves: Yes CN's II-XII intact bilaterally Cognition (Neuro): normal cognition Sensory Exam: No Sensory deficit (Neuro) Extrem General: Yes full ROM, Yes no joint enlargement, Yes no clubbing, cyanosis or edema and Yes no calf tenderness Results Reviewed Results Reviewed: Name: Hema Ramires Age/Sex: 63/M : 1960 Unit#: [id number] Attend Dr: Jeanna Harris MD Re08/17/24 Status: DEP REF Location: [facility] Disch: SPEC : [id number] ADNTE: 08/17/24 STATUS: COMP REQ : [id number] RECD: 08/17/24-[address]: Jeanna Harris MD COMP: 08/17/24 ENTERED: 08/17/[address]: ORDERED: Met Prof Fast, AST, ALT, Lipid Panel Test Result Flag Reference Sodium 137 135-145 mmol/L Potassium 4.0 3.3-5.1 mmol/L CL 104 96-108 mmol/L CO2 25 22-29 mmol/L Gap 12 12-20 BUN 15 9-16 mg/dL Creat 0.88 0.5-1.4 mg/dL eGFR > 60 Chronic Kidney Disease: Estimated GFR < 60 mL/min/1.73m2 Severe Kidney Disease: Estimated GFR < 15 mL/min/1.73m2 FBS 138 H 60-99 mg/dL A fasting glucose of 126 mg/dl or greater on more than one occasion is considered diagnostic of diabetes. CA 8.7 8.4-10.2 mg/dL AST (GOT) 23 5-37 U/L ALT (GPT) 32 0-40 U/L Triglyceride 78 <150 mg/dL Desirable Triglyceride: less than 150 mg/dL Borderline High Triglyceride 150-199 mg/dL High Triglyceride: 200-499 mg/dL Very High Triglyceride: greater than or equal to 5OO mg/dL Cholesterol 111 <200 mg/dL Desirable Cholesterol: less than 200 mg/dL Borderline High Cholesterol: 200-239 mg/dL High Cholesterol: greater than 239 mg/dL LDL Calculated 64 <100 mg/dL Desirable LDL: less than 100 mg/dL Near Optimal/Above Optimal LDL: 110-129 mg/dL Borderline High LDL: 130-159 mg/dL High LDL: 160-189 mg/dL Very High LDL: greater than or equal to 190 mg/dL HDL 32 L >40 mg/dL Desirable HDL: greater than 40 mg/dL Note: This HDL assay may give artificially low results in patients with liver disease. Laboratory Tests 04/17/24 08/17/24 09:20 06:58 Estimat Average Glucose 128 Hemoglobin A1c % 6.1 H Microalb/Creat Ratio 9.8 Coding Level of Care Code Est Pt Level 4 (59526) Complex EM visit Add On G2211 Diagnoses Type 2 diabetes mellitus without complication, without long-term current use of insulin E11.9 Essential hypertension I10 Mixed dyslipidemia E78.2 Additional Codes PHQ-9 - 83874 - PHQ-9 Billing: Yes ([id number]) Assessment & Plan Assessment & Plan (1) Type 2 diabetes mellitus without complication, without long-term current use of insulin: Code(s): E11.9 - Type 2 diabetes mellitus without complications Category: Medical Plan: Diabetes mellitus well controlled, continued on metformin, Ozempic at same dose. (2) Essential hypertension: Code(s): I10 - Essential (primary) hypertension Category: Medical Plan: Blood pressure at goal of less than 130/80. Continue with current medication. Reinforced importance of following a low sodium diet, getting regular exercise, and lowering stress levels. (3) Mixed dyslipidemia: Code(s): E78.2 - Mixed hyperlipidemia Category: Medical Plan: Reviewed recent fasting lipid profile with patient with levels within normal limits . Continue atorvastatin 80 mg daily , in addition to adherence to low-cholesterol diet and regular exercise, at least 30 minutes 3 to 4 times a week. Advised patient to make healthy food choices, eat more fruits, vegetables, whole grains, wild caught fish and low-fat dairy. Limit amount of meat and fried or fatty food products, as well as processed foods and fast foods. Follow-up scheduled with repeat fasting lipid panel in 6 months. Orders: Orders Lipid Panel 01/30/25 E11.9 - Type 2 diabetes mellitus without complications, E78.2 - Mixed hyperlipidemia, I10 - Essential (primary) hypertension, I25.10 - Atherosclerotic heart disease of [place] coronary artery without angina pectoris Hemoglobin A1c 01/30/25 E11.9 - Type 2 diabetes mellitus without complications, E78.2 - Mixed hyperlipidemia, I10 - Essential (primary) hypertension, I25.10 - Atherosclerotic heart disease of [place] coronary artery without angina pectoris Aspartate Amino Transferase 01/30/25 E11.9 - Type 2 diabetes mellitus without complications, E78.2 - Mixed hyperlipidemia, I10 - Essential (primary) hypertension, I25.10 - Atherosclerotic heart disease of [place] coronary artery without angina pectoris Basic Metabolic Panel Fasting 01/30/25 E11.9 - Type 2 diabetes mellitus without complications, E78.2 - Mixed hyperlipidemia, I10 - Essential (primary) hypertension, I25.10 - Atherosclerotic heart disease of [place] coronary artery without angina pectoris Alanine Aminotransferase 01/30/25 E11.9 - Type 2 diabetes mellitus without complications, E78.2 - Mixed hyperlipidemia, I10 - Essential (primary) hypertension, I25.10 - Atherosclerotic heart disease of [place] coronary artery without angina pectoris TSH reflex Free T4 01/30/25 E11.9 - Type 2 diabetes mellitus without complications, E78.2 - Mixed hyperlipidemia, I10 - Essential (primary) hypertension, I25.10 - Atherosclerotic heart disease of [place] coronary artery without angina pectoris Medications: Refilled Ozempic (semaglutide) for 4 weeks 0.25 mg (0.368 mL) subcut QWEEK 3 mL 5RF 30 days NS E11.65 - T ype 2 diabetes mellitus with hyperglycemia, E66.01 - Morbid (severe) obesity due to excess calories, Z68.36 - Body mass index [BMI] 36.0-36.9, adult metformin 1,000 mg PO BID 180 tabs 3RF
== END 2024-08-27 17:10 | disposition home or self-care (01) ==
LOC: HO.HMCC 15:57
PROVIDERS: PCP Internal Medicine; Visit Provider Internal Medicine
DX: E11.9 Type 2 diabetes mellitus without complications (principal); I10 Essential (primary) hypertension; E78.2 Mixed hyperlipidemia

== ENCOUNTER → 2024-08-27 15:56 | Outpatient (BNVA) | payer BC, SELFPAY | PROVIDERS: PCP Internal Medicine; Visit Provider Internal Medicine | DX: E11.9 Type 2 diabetes mellitus without complications (principal); I10 Essential (primary) hypertension; E78.2 Mixed hyperlipidemia; Z79.84 Long term (current) use of oral hypoglycemic drugs; Z79.899 Other long term (current) drug therapy | CPT/HCPCS: 96127 ==

== ENCOUNTER 2025-02-23 06:39 | Outpatient (REF) | payer BC, SELFPAY ==
--- OUTSIDE RECORDS SUMMARY | 2025-02-23 06:42 | XMS_ITS | Encounter Summary ---
Author Organization [facility] Address [address] [place] [phone] Phone Care Team Providers Care Web Services Architect Name Role Phone Hema Bean MD Primary Care Provider Encounter Details Date Type Department Care Team (Late st Contact Info) Description 09/02/2020 Procedure Pass [facility] Endoscopy Admitting Dept Virtual Department [address] [place] [address] Social History Tobacco Use Types Packs/Day Years Used Date Smoking Tobacco: Former Cigarettes Q uit: 2010 Smokeless Tobacco: Never Alcohol Use Standard Drinks/Week Comments Yes 6 (1 standard drink = 0.6 oz pur e alcohol) Sex and Gender Information Value Date Recorded Sex Assigned at Not on file Legal Sex Male 12:56 PM EDT Gender Identity Not on file Sexual Orientation Not on file documented as of this encounter Plan of Treatment Not on file documented as of this encounter Visit Diagnoses Not on filedocumented in this encounter Care Teams Web Services Architect Relationship Specialty Start Date End Date Hema Bean MD [address] [place] [id number] [email or web address] PCP - General Gastroenterology 09/08/19 documented as of this encounter Additional Source Comments The information contained in this document represents components of the legal health record. It is not the complete legal health record.[facility]
--- OUTSIDE RECORDS SUMMARY | 2025-02-23 06:42 | XMS_ITS | Clinical Summary ---
Author Organization [facility] Address [address] [place] [address] Phone Care Team Providers Care Vice President Payer Name Role Phone Symone Camarena MD Primary Care Provider [phone] Allergies No known active allergies Medications lisinopril (PRINIVIL,ZESTRI L) 20 MG tablet Take 20 mg by mouth daily. Active atorvastatin (LIPITOR) 80 MG tablet Take 80 mg by mouth daily. Active Social History Tobacco Use Types Packs/Day Years Used Date Smoking Tobacco: Former Cigarettes Q uit: 2010 Smokeless Tobacco: Never Alcohol Use Standard Drinks/Week Comments Yes 6 (1 standard drink = 0.6 oz pur e alcohol) Education Answer Date Recorded Are you interested in more education? Not on aaliyah e 07/27/2022 Are you concerned about learning? Not on file 07/27/2022 No 07/27/2022 No 07/27/2022 Digital Access Answer Date Recorded No 08/25/2022 No 08/25/2022 No 08/25/2022 Reliable internet access at home? Not on file 08/25/2022 Device with a working camera? Not on file Sex and Gender Information Value Date Recorded Sex Assigned at Not on file Legal Sex Male 12:56 PM EDT Gender Identity Not on file Sexual Orientation Not on file Last Filed Vital Signs Vital Sign Reading Time Taken Comments Blood Pressure 121/65 09/02/2020 11:22 AM EDT Pulse 75 09/02/2020 10:12 AM EDT Temperature 36 C (96.8 F) 09/02/2020 11:22 AM EDT Respiratory Rate 19 09/02/2020 11:22 AM EDT Oxygen Saturation 97% 09/02/2020 11:22 AM EDT Inhaled Oxygen Concentration - - Weight 72.6 kg (160 lb) 09/01/2020 8:50 AM EDT Height 177.8 cm (5' 10 ) 09/01/2020 8:50 AM EDT Body Mass Index 22.96 09/01/2020 8:50 AM EDT Plan of Treatment Health Maintenance Due Date Last Done Comments CREATININE LEVEL 1961 LIPID PANEL 1961 POTASSIUM LEVEL 1961 DEPRESSION SCREENING 1973 SMOKING Hx and SMOKELESS TOBACCO SCREENING 1974 HEPATITIS C SCREENING 09/07/1979 HIV ONE-TIME SCREENING (18-6 5 YEARS) 09/07/1979 COLOGUARD 2006 FIT TEST 2006 FOBT 2006 SIGMOIDOSCOPY 2006 VIRTUAL COLONOSCOPY 2006 ZOSTER VACCINES (1 of 2) 09/07/2011 PNEUMOCOCCAL VACCINES (50+ years) (2 of 2 - PCV) 09/07/2022 09/07/2021 INFLUENZA VACCINE (#1) 2024 , 01/30/2019, 01/05/2016 COVID-19 VACCINE (1 - 2024-2 6 season) 2024 Adult Td,Tdap Booster 11/09/2027 11/08/2017 , 04/10/2006 COLONOSCOPY 09/02/2030 09/02/2020 COLORECTAL CANCER SCREENING 09/02/2030 RSV VACCINE (1 - 1-dose 75+ series) 2036 HEPATITIS A VACCINES Completed 12/24/2014, 05/08/2006, 04/01/2006 HIB VACCINES Aged Out No longer eligi ble based on patient's age to complete this topic MENINGOCOCCAL VACCINES (ACWY) Aged Out No longer eligible based on patient's age to complete this topic MENINGOCOCCAL VACCINES (B) Aged Out N o longer eligible based on patient's age to complete this topic Medical Devices Not on file Procedures Procedure Name Priority Date/Time Associated Diagnosis Comments ENDOSCOPY, COLON 09/02/2020 10:5 0 AM EDT from Last 3 Months or Most Recently Relevant to Health Maintenance Results * ENDOSCOPY, COLON (09/02/2020 10:50 AM EDT) Narrative Transcriptions Symone Camarena MD - 09/02/2020 10:50 AM EDT Patient Name: Symone Ramires Attending MD:: SYMONE CAMARENA MD Procedure Date: 09/02/2020 10:50 AM Date of : 1960 Age: 59 Admit Type: Outpatient Gender: Male Room: [place] [address] Referring MD: Jeanna Harris MD Exam Type: Colonoscopy Indications: Surveillance: Personal history of adenomatous polypson last colonoscopy > 5 years ago, Last colonoscopy: May 2014 Medications: Monitored Anesthesia Care Procedure: Informed consent was obtained from the patient after discussion of the indications, limitations, alternatives, benefits, and risks of the procedure. Risks specifically discussed include but are not limited to medication reactions, missed lesions, bleeding, perforation, or the need for emergentsurgery. Throughout the procedure, the patient's bloodpressure, pulse, end-tidal CO2, and oxygen saturations were monitored continuously. The Olympus pediatric variable colonoscopePCF-[id number] #6 was introduced through the anus and advanced tothe cecum, identified by the appendiceal orifice,ileocecal valve and palpation. The colonoscopy was performed without difficulty. The patient tolerated theprocedure fairly well. The quality of the bowel preparationwas good. Complications: No immediate complications. Estimated blood loss: Minimal. Findings: The perianal and digital rectal examinations were normal. Pertinent negatives include normal sphincter tone. A 5 mm polyp was found in the proximal transverse colon. The polyp was sessile. The polyp was removed with a cold snare. Resection and retrieval were complete. Estimated blood loss was minimal. A 6 mm polyp was found at 105 cm proximal to theanus. The polyp was sessile. The polyp was removed with a cold snare. Resection and retrieval were complete. Estimated blood loss was minimal. A 18 mm polyp was found in the transverse colon. The polyp was semi-sessile. The polyp was removed with a hot snare. Resection and retrieval were complete. Estimated blood loss was minimal. To preventbleeding after the polypectomy, one hemostatic clip was successfully placed (MR conditional). There was no bleeding at the end of the procedure. Retroflexion in the right colon was performed. A few small-mouthed diverticula were found in the sigmoid colon and descending colon. The exam was otherwise without abnormality on direct and retroflexion views. Impression: - One 5 mm polyp in the proximal transverse colon, removed with a cold snare. Resected and retrieved. - One 6 mm polyp at 105 cm proximal to the anus, removed with a cold snare. Resected and retrieved. - One 18 mm polyp in the transverse colon, removedwith a hot snare. Resected and retrieved. Clip (MR conditional) was placed. - Diverticulosis in the sigmoid colon and in the descending colon. - The examination was otherwise normal on direct and retroflexion views. Recommendation: - I will send results of your biopsy to you and your referring physician or provider. If you do notreceive notification within 3 weeks, please call ouroffice. - Due to placement of endoscopic clip(s), avoidanceof MRI for 30 day is recommended. - No aspirin, ibuprofen, naproxen, or other non-steroidal anti-inflammatory drugs for 7 daysafter polyp removal. - Repeat colonoscopy in 3 years for surveillance of multiple polyps. SYMONE CAMARENA MD 09/02/2020 11:27:00 AM This report has been signed electronically. Number of Addenda: 0 Note Initiated On: 09/02/2020 10:50 AM Procedure Code(s): --- Professional --- 15193, Colonoscopy, flexible; with removal of tumor(s), polyp(s), or other lesion(s) by snare technique --- Technical --- 11473, Colonoscopy, flexible; with removal of tumor(s), polyp(s), or other lesion(s) by snare technique Diagnosis Code(s): --- Professional --- Z86.010, Personal history of colonic polyps D12.3, Benign neoplasm of transverse colon (hepatic flexure or splenic flexure) K57.30, Diverticulosis of large intestine without perforation or abscess without bleeding --- Technical --- Z86.010, Personal history of colonic polyps D12.3, Benign neoplasm of transverse colon (hepatic flexure or splenic flexure) K57.30, Diverticulosis of large intestine without perforation or abscess without bleeding CPT copyright 2018 [employer]. All rights reserved. The codes documented in this report are preliminary and upon egg tester reviewmay be revised to meet current compliance requirements. Procedure Date: 09/02/2020 10:50:34 AM [address] [place] [address] Jeanna Harris MD GI PROCEDURE ORDERABLE S Final Result from Last 3 Months or Most Recently Relevant to Health Maintenance Insurance PPO EPO PPO EPO PPO EPO PPO EPO PPO EPO PPO EPO PPO EPO PPO EPO [facility] PPO EPO Care Teams Vice President Payer Relationship Specialty Start Date End Date Symone Camarena MD [address] [place] [phone] [email or web address] PCP - General Gastroenterology 09/08/19 Additional Source Comments The information contained in this document represents components of the legal health record. It is not the complete legal health record.[facility]
[2025-02-23 10:58] LABS: Alanine Aminotransferase 32 U/L (0-40); Anion Gap 9 (12-20); Aspartate Amino Transferase 28 U/L (5-37); Blood Urea Nitrogen 16 mg/dL (9-16); Calcium 8.8 mg/dL (8.4-10.2); Carbon Dioxide 28 mmol/L (22-29); Chloride 105 mmol/L (96-108); Cholesterol 118 mg/dL (<200); Estimated Glomerular Filt Rate > 60; HDL Cholesterol 31 mg/dL (>40); Potassium 4.1 mmol/L (3.3-5.1); Sodium 138 mmol/L (135-145); Triglycerides 87 mg/dL (<150)
== END 2025-02-23 06:40 | disposition home or self-care (01) ==
LOC: HO.HMGCLDS 06:39
PROVIDERS: PCP Internal Medicine; Visit Provider Internal Medicine
DX: E11.9 Type 2 diabetes mellitus without complications (principal); I25.10 Atherosclerotic heart disease of native coronary artery without angina pectoris; I10 Essential (primary) hypertension; E78.2 Mixed hyperlipidemia
CPT/HCPCS: 36415; 80048; 80061; 83036; 84443; 84450; 84460

== ENCOUNTER 2025-03-01 07:20 | Outpatient (AMB) | payer BC, SELFPAY ==
--- OUTSIDE RECORDS SUMMARY | 2025-03-01 07:23 | XMS_ITS | Encounter Summary ---
Author Organization [facility] Address [address] [facility] [address] [place] [phone] Phone Care Team Providers Care Roll Coverer Name Role Phone Hema Bean MD Primary Care Provider [phone] Encounter Details Date Type Department Care Team (Late st Contact Info) Description 09/02/2020 Procedure Pass [facility] Endoscopy Admitting Dept Virtual Department [address] [place] [address] Social History Tobacco Use Types Packs/Day Years [...] on filedocumented in this encounter Care Teams Roll Coverer Relationship Specialty Start Date End Date Hema Bean MD [address] [place] [phone] [email or web address] PCP - General Gastroenterology 09/08/19 documented as of this encounter Additional Source Comments The information contained in this document represents components of the legal health record. It is not the complete legal health record.[facility]
--- OUTSIDE RECORDS SUMMARY | 2025-03-01 07:24 | XMS_ITS | Clinical Summary ---
Author Organization [facility] Address [address] [place] [address] Phone Care Team Providers Care Multiplex Operator Name Role Phone Symone Camarena MD Primary Care Provider [phone] Allergies No known active allergies Medications lisinopril [...] 59 Admit Type: Outpatient Gender: Male Room: [place] [address] Referring MD: Jeanna Harris MD Exam Type: [...] 10:50 AM Procedure Code(s): --- Professional --- 69750, Colonoscopy, flexible; with removal of tumor(s), polyp(s), or other lesion(s) by snare technique --- Technical --- 06112, Colonoscopy, flexible; with removal of tumor(s), polyp(s), [...] or abscess without bleeding CPT copyright 2018 [employer]. All rights reserved. The codes documented in this report are preliminary and upon opthalmic tech reviewmay be revised to meet current compliance requirements. Procedure Date: 09/02/2020 10:50:34 AM [address] [place] [address] Jeanna Harris MD GI PROCEDURE ORDERABLE S Final Result from Last 3 Months or Most Recently Relevant to Health Maintenance Insurance PPO EPO PPO EPO PPO EPO PPO EPO PPO EPO PPO EPO PPO EPO PPO EPO [facility] PPO EPO Care Teams Multiplex Operator Relationship Specialty Start Date End Date Symone Camarena MD [address] [place] [id number] [email or web address] PCP - General Gastroenterology 09/08/19 Additional Source Comments The information contained in this document represents components of the legal health record. It is not the complete legal health record.[facility]
--- NOTE | 2025-03-01 08:02 | MHC.PC.OV ---
Intake Visit Reasons: 6m follow up Intake Note: Pt is having a telehealth visit for his 6mo. f/u labs Allergies No Known Allergies Allergy (Verified 03/01/25 08:25) Medication List - Last Reconciled 03/01/25 by Jeanna Harris MD atorvastatin 80 mg PO DAILY blood sugar diagnostic (Contour Next Test Strips) Test blood sugar once a day blood-glucose meter (Contour Next Meter) Check fasting blood sugar twice a day before meals lancets (FreeStyle Lancets) Check fasting blood sugar twice a day as directed lisinopril 20 mg PO DAILY NS [Massage therapy Recommended therapeutic massage at least twice a month, lasting an hour each] metformin 1,000 mg PO DAILY metoprolol succinate ER (Toprol XL) 25 mg PO DAILY Ozempic (semaglutide) 0.25 mg (0.368 mL) subcut QWEEK 30 days NS Tobacco use date assessed: 03/01/25 Dental Screening Dental Screen Date: 03/01/25 Did you have a dental visit in the last 12 months?: Yes Did you have a dental problem in the last 6 months where you did not have access to dental care?: No Was dental information given to patient?: Patient has dentist HPI 6m follow up HPI Details The patient is a 64 year old individual presenting for a follow-up visit to review lab results and manage chronic conditions. The patient's history is significant for type 2 diabetes and obesity. Recent labs show an increase in HbA1c to 6.4% from a previous 6.1%, with average blood glucose rising from 128 to 137 mg/dL. The patient has gained a couple of pounds and currently weighs 233 lbs on his scale. Current medications include Ozempic 0.25 mg weekly and metformin 1000 mg which is taken once daily at night. No side effects from Ozempic and states that he has been exercising three times a week, but acknowledges eating too much lately. The patient also has a history of hypertension, managed with lisinopril, with a recent self-reported blood pressure of 134/74 mmHg. For hyperlipidemia, the patient takes atorvastatin, and recent labs indicated good cholesterol levels. Renal function and TSH were within normal limits on recent labs done. Regarding preventative care, the patient's last colonoscopy on record was in 2014, with a recommended 5-year follow-up, though the patient believes one was done more recently around [address] Hema Fan.. The patient has a diabetic eye exam scheduled for this week and has not yet received a flu shot for the current year. [facility] Medical History Type 2 diabetes mellitus without complication, without long-term current use of insulin Hx of adenomatous polyp of colon History of cardioversion History of transesophageal echocardiography (BARB) Hx of atrial flutter Shoulder pain, bilateral Diabetes mellitus with hyperglycemia, without long-term current use of insulin LANCE (obstructive sleep apnea) Current use of intermediate anticoagulation COVID-19 vaccination refused Incomplete right bundle branch block History of COVID-19 Essential hypertension Depression Mixed dyslipidemia Urethral stricture Surgical History No pertinent past surgical history Family History Father Diabetes mellitus Smoker High cholesterol Mother Cirrhosis Brother No problems noted. Sister No problems noted. Son No problems noted. Daughter No problems noted. 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 Current occupational exposures/hazards: Yes Cognitive needs: No Hearing needs: No Vision needs: Yes Questionnaire Thrive Questionnaire Date Thrive assessed: 04/23/24 I am a: Patient What is your living situation today?: I have a steady place to live Within the past 12 months, did the food you bought not last and you didn't have the money to get more?: I choose not to answer this question Within the past 12 months, did you worry whether your food would run out before you got money to buy more?: I choose not to answer this question Do you have trouble paying for medicines?: No Do you have trouble getting transportation to medical appointments?: No Do you have trouble paying your heating and electricity bill?: No Do you have trouble taking care of your child, family member or friend?: No Do you have trouble with day-to-day activities such as bathing, preparing meals, shopping, managing finances, etc.?: No Are you currently unemployed and looking for a job?: I choose not to answer this question Are you interested in more education?: No Please select the resources that you would like help with: None Currently or been in a relationship where the following occur: I choose not to answer THRIVE Score: 0 AUDIT C Alcohol Use Questionnaire (AUDIT-C) 1. How often do you have a drink containing alcohol?: Never Total Score: 0 BITA-7 AMB Questionnaire BITA-7 Date BITA - 7 assessed: 04/23/24 Source: Developed by Drs. Leo Moore, Awa Joaquin, Mychal Peter and colleagues, with an educational rigo from [employer]. Review of Systems Const Reports no additional complaints Eyes Details: Has appointment with [facility] on 03/04/2025 for his eye exam, retinopathy screening Denies change in vision ENT Reports no additional complaints Card Denies chest pain, Denies chest pain with activity, Denies edema, Denies lightheadedness, Denies dyspnea and Denies dyspnea on exertion Resp Denies cough, Denies dyspnea and Denies dyspnea on exertion GI Denies abdominal pain, Denies hematochezia, Denies change in bowel habits, Denies change in stool character and Denies heartburn Reports no additional complaints Musc Denies abnormal gait, Denies muscle cramps, Denies muscle weakness, Denies numbness, Denies radiating pain into limb and Denies tingling Skin/Breast Denies dry skin and Denies lesions Neuro Denies abnormal gait, Denies numbness and Denies tingling Psych Reports no additional complaints Endo Reports no additional complaints Joshua/Lymph Reports no additional complaints Physical exam (Primary Care) Tobacco/Smoking Status: Tobacco use Status Tobacco use date assessed 03/01/25 03/01/25 08:07 Patient Tobacco Use Status Former Tobacco user 03/01/25 08:07 Tobacco use type Cigarette 03/01/25 08:07 e-Cigarette/Vaping Use Never Used 03/01/25 08:07 Thrive Assessment: Date of Thrive Assessment Date Thrive assessed 04/23/24 03/01/25 08:07 Currently or been in a relationship where the following occur: I choose not to answer Telehealth Telehealth Telehealth Platform: [employer] Location of provider rendering services: practice address Location of patient: address on file Patient Identification confirmed using: Name, : Yes Telehealth method: video Patient verbally consented to treatment: Yes Patient verbally consented to billing insurance company: Yes Patient informed of any privacy concerns related to visit: Yes Minutes spent on Phone/Video with Pt.: 20 Results Reviewed Results Reviewed: Laboratory Tests 04/17/24 02/23/25 09:20 06:46 Estimat Average Glucose 137 Hemoglobin A1c % 6.4 H Microalb/Creat Ratio 9.8 Name: Hema Ramires Age/Sex: 64/M : 1960 Unit#: [id number] Attend Dr: Jeanna Harris MD Re02/23/25 Status: DEP REF Location: [facility] Disch: SPEC : [id number] DANTE: 02/23/25 STATUS: COMP REQ : [id number] RECD: 02/23/[address]: Jaenna Harris MD COMP: 02/23/25 ENTERED: 02/23/[address]: ORDERED: Met Prof Fast, AST, ALT, Lipid Panel, TSH Rflx Test Result Flag Reference Sodium 138 135-145 mmol/L Potassium 4.1 3.3-5.1 mmol/L CL 105 96-108 mmol/L CO2 28 22-29 mmol/L Gap 9 L 12-20 BUN 16 9-16 mg/dL Creat 1.05 0.5-1.4 mg/dL eGFR > 60 Chronic Kidney Disease: Estimated GFR < 60 mL/min/1.73m2 Severe Kidney Disease: Estimated GFR < 15 mL/min/1.73m2 FBS 123 H 60-99 mg/dL A fasting glucose from 100-125 mg/dl is considered impaired (pre-diabetes). CA 8.8 8.4-10.2 mg/dL AST (GOT) 28 5-37 U/L ALT (GPT) 32 0-40 U/L Triglyceride 87 <150 mg/dL Desirable Triglyceride: less than 150 mg/dL Borderline High Triglyceride 150-199 mg/dL High Triglyceride: 200-499 mg/dL Very High Triglyceride: greater than or equal to 5OO mg/dL Cholesterol 118 <200 mg/dL Desirable Cholesterol: less than 200 mg/dL Borderline High Cholesterol: 200-239 mg/dL High Cholesterol: greater than 239 mg/dL LDL Calculated 70 <100 mg/dL Desirable LDL: less than 100 mg/dL Near Optimal/Above Optimal LDL: 110-129 mg/dL Borderline High LDL: 130-159 mg/dL High LDL: 160-189 mg/dL Very High LDL: greater than or equal to 190 mg/dL HDL 31 L >40 mg/dL Desirable HDL: greater than 40 mg/dL Note: This HDL assay may give artificially low results in patients with liver disease. TSH 0.57 0.32-4.0 uIU/mL Coding Level of Care Code Tele Est Pt Level 4 (31232) Diagnoses Type 2 diabetes mellitus without complication, without long-term current use of insulin E11.9 Mixed dyslipidemia E78.2 Essential hypertension I10 Hx of adenomatous polyp of colon Z86.0101 Assessment & Plan Assessment & Plan (1) Type 2 diabetes mellitus without complication, without long-term current use of insulin: Code(s): E11.9 - Type 2 diabetes mellitus without complications Category: Medical Plan: Continue with metformin 1000 mg once daily at night, and increase Ozempic dose 2.5 mg injected subcutaneously once weekly. Has an appointment with [facility] this 03/04/2025. Reminded to get his yearly flu vaccine. Does not want to get a COVID booster. Repeat another hemoglobin A1c urine microalbumin in May 2025 (2) Mixed dyslipidemia: Code(s): E78.2 - Mixed hyperlipidemia Category: Medical Plan: Continue with the atorvastatin 80 mg daily, repeat another fasting lipid panel in May 2025. Reinforced importance of following low-cholesterol diet and getting regular exercise (3) Essential hypertension: Code(s): I10 - Essential (primary) hypertension Category: Medical Plan: Will continue on lisinopril 20 mg daily (4) Hx of adenomatous polyp of colon: Comment: Removed on colonoscopy 05/19/[address] fan repeat in 5 years Code(s): Z86.0101 - Personal history of adenomatous and serrated colon polyps Category: Medical Plan: Referred to Dr. Hema Fan at [facility] for a repeat screening colonoscopy Orders: Orders Lipid Panel 05/30/25 E11.9 - Type 2 diabetes mellitus without complications, E66.01 - Morbid (severe) obesity due to excess calories, E78.2 - Mixed hyperlipidemia, I10 - Essential (primary) hypertension, I25.10 - Atherosclerotic heart disease of [place] coronary artery without angina pectoris, I42.8 - Other cardiomyopathies, Z68.36 - Body mass index [BMI] 36.0-36.9, adult Alanine Aminotransferase 05/30/25 E11.9 - Type 2 diabetes mellitus without complications, E66.01 - Morbid (severe) obesity due to excess calories, E78.2 - Mixed hyperlipidemia, I10 - Essential (primary) hypertension, I25.10 - Atherosclerotic heart disease of [place] coronary artery without angina pectoris, I42.8 - Other cardiomyopathies, Z68.36 - Body mass index [BMI] 36.0-36.9, adult Aspartate Amino Transferase 05/30/25 E11.9 - Type 2 diabetes mellitus without complications, E66.01 - Morbid (severe) obesity due to excess calories, E78.2 - Mixed hyperlipidemia, I10 - Essential (primary) hypertension, I25.10 - Atherosclerotic heart disease of [place] coronary artery without angina pectoris, I42.8 - Other cardiomyopathies, Z68.36 - Body mass index [BMI] 36.0-36.9, adult Microalbumin, Random (w Creat) 05/30/25 E11.9 - Type 2 diabetes mellitus without complications, E66.01 - Morbid (severe) obesity due to excess calories, E78.2 - Mixed hyperlipidemia, I10 - Essential (primary) hypertension, I25.10 - Atherosclerotic heart disease of [place] coronary artery without angina pectoris, I42.8 - Other cardiomyopathies, Z68.36 - Body mass index [BMI] 36.0-36.9, adult Basic Metabolic Panel Fasting 05/30/25 E11.9 - Type 2 diabetes mellitus without complications, E66.01 - Morbid (severe) obesity due to excess calories, E78.2 - Mixed hyperlipidemia, I10 - Essential (primary) hypertension, I25.10 - Atherosclerotic heart disease of [place] coronary artery without angina pectoris, I42.8 - Other cardiomyopathies, Z68.36 - Body mass index [BMI] 36.0-36.9, adult Hemoglobin A1c 05/30/25 E11.9 - Type 2 diabetes mellitus without complications, E66.01 - Morbid (severe) obesity due to excess calories, E78.2 - Mixed hyperlipidemia, I10 - Essential (primary) hypertension, I25.10 - Atherosclerotic heart disease of [place] coronary artery without angina pectoris, I42.8 - Other cardiomyopathies, Z68.36 - Body mass index [BMI] 36.0-36.9, adult Referrals Gastroenterology Referral Z86.0101 - Personal history of adenomatous and serrated colon polyps Medications: Changed From Ozempic (semaglutide) for 4 weeks 0.25 mg (0.368 mL) subcut QWEEK 30 days 3 mL 5RF NS E11.65 - Type 2 diabetes mellitus with hyperglycemia, E66.01 - Morbid (severe) obesity due to excess calories, Z68.36 - Body mass index [BMI] 36.0-36.9, adult To Ozempic (semaglutide) for 4 weeks 0.5 mg (0.736 mL) subcut QWEEK 3 mL 6RF 30 days NS E11.65 - Type 2 diabetes mellitus with hyperglycemia, E66.01 - Morbid (severe) obesity due to excess calories, Z68.36 - Body mass index [BMI] 36.0-36.9, adult Refilled lisinopril 20 mg PO DAILY 90 tabs 4RF NS I10 - Essential (primary) hypertension atorvastatin 80 mg PO DAILY 90 tabs 4RF E78.2 - Mixed hyperlipidemia
== END 2025-03-01 09:21 | disposition home or self-care (01) ==
LOC: HO.HMCC 07:21
PROVIDERS: PCP Internal Medicine; Visit Provider Internal Medicine
DX: E11.9 Type 2 diabetes mellitus without complications (principal); E78.2 Mixed hyperlipidemia; I10 Essential (primary) hypertension; Z86.0101 Personal history of adenomatous and serrated colon polyps